=== PATIENT | male | born 1980 | race Caucasian/White ===

== ENCOUNTER 2024-11-01 15:20 | Inpatient (IN) | payer OTHER, SELFPAY ==
[2024-11-01 15:21] VITALS: BP 141/94; PULSE 99; RESP 18; TEMP 36.6; O2SAT 98
--- NOTE | 2024-11-01 15:37 | CT_ITS ---
We are attempting to reach an attending provider to discuss findings. An addendum with communication details will be sent when the communication is complete. EXAM: CT ABDOMEN AND PELVIS WITH INTRAVENOUS CONTRAST CLINICAL INDICATION: LLQ abd pain TECHNIQUE: Helically acquired images were obtained of the abdomen and pelvis with intravenous contrast. This CT exam was performed using one or more of the following dose reduction techniques: automated exposure control, adjustment of the mA and/or kV according to patient size, and/or use of iterative reconstruction technique. CONTRAST: IV 100mL [id number] COMPARISON: No relevant prior studies available. FINDINGS: LOWER THORAX: Minimal dependent atelectasis in the basilar lungs. No cardiomegaly. No significant pericardial effusion. ABDOMEN: LIVER: No significant abnormality. Homogeneous. No focal mass. GALLBLADDER AND BILE DUCTS: No significant abnormality. No calcified gallstones. No gallbladder distention or wall edema. No intra- or extrahepatic biliary ductal dilation. PANCREAS: No significant abnormality. No focal cystic or solid mass. SPLEEN: No significant abnormality. Normal size without focal cystic or solid mass. ADRENALS: No significant abnormality. No nodules. KIDNEYS AND URETERS: No significant abnormality. Normal renal size and position. No hydronephrosis. STOMACH AND BOWEL: Multiple loops of dilated small bowel are present with air-fluid levels most consistent with small bowel obstruction without discrete evidence of transition point. Colonic diverticulosis without evidence of acute diverticulitis. PELVIS: APPENDIX: No evidence of acute appendicitis. BLADDER: No significant abnormality. REPRODUCTIVE: Normal as visualized. No mass. ABDOMEN and PELVIS: INTRAPERITONEAL SPACE: No significant abnormality. No ascites or other fluid collection. No free air. BONES/JOINTS: No significant abnormality. No suspicious lytic or blastic abnormality. SOFT TISSUES: No significant abnormality. No discrete abdominal or pelvic wall hernia. VASCULATURE: No significant abnormality. Abdominal aorta is non-dilated. LYMPH NODES: Multiple prominent mesenteric lymph nodes are identified, nonspecific. CT/Abdomen/Pelvis W IV Cont ONLY IMPRESSION: 1. Multiple loops of dilated small bowel are present with air-fluid levels most consistent with small bowel obstruction without discrete evidence of transition point. 2. Colonic diverticulosis without evidence of acute diverticulitis. Electronically Signed: Meng Duran DO at 17:03 EST ,
--- NOTE | 2024-11-01 15:38 | ED.VIS.GI ---
HPI HPI - GI History of Present Illness Chief Complaint: Abd Pain Informant: patient Abdominal Pain/Flank Pain Onset: Days Context: Gradual Onset Timing: Intermittent Quality: Aching Location: LLQ Current Severity: Mild Maximum Severity: Mild Worsened by: Nothing Relieved by: Nothing Nausea/Vomiting/Emesis GI Symptom: Positive for Nausea and Vomiting Onset: Days Severity: Moderate Diarrhea/Melena/Hematochezia GI Symptom: Positive for Diarrhea Onset: Days Stool Quality: Positive for Watery Severity: Mild Associated Symptoms Associated Symptoms: Negative for Dysuria, Frequency, Hematuria or Urgency Narrative Narrative: Healthy 44-year-old male denies any prior abdominal surgery. Complaining of nausea, vomiting diarrhea for last 3 days since afternoon or evening. The vomiting is improved has been able to hold down p.o. fluids today. But he says it is aching intermittent left lower quadrant abdominal pain is never had before. Denies any trauma. Denies any dysuria. He has had a fever around 100. Prior similar symptoms: No Recent Illness/Hospitalization: No PFSH PFSH Medical History no medical history no medical history Home Medications ?Medication ?Instructions ?Recorded ?Last Taken ?Type No Known/Unobtainable [No Known 11/03/13 Unknown History Home Medications] Allergy/AdvReac Type Severity Reaction Status Date / Time No Known Allergies Allergy Verified 11/01/24 15:21 Family History no significant family his Surgical History no surgical history Social History Smoking Status: Former smoker ROS ROS ED ROS Narrative Nausea, vomiting and diarrhea. Fever. Left lower quadrant abdominal pain. Constitutional Constitutional ED: Denies chills or fever(s) ENT ENT ED: Denies ear pain Cardiovascular Cardiovascular: Denies chest pain Respiratory/Chest Respiratory/Chest: Denies cough or dyspnea Gastrointestinal Gastrointestinal: Reports abdominal pain, diarrhea, nausea and vomiting; Denies constipation or melena Genitourinary Genitourinary ED: Denies dysuria or hematuria Musculoskeletal Musculoskeletal: Denies arthralgias or back pain Integumentary Denies abscess or Abrasions Neurologic Neurologic: Denies headache(s) Psychiatric Psychiatric: Denies anxiety Endocrine Endocrinology: Denies polydipsia or polyphagia Hematologic/Lymphatic Hematologic/Lymphatic: Denies easy bleeding or easy bruising Allergic/Immunologic Allergic/Immunologic ED: Denies mouth swelling, tongue swelling or urticaria EXAM Physical Exam Narrative Exam Narrative: 44-year-old male sitting upright in bed. Vital signs are stable afebrile. No distress. H EENT exam unremarkable. Moist extremities. Neck nontender no lymphadenopathy. Lungs clear bilaterally. Heart regular rate and rhythm rate about 99 no murmur. Chest wall ribs nontender. Abdomen soft nondistended normal bowel sounds without peritoneal signs. Only tenderness is the left lower quadrant. Acute upper left upper quadrant nontender. No hernia or mass. No signs of obstruction. No pulsatile mass. No signs of trauma or bruising. Back nontender. Moving all 4 extremities. Nontender no edema. Normal strength and range of motion. Neurologically is awake and alert. Answering questions and following commands. No focal motor deficits. Const Vital Signs: 11/01/24 15:21 11/01/24 17:20 11/01/24 19:00 Temperature 97.8 F Temperature Source Temporal Pulse Rate 99 78 Respiratory Rate 18 Blood Pressure 141/94 H 138/80 H 128/89 H Blood Pressure Mean 109 99 102 Pulse Ox 98 Oxygen Delivery Method Room Air Positive well nourished and well developed; Negative for cachectic, contractures or unkempt General Appearance ED: well developed and NAD; Negative for unkempt, cachectic, contractures or pallor Nutritional Appearance: Negative for cachectic HEENT Reports moist mucous membranes normocephalic and atraumatic; Negative for trauma or tenderness Eyes PERRL and EOMs intact bilaterally General Eye ED: Negative for pale conjunctiva Neck no lymphadenopathy, supple and no JVD General: Negative for tenderness Carotids: Negative for other Lymph Lymphatic: other Resp normal respiratory effort and clear to auscultation bilaterally Effort and Inspection: Negative for respiratory distress Auscultation: Negative for rales, rhonchi, wheezes or diminished lung sounds Cardio regular rate, regular rhythm, S1 normal heart sound, S2 normal heart sound and no murmurs Rate: Negative for bradycardia or tachycardic Rhythm: Negative for abnormal rhythm GI non-distended and no masses; Negative for non-tender GI Narrative: Left lower quadrant tenderness only. No peritoneal signs. Inspection: Negative for abdominal distention Auscultation: normoactive bowel sounds Palpation: soft and tender; Negative for guarding, rigid, hernia, mass, pulsatile mass or rebound tenderness present Back/Spine no CVA tenderness Extremity full ROM General Extremety ED: Negative for edema or tenderness General Extremity: Negative for edema Neuro CN's II-XII intact bilaterally and moves all extremities Sensorium / Orientation: alert, oriented to person, oriented to place and oriented to time; Negative for orientation impaired Motor Exam: strength 5/5 throughout Psych mental status grossly normal and thought process normal Appearance: Negative for unkempt Attitude: No agitated Mood & Affect: Negative for depressed, anxious or tearful Skin no wounds General Skin Exam: Negative for jaundice or pallor Lesions: no lesions Rashes: no rashes Trauma: Negative for abrasion Nails: Negative for discolored MDM MDM MDM Narrative Medical decision making narrative: 44-year-old male left lower quadrant abdominal pain this is either viral gastroenteritis or possibly diverticulitis versus other.. CAT scan labs are pending. He did not waiting for pain but I will give him Zofran for his nausea. He is not have any urinary symptoms. Repeat exam patient doing much better at 7:20. He has Zofran and some morphine. His abdomen is benign. Given p.o. fluid challenge and will see how he is doing. Clinically I think this a viral gastroenteritis. I discussed the CAT scan results. With the radiologist.) the symptoms he said this could all be secondary to enteritis versus early small bowel obstruction. Patient had no prior abdominal surgery. Repeat exam at 9:25 PM. Still in recurrent pain. Is able to hold down fluids but makes him nauseated. Will treat this as a possible small bowel obstruction. Have the hospitalist and general surgeon on page. Patient will get a another dose of pain medication. I discussed test results with both he and his . History & Record Review Discussion w/independent historian: Patient Lab Data Attestation: I reviewed the patient's lab results. Lab results narrative: CBC normal. White count of 9. H&H 15 and 45. Platelets 264. Electrolytes gap 4. Normal BUN and creatinine. Glucose 111. Urinalysis shows no nitrates. 0 red cells. 5-10 white cells. 2+ bacteria. Culture will be sent. He is having no urinary symptoms. Labs: Laboratory Results - last 24 hr 11/01/24 11/01/24 15:33 15:45 WBC 9.2 RBC 4.91 Hgb 15.1 Hct 45.9 MCV 93.5 MCH 30.8 MCHC 32.9 RDW Std Deviation 43.7 RDW Coeff of [place] 12.8 Plt Count 264 MPV 11.0 Immature Gran % (Auto) 0.300 Neut % (Auto) 71.5 H Lymph % (Auto) 17.7 L [place] % (Auto) 9.3 Eos % (Auto) 0.9 Baso % (Auto) 0.3 Absolute Neuts (auto) 6.6 Absolute Lymphs (auto) 1.62 Nucleated RBC % 0 Sodium 137 Potassium 3.5 Chloride 103 Carbon Dioxide 30.0 Anion Gap 4 L BUN 11 Creatinine 0.98 Est GFR (MDRD) Af Amer 108 Est GFR (MDRD) Non-Af 89 BUN/Creatinine Ratio 11.3 Glucose 111 H Calcium 9.0 Urine Color Yellow Urine Clarity Sl. Cloudy Urine pH 6.0 Ur Specific [place] 1.015 Urine Protein 30 H Urine Glucose (UA) Normal Urine Ketones Negative Urine Occult Blood 10 H Urine Nitrite Negative Urine Bilirubin 1 H Urine Urobilinogen 8 H Ur Leukocyte Esterase 25 H Urine RBC 0 SEEN Urine WBC 5-10 SEEN Ur Squamous Epith Cells 0-5 SEEN Urine Bacteria 2+ Urine Mucus 2+ Radiography Diagnostic Testing: Clinical Impression(s) from Imaging Studies Abdomen/Pelvis CT 11/01/24 15:37 IMPRESSION: 1. Multiple loops of dilated small bowel are present with air-fluid levels most consistent with small bowel obstruction without discrete evidence of transition point. 2. Colonic diverticulosis without evidence of acute diverticulitis. Electronically Signed: Meng Duran DO at 17:03 EST , ADDENDUM: 11/01/24 9348 IMPRESSION: 1. Multiple loops of dilated small bowel are present with air-fluid levels most consistent with small bowel obstruction without discrete evidence of transition point. 2. Colonic diverticulosis without evidence of acute diverticulitis. N.B. : The above Results were Read Back by Meng Duran DO to James Knox MD, and understanding confirmed on 11/01/2024 17:12:24 (ET). Electronically Signed: Meng Duran DO at 17:03 EST , Discharge Plan Triage Chief Complaint: Abd Pain ED Provider: James Knox Dx/Rx/DC Orders Clinical Impression: Abdominal pain, SBO (small bowel obstruction), Vomiting, Diarrhea Prescriptions: No Action No Known Home Medications Primary Care Provider: Mark Johns Referrals: Care Physician,No Primary [Non-Staff] - Print Language: Lao Disposition Disposition: Acute Care Hospital
[2024-11-01] MEDS: Ondansetron 4 MG/2 ML Vial IV ×2 (15:41→20:18)
[2024-11-01 15:54] LABS: Red Blood Cells-Urine 0 SEEN /hpf (0-5)
[2024-11-01 15:55] LABS: Absolute Lymphocyte Count 1.62 X10^3/uL (0.83-4.51); Absolute Neutrophil Count 6.6 X10^3/uL (2.0-7.7); Basophil# 0.03 X10^3/uL; Basophil% 0.3 % (0-1); Eosinophil# 0.08 X10^3/uL; Eosinophils% 0.9 % (0-5); Hematocrit 45.9 % (40-54); Hemoglobin 15.1 g/dL (13.0-16.5); Lymphocyte # 1.62 X10^3/ul (0.83-4.51); Lymphocyte % 17.7 % (19-41); Mean Corp Hgb Conc 32.9 g/dL (32-36); Mean Corpuscular Hgb 30.8 pg (27.0-32.0); Mean Corpuscular Volume 93.5 fL (80-94); Monocyte# 0.85 X10^3/uL; Monocyte% 9.3 % (0-10); NRBC Flagged by Analyzer 0 % (0-5); Neutrophil # 6.55 X10^3/uL (2.7-7.7); Neutrophil % 71.5 % (47-70); Platelet Count 264 K/mm3 (150-450); RBC Distribution Width CV 12.8 % (11.6-14.6); RBC Distribution Width SD 43.7 fl (35.1-43.9); Red Blood Count 4.91 M/mm3 (4.6-6.2); White Blood Count 9.2 K/mm3 (4.4-11.0)
[2024-11-01 16:00] LABS: Color, Urine Yellow (Yellow); Glucose, Dipstick Normal (Normal); Ketone-Dipstick Negative (Negative); Leukocyte Esterase-Dipstick 25 /ul (Negative); Nitrite-Dipstick Negative (Negative); Occult Blood-Urine 10 /ul (Negative); Protein-Dipstick 30 mg/dl (Negative); Specific Gravity, Urine 1.015 (1.002-1.030); Urine Clarity Sl. Cloudy (Clear); Urine Urobilinogen 8 mg/dl (Normal)
[2024-11-01 16:04] LABS: Anion Gap 4 (5-15); BUN 11 mg/dL (7-18); BUN/Creat Ratio 11.3 RATIO (10-20); Chloride 103 mmol/L (98-107); Creatinine, Serum 0.98 mg/dL (0.70-1.30); EST Glomerular Filtration Rate 89 mL/min (>60); Est Glom Filt Rate - Afr Amer 108 mL/min (>60); Glucose 111 mg/dL (74-106); Potassium 3.5 mmol/L (3.5-5.1); Sodium Level 137 mmol/L (136-145)
[2024-11-01 16:13] LABS: Urine Bilirubin Dipstick 1 mg/dL (Negative)
[2024-11-01 16:18] LABS: White Blood Cells 5-10 SEEN /hpf (0-5)
[2024-11-01 16:19] LABS: Bacteria 2+ /hpf (None Seen); Mucous, Urine 2+ /hpf (<or=2+); Squamous Epithelial Cells - UA 0-5 SEEN /hpf (0-5)
[2024-11-01 17:20] VITALS: BP 138/80
[2024-11-01] MEDS: morphine 8 MG/ML Syringe 6 MG IV ×2 (17:46→21:33)
[2024-11-01 19:00] VITALS: BP 128/89; PULSE 78
[2024-11-01 20:20] VITALS: BMI 33.5
[2024-11-01 21:00] VITALS: BP 117/80; PULSE 91; RESP 16; RESP 18; TEMP 37.2; O2SAT 95
--- NOTE | 2024-11-01 22:30 | HP.PCM.HOS_ITS ---
HPI - General General Date of Admission: 11/01/24 HPI Narrative MG DALE, is a 44 M who presents to the hospital with nausea, vomiting, and diarrhea. He went to a potluck on Sunday and started having significant nausea and vomiting starting night. Over the course the last couple of days he has had increasing abdominal pain and cramping as well as continued nausea and vomiting. Today he did have an episode of very liquid stool and with his continued symptoms he presented to the hospital. Vital signs are stable and lab work is unremarkable, he is not dehydrated. CT scan of his abdomen pelvis does show dilated loops of small bowel which could be a severe viral gastroenteritis versus a small bowel obstruction however he denies a history of having any type of abdominal surgery there is no evidence of hernia and the only other diagnosis would be cancer which is unlikely at the moment as there is nothing seen on imaging. [facility] Medical History no medical history Home Medications ?Medication ?Instructions ?Recorded ?Last Taken ?Type No Known/Unobtainable [No Known 11/03/13 Unknown History Home Medications] Allergy/AdvReac Type Severity Reaction Status Date / Time No Known Allergies Allergy Verified 11/01/24 15:21 Family History (Updated 11/01/24 @ 22:[address] Danny Byrd MD) Other Heart disease Family History no significant family his Surgical History no surgical history no surgical history Social History Smoking Status: Former smoker ROS Constitutional Constitutional: Denies chills, fatigue, fever(s) or malaise Eyes Eyes: Denies blurry vision ENT HEENT: Denies headache(s) or nasal discharge Cardiovascular Cardiovascular: Denies chest pain, dyspnea on exertion or syncope Respiratory/Chest Respiratory/Chest: Denies cough, shortness of breath at rest or shortness of breath with exertion Gastrointestinal Gastrointestinal: Reports abdominal pain, diarrhea, nausea and vomiting; Denies constipation Genitourinary Genitourinary: Denies dysuria Neurologic Neurologic: Denies focal weakness, numbness or tremor(s) Psychiatric Psychiatric: Denies anxiety or depression Vital Signs Vital Signs Vital Signs: 11/01/24 15:21 11/01/24 17:20 11/01/24 19:00 Temperature 97.8 F Temperature Source Temporal Pulse Rate 99 78 Respiratory Rate 18 Blood Pressure 141/94 H 138/80 H 128/89 H Blood Pressure Mean 109 99 102 Pulse Ox 98 Oxygen Delivery Method Room Air 11/01/24 21:00 11/01/24 21:00 Temperature 98.9 F Temperature Source Pulse Rate 91 91 Respiratory Rate 16 18 Blood Pressure 117/80 117/80 Blood Pressure Mean 92 92 Pulse Ox 95 95 Oxygen Delivery Method Room Air Weight Weight: 240 lb 4.862 oz Body Mass Index (BMI) 33.5 Physical Exam Narrative General: Alert, Oriented x3, Cooperative, No apparent distress HEENT: Atraumatic, PERRLA, EOMI, Normocephalic Oral: Moist Mucosa Neck: Supple, No JVD Lungs: Clear to auscultation, Normal air movement, No rhonchi, No wheeze, No rales Cardiovascular: Tachycardic, Regular Rhythm, Normal S1, Normal S2, No murmurs Abdomen: Soft, minimal tender, Non-Distended, No Hepato-splenomegaly Extremities: No edema, Capillary Refill Less than 3 Seconds Skin: No rashes, No breakdown Musculoskeletal: No Tenderness to Palpation of Joints or Extremities Neurological: No focal neurological deficits, Motor Exam 5/5 strength throughout, Sensory exam intact to light touch and pain Psych/Mental Status: Normal Affect, Appropriate Results Lab / Micro Data 11/01/24 15:33 11/01/24 15:33 Labs: Laboratory Results - last 24 hr 11/01/24 15:33: WBC 9.2, RBC 4.91, Hgb 15.1, Hct 45.9, MCV 93.5, MCH 30.8, MCHC 32.9, RDW Std Deviation 43.7, RDW Coeff of Donavon 12.8, Plt Count 264, MPV 11.0, Immature Gran % (Auto) 0.300, Neut % (Auto) 71.5 H, Lymph % (Auto) 17.7 L, [place] % (Auto) 9.3, Eos % (Auto) 0.9, Baso % (Auto) 0.3, Absolute Neuts (auto) 6.6, Absolute Lymphs (auto) 1.62, Nucleated RBC % 0, Sodium 137, Potassium 3.5, Chloride 103, Carbon Dioxide 30.0, Anion Gap 4 L, BUN 11, Creatinine 0.98, Est GFR (MDRD) Af Amer 108, Est GFR (MDRD) Non-Af 89, BUN/Creatinine Ratio 11.3, G lucose 111 H, Calcium 9.0 11/01/24 15:45: Urine Color Yellow, Urine Clarity Sl. Cloudy, Urine pH 6.0, Ur Specific [place] 1.015, Urine Protein 30 H, Urine Glucose (UA) Normal, Urine Ketones Negative, Urine Occult Blood 10 H, Urine Nitrite Negative, Urine Bilirubin 1 H, Urine Urobilinogen 8 H, Ur Leukocyte Esterase 25 H, Urine RBC 0 SEEN, Urine WBC 5-10 SEEN, Ur Squamous Epith Cells 0-5 SEEN, Urine Bacteria 2+, Urine Mucus 2+ Imaging Radiology Impression Abdomen/Pelvis CT 11/01/24 15:37 IMPRESSION: 1. Multiple loops of dilated small bowel are present with air-fluid levels most consistent with small bowel obstruction without discrete evidence of transition point. 2. Colonic diverticulosis without evidence of acute diverticulitis. Electronically Signed: Meng Duran DO at 17:03 EST , ADDENDUM: 11/01/24 1719 IMPRESSION: 1. Multiple loops of dilated small bowel are present with air-fluid levels most consistent with small bowel obstruction without discrete evidence of transition point. 2. Colonic diverticulosis without evidence of acute diverticulitis. N.B. : The above Results were Read Back by Meng Duran DO to James Knox MD, and understanding confirmed on 11/01/2024 17:12:24 (ET). Electronically Signed: Meng Duran DO at 17:03 EST , Assessment & Plan Assessment/Plan (1) Viral gastroenteritis: PLAN: Plan 1. Viral versus bacterial gastroenteritis ? Started after he ate a potluck on Sunday ? Continue with supportive care ? Zofran as needed, IV fluids ? Small bowel obstruction is of less concern as he does not have the history for 1 however if he continues to have significant nausea, vomiting, abdominal pain without flatus or diarrhea may benefit from a small bowel follow-through ? Will hold off of any narcotics given the potential for ileus with the severity of enteritis that he has DVT: Ambulation 75 minutes was spent on direct patient care, including documentation as well as chart review and collaboration with colleagues Charges/Coding Visit Charges Inpatient E&M: 85727 Init Hosp L3
[2024-11-01 22:40] VITALS: BMI 32.5
[2024-11-01 23:00] VITALS: BP 119/85; PULSE 86; RESP 16; TEMP 36.6; O2SAT 97
[2024-11-01] MEDS: 0.9% Normal Saline (1000mL) 1,000 ML 75 ML IV (23:20)
[2024-11-02] MEDS: Acetaminophen 325 MG Tablet 650 MG PO ×3 (01:54→12:33)
[2024-11-02] MEDS: 0.9% Saline Lock 10 ML Syringe IV ×2 (01:57→21:23)
[2024-11-02] MEDS: Ondansetron 4 MG/2 ML Vial IV ×3 (01:57→21:23)
[2024-11-02 04:55] VITALS: BP 122/80; PULSE 91; RESP 16; TEMP 37.3; O2SAT 98
[2024-11-02 06:06] LABS: Absolute Lymphocyte Count 1.39 X10^3/uL (0.83-4.51); Absolute Neutrophil Count 7.9 X10^3/uL (2.0-7.7); Basophil# 0.02 X10^3/uL; Basophil% 0.2 % (0-1); Eosinophil# 0.02 X10^3/uL; Eosinophils% 0.2 % (0-5); Hematocrit 43.3 % (40-54); Hemoglobin 14.4 g/dL (13.0-16.5); Lymphocyte # 1.39 X10^3/ul (0.83-4.51); Lymphocyte % 13.2 % (19-41); Mean Corp Hgb Conc 33.3 g/dL (32-36); Mean Corpuscular Hgb 30.8 pg (27.0-32.0); Mean Corpuscular Volume 92.5 fL (80-94); Mean Platelet Vol. 10.9 fl (6.2-12.0); Monocyte# 1.16 X10^3/uL; NRBC Flagged by Analyzer 0 % (0-5); Neutrophil % 74.9 % (47-70); Platelet Count 239 K/mm3 (150-450); RBC Distribution Width CV 12.8 % (11.6-14.6); RBC Distribution Width SD 43.2 fl (35.1-43.9); Red Blood Count 4.68 M/mm3 (4.6-6.2); White Blood Count 10.5 K/mm3 (4.4-11.0)
[2024-11-02 06:56] LABS: Anion Gap 9 (5-15); BUN 12 mg/dL (7-18); BUN/Creat Ratio 14.5 RATIO (10-20); Calcium,Total 8.5 mg/dL (8.5-10.1); Chloride 101 mmol/L (98-107); Creatinine, Serum 0.83 mg/dL (0.70-1.30); EST Glomerular Filtration Rate 108 mL/min (>60); Est Glom Filt Rate - Afr Amer 130 mL/min (>60); Estimated Creatinine Clearance 142.22 ml/min; Glucose 111 mg/dL (74-106); Potassium 3.5 mmol/L (3.5-5.1); Sodium Level 136 mmol/L (136-145)
[2024-11-02] MEDS: Ensure Clear 120 ML Liquid PO (07:42)
[2024-11-02 09:35] VITALS: BP 127/81; PULSE 89; RESP 16; TEMP 36.9; O2SAT 95
[2024-11-02] MEDS: Dicyclomine 10 MG Capsule 20 MG PO ×2 (09:40→16:40)
[2024-11-02] MEDS: Metoclopramide 10 MG/2 ML Vial 5 MG IV (09:41)
[2024-11-02 11:29] VITALS: BP 120/84; PULSE 96; RESP 16; TEMP 37; O2SAT 96
[2024-11-02] MEDS: 0.9% Normal Saline (1000mL) 1,000 ML 75 ML IV (11:46)
--- NOTE | 2024-11-02 16:01 | CT_ITS ---
STUDY: CT Abdomen And Pelvis W/O Contrast Injection 11/02/2024 5:21 PM REASON FOR EXAM: Male, 44 years old. ABDOMINAL PAIN Ileus vs SBO TECHNIQUE: Transaxial images were obtained without oral contrast, and without intravenous contrast. Individualized dose optimization techniques were used for this CT. COMPARISON: Study done yesterday FINDINGS: There is bilateral infiltrate/ atelectasis. The visualized portions of the heart are within normal limits. Unremarkable liver. Unremarkable gallbladder and extrahepatic biliary system. Unremarkable spleen. Unremarkable pancreas. Unremarkable bilateral adrenal glands. No acute findings of the right kidney. No acute findings of the left kidney. Unremarkable visualized stomach. There are dilated loops of the small intestine with a non-distended colon consistent with a small bowel obstruction. There are multiple colonic diverticula consistent with diverticulosis. There is non-visualization of the appendix. Dilated small bowel loops have a stairstep pattern consistent for small bowel obstruction. There are no acute findings of the abdominal aorta. Unremarkable inferior vena cava. Unremarkable urinary bladder. Trace free fluid in the pelvis. There is an umbilical hernia containing fat. Unremarkable osseous structures. CT/Abdomen/Pelvis without Cont IMPRESSION: (NOT LISTED IN ORDER OF SIGNIFICANCE) Small bowel obstruction visualized. No evidence for transition point. The degree of small bowel dilation is worse. Bilateral pneumonia. Trace free fluid in the pelvis. Other findings as above. Electronically Signed: Sree Ann MD at 17:25 EST ,
--- NOTE | 2024-11-02 16:05 | PCM.PN.HOSP ---
Reason for Visit Reason for Visit: Nausea/vomiting/diarrhea Subjective Subjective Patient this morning stated he was not feeling much better. We maintained him on IV fluids and antiemetics and he did trial some clear liquid diet throughout the day but he stated he was getting more indigestion and felt worse. I discussed with him that it sounds like he may be developing an early on small bowel obstruction so we will repeat a CT of his abdomen pelvis and if that is positive we will go ahead and drop an NG and see how he feels tomorrow. Objective Data Objective Data Vital Signs: Vital Signs Temp Pulse Resp BP Pulse Ox O2 Del Method 98.6 F 96 16 120/84 H 96 Room Air 11/02/24 11:29 11/02/24 11:29 11/02/24 11:29 11/02/24 11:29 11/02/24 11:29 11/02/24 14:16 Oxygen Delivery Method Room Air Weight: 106.095 kg Body Mass Index (BMI) 32.5 Intake & Output: Intake and Output for Last 24 Hours 10/31/24 11/01/24 11/02/24 23:59 23:59 23:59 Intake Total 1232.5 / 1232.5 Balance 1232.5 / 1232.5 Lab / Micro Data 11/02/24 05:35 11/02/24 05:35 Labs: Laboratory Results - last 24 hr 11/01/24 15:45: Urine Color Yellow, Urine Clarity Sl. Cloudy, Urine pH 6.0, Ur Specific [place] 1.015, Urine Protein 30 H, Urine Glucose (UA) Normal, Urine Ketones Negative, Urine Occult Blood 10 H, Urine Nitrite Negative, Urine Bilirubin 1 H, Urine Urobilinogen 8 H, Ur Leukocyte Esterase 25 H, Urine RBC 0 SEEN, Urine WBC 5-10 SEEN, Ur Squamous Epith Cells 0-5 SEEN, Urine Bacteria 2+, Urine Mucus 2+ 11/02/24 05:35: WBC 10.5, RBC 4.68, Hgb 14.4, Hct 43.3, MCV 92.5, MCH 30.8, MCHC 33.3, RDW Std Deviation 43.2, RDW Coeff of Donavon 12.8, Plt Count 239, MPV 10.9, Immature Gran % (Auto) 0.500, Neut % (Auto) 74.9 H, Lymph % (Auto) 13.2 L, [place] % (Auto) 11.0 H, Eos % (Auto) 0.2, Baso % (Auto) 0.2, Absolute Neuts (auto) 7.9 H, Absolute Lymphs (auto) 1.39, Nucleated RBC % 0, Sodium 136, Potassium 3.5, Chloride 101, Carbon Dioxide 25.0, Anion Gap 9, BUN 12, Creatinine 0.83, Estim Creat Clear Calc 142.22, Est GFR (MDRD) Af Amer 130, Est GFR (MDRD) Non-Af 108, BUN/Creatinine Ratio 14.5, Glucose 111 H, Calcium 8.5 Radiography Diagnostic Testing: Radiology Impression Abdomen/Pelvis CT 11/01/24 15:37 IMPRESSION: 1. Multiple loops of dilated small bowel are present with air-fluid levels most consistent with small bowel obstruction without discrete evidence of transition point. 2. Colonic diverticulosis without evidence of acute diverticulitis. Electronically Signed: Meng Duran DO at 17:03 EST , ADDENDUM: 11/01/24 1719 IMPRESSION: 1. Multiple loops of dilated small bowel are present with air-fluid levels most consistent with small bowel obstruction without discrete evidence of transition point. 2. Colonic diverticulosis without evidence of acute diverticulitis. N.B. : The above Results were Read Back by Meng Duran DO to James Knox MD, and understanding confirmed on 11/01/2024 17:12:24 (ET). Electronically Signed: Meng Duran DO at 17:03 EST , Physical Exam Const alert, oriented x3, no apparent distress and well nourished; Negative for average body habitus or healthy appearing Constitutional Narrative: Obese, middle-aged, white male, lying in bed, appears uncomfortable but not toxic HEENT head/scalp atraumatic and moist oral mucous membranes HEENT Narrative: Mallampati 3, no thrush Head and Scalp: normocephalic Resp normal respiratory effort, no retractions, no use of accessory muscles and clear to auscultation bilaterally Auscultation: Negative for rales, rhonchi or wheezes Cardio regular rate, regular rhythm, S1 normal heart sound, S2 normal heart sound, no murmurs, no rub, no gallops and no clicks GI GI Narrative: Abdomen is distended, mild diffuse tenderness, bowel sounds are hypoactive, soft Extremity no clubbing, cyanosis or edema Extremity Narrative: Pedal pulses are 2+ Neuro moves all extremities and no focal motor deficits Speech: speech normal Psych Psych Narrative: Affect is slightly flat but likely related to not feeling well, eye contact is good and patient interacts appropriately Assessment & Plan Assessment/Plan (1) Enteritis: PLAN: Plan Enteritis due to unknown etiology -CT was suggestive of possible developing small bowel obstruction however patient was passing flatus on admission -Currently no flatus since this morning -Ongoing nausea vomiting and feels like stomach is getting further distended -Will continue IV fluids through the night -Make n.p.o. -Continue as needed antiemetics -Start as needed pain medication -Repeat CT of the abdomen pelvis with change in examine and if more impressive for bowel obstruction will start NG tube to low intermittent suction -If continues to have problems may need to involve general surgery tomorrow if bowel obstruction is present -Encourage frequent mobility Obesity -BMI 32.6 -Recommend weight loss -complicates treatment, prognosis, outcomes History of tobacco abuse -Remote DVT prophylaxis -Start Lovenox subcu daily CODE STATUS -Full code Charges/Coding Visit Charges Inpatient E&M: 05591 Subs Hosp L2
[2024-11-02 16:48] VITALS: BP 128/85; PULSE 84; RESP 16; TEMP 37.3; O2SAT 97
--- NOTE | 2024-11-02 17:04 | RAD_ITS ---
STUDY: XR Abdomen 1 View 11/02/2024 5:41 PM REASON FOR EXAM: Male, 44 years old. ABDOMINAL PAIN NGT -- KUB with both diaphragms for NG/OG Verification TECHNIQUE: XR Abdomen 1 View COMPARISON: None FINDINGS: Normal visualized lung bases. There are dilated loops of the small intestine with a non-distended colon consistent with a small bowel obstruction. There is a feeding tube/ nasogastric tube noted. The tip is in the region of the stomach. There is no demonstrated free abdominal air. The visualized liver, spleen and kidneys are grossly normal in size and morphology. Normal soft tissue structures. Normal visualized osseous structures. RAD/Abdomen Single View (Portable) IMPRESSION: There is a feeding tube/ nasogastric tube noted. The tip is in the region of the stomach. Small bowel dilation may suggest small bowel obstruction. Electronically Signed: Sree Ann MD at 18:15 EST ,
[2024-11-02] MEDS: Phenol/Sodium Phenolate 180ML 3 SPRAY MUCOUS MEM (18:17)
[2024-11-02 20:11] VITALS: BP 134/96; PULSE 95; RESP 16; TEMP 37.6; O2SAT 96
[2024-11-02] MEDS: 0.9% Normal Saline (100mL Bag) 100 ML 15 ML IV (21:16)
[2024-11-02] MEDS: Pantoprazole Sodium 40 MG in 0.9% Normal Saline (100mL MB+) 100 ML 330 MG IV (21:20)
[2024-11-02 22:49] VITALS: BP 136/91; PULSE 96; RESP 15; TEMP 36.8; O2SAT 95
[2024-11-03] MEDS: 0.9% Normal Saline (1000mL) 1,000 ML 75 ML IV (02:19)
[2024-11-03 04:36] VITALS: BP 122/85; PULSE 92; RESP 16; TEMP 36.9; O2SAT 95
[2024-11-03] MEDS: Enoxaparin 40 MG/0.4 ML Syringe SC (05:24)
[2024-11-03] MEDS: 0.9% Saline Lock 10 ML Syringe IV ×2 (06:43→10:43)
[2024-11-03] MEDS: Ondansetron 4 MG/2 ML Vial IV (06:43)
[2024-11-03 07:23] LABS: Absolute Lymphocyte Count 1.79 X10^3/uL (0.83-4.51); Absolute Neutrophil Count 5.6 X10^3/uL (2.0-7.7); Basophil# 0.03 X10^3/uL; Basophil% 0.3 % (0-1); Eosinophil# 0.05 X10^3/uL; Eosinophils% 0.6 % (0-5); Hematocrit 43.2 % (40-54); Hemoglobin 14.4 g/dL (13.0-16.5); Lymphocyte # 1.79 X10^3/ul (0.83-4.51); Lymphocyte % 20.8 % (19-41); Mean Corp Hgb Conc 33.3 g/dL (32-36); Mean Corpuscular Hgb 30.8 pg (27.0-32.0); Mean Corpuscular Volume 92.5 fL (80-94); Mean Platelet Vol. 10.7 fl (6.2-12.0); Monocyte% 12.8 % (0-10); NRBC Flagged by Analyzer 0 % (0-5); Neutrophil # 5.61 X10^3/uL (2.7-7.7); Neutrophil % 65.4 % (47-70); Platelet Count 258 K/mm3 (150-450); RBC Distribution Width CV 12.9 % (11.6-14.6); RBC Distribution Width SD 43.5 fl (35.1-43.9); Red Blood Count 4.67 M/mm3 (4.6-6.2); White Blood Count 8.6 K/mm3 (4.4-11.0)
[2024-11-03 07:45] VITALS: BP 140/85; PULSE 98; RESP 18; TEMP 36.5; O2SAT 93
[2024-11-03 07:46] VITALS: PULSE 90
[2024-11-03 08:10] LABS: ALB/GLOB Ratio 0.9 RATIO (0.9-2.4); AST(SGOT) 51 U/L (15-37); Alanine Aminotransfer ALT/SGPT 110 U/L (16-61); Albumin, Serum 3.3 g/dL (3.2-5.0); Alkaline Phosphatase 61 U/L (45-117); Anion Gap 8 (5-15); BUN 12 mg/dL (7-18); BUN/Creat Ratio 14.3 RATIO (10-20); Calcium,Total 8.5 mg/dL (8.5-10.1); Chloride 105 mmol/L (98-107); Creatinine, Serum 0.84 mg/dL (0.70-1.30); EST Glomerular Filtration Rate 106 mL/min (>60); Est Glom Filt Rate - Afr Amer 128 mL/min (>60); Estimated Creatinine Clearance 140.52 ml/min; Globulin 3.8 g/dL (2.2-4.2); Glucose 92 mg/dL (74-106); LDH 172 U/L (87-241); Magnesium 2.4 mg/dL (1.6-2.6); Phosphorus 3.1 mg/dL (2.5-4.9); Potassium 3.2 mmol/L (3.5-5.1); Protein, Total 7.1 g/dL (6.4-8.2); Sodium Level 139 mmol/L (136-145)
--- NOTE | 2024-11-03 08:14 | PCM.PN.HOSP ---
Reason for Visit Reason for Visit: Abdominal pain/nausea/vomiting Subjective Subjective Patient states he feels about thousand times better today. Passing flatus and tolerating clear liquids without any problem. Please that his NG tube was able to be removed. Anxious to go home tomorrow possible. Objective Data Objective Data Vital Signs: Vital Signs Temp Pulse Resp BP Pulse Ox O2 Del Method 97.7 F L 90 18 140/85 H 93 Room Air 11/03/24 07:45 11/03/24 07:46 11/03/24 07:45 11/03/24 07:45 11/03/24 07:45 11/03/24 07:46 Oxygen Delivery Method Room Air Weight: 106.095 kg Body Mass Index (BMI) 32.5 Intake & Output: Intake and Output for Last 24 Hours 11/01/24 11/02/24 11/03/24 23:59 23:59 23:59 Intake Total 1342.5 / 1342.5 1106 / 1106 Output Total 1875 / 1875 400 / 400 Balance -532.5 / -532.5 706 / 706 Lab / Micro Data 11/03/24 07:00 11/03/24 07:00 Labs: Laboratory Results - last 24 hr 11/03/24 07:00: WBC 8.6, RBC 4.67, Hgb 14.4, Hct 43.2, MCV 92.5, MCH 30.8, MCHC 33.3, RDW Std Deviation 43.5, RDW Coeff of Donavon 12.9, Plt Count 258, MPV 10.7, Immature Gran % (Auto) 0.100, Neut % (Auto) 65.4, Lymph % (Auto) 20.8, [place] % (Auto) 12.8 H, Eos % (Auto) 0.6, Baso % (Auto) 0.3, Absolute Neuts (auto) 5.6, Absolute Lymphs (auto) 1.79, Nucleated RBC % 0, Sodium 139, Potassium 3.2 L, Chloride 105, Carbon Dioxide 26.0, Anion Gap 8, BUN 12, Creatinine 0.84, Estim Creat Clear Calc 140.52, Est GFR (MDRD) Af Amer 128, Est GFR (MDRD) Non-Af 106, BUN/Creatinine Ratio 14.3, Glucose 92, Calcium 8.5, Phosphorus 3.1, Magnesium 2.4, Total Bilirubin 0.80, AST 51 H, ALT 110 H, Alkaline Phosphatase 61, Lactate Dehydrogenase 172, Total Protein 7.1, Albumin 3.3, Globulin 3.8, Albumin/Globulin Ratio 0.9, TSH 5.370 H Radiography Diagnostic Testing: Radiology Impression Abdomen/Pelvis CT 11/02/24 16:01 IMPRESSION: (NOT LISTED IN ORDER OF SIGNIFICANCE) Small bowel obstruction visualized. No evidence for transition point. The degree of small bowel dilation is worse. Bilateral pneumonia. Trace free fluid in the pelvis. Other findings as above. Electronically Signed: Sree Ann MD at 17:25 EST , KUB X-Ray 11/02/24 17:04 IMPRESSION: There is a feeding tube/ nasogastric tube noted. The tip is in the region of the stomach. Small bowel dilation may suggest small bowel obstruction. Electronically Signed: Sree Ann MD at 18:15 EST , Physical Exam Const alert, oriented x3, no apparent distress and well nourished; Negative for average body habitus or healthy appearing Constitutional Narrative: Obese, middle-aged, white male, sitting up in bed with multiple family members at bedside, appears comfortable, nontoxic HEENT head/scalp atraumatic and moist oral mucous membranes HEENT Narrative: Mallampati 3-4, no thrush Head and Scalp: normocephalic Resp normal respiratory effort, no retractions, no use of accessory muscles and clear to auscultation bilaterally Auscultation: Negative for rales, rhonchi or wheezes Cardio regular rate, regular rhythm, S1 normal heart sound, S2 normal heart sound, no murmurs, no rub, no gallops and no clicks GI normal to inspection, nondistended, normoactive bowel sounds, soft to palpation and non-tender Extremity no clubbing, cyanosis or edema Extremity Narrative: Pedal pulses are 2+ Neuro moves all extremities and no focal motor deficits Speech: speech normal Psych affect normal Psych Narrative: Very pleasant, interacts appropriately Assessment & Plan Assessment/Plan (1) Enteritis: (2) Viral gastroenteritis: (3) Infection due to Norovirus species: PLAN: Plan Terminal ileitis secondary to norovirus/ciguatoxin with complicating small bowel obstruction -CT was suggestive of possible developing small bowel obstruction however patient was passing flatus on admission -Small bowel obstruction now resolved -NG tube removed -Clear liquid diet -Patient did have small bowel follow-through which was negative for obstruction today -Probable advancement to regular diet tomorrow as long as he is tolerating well and discharged home -General Surgery following-appreciate input Hypokalemia -P.o. potassium replacement with 40 mill equivalents -Recheck in a.m. -Magnesium levels within normal limits Mild transaminitis -Baseline is unclear -Patient very likely has fatty liver at baseline -If stable would recommend that patient follow-up if trend down no need for further investigation -Previous lipids have not been well-controlled even back in 2013 Obesity -BMI 32.6 -Recommend weight loss -complicates treatment, prognosis, outcomes History of tobacco abuse -Remote DVT prophylaxis -Continue subcu Lovenox CODE STATUS -Full code Charges/Coding Visit Charges Inpatient E&M: 07271 Subs Hosp L2
--- NOTE | 2024-11-03 08:24 | CON.PCM.SX_ITS ---
Assessment & Plan Assessment/Plan (1) SBO (small bowel obstruction): PLAN: I have been consulted in conjunction with Dr. Mckeon. He will independently evaluate this patient. Patient is a 44 y/o M who presents with a 4 day history of nausea, vomiting, diarrhea and abdominal pain. CT scan of ab/pel demonstrated small bowel obstruction. Ng tube was placed and removed approximately 2275 cc throughout yesterday and last night. Recommend small bowel follow-through today with Gastrografin through NG tube with KUB immediately, 1H and 3H. No surgical intervention planned at this time. Will determine future treatment plan once the small bowel follow-through is completed. Patient has had the opportunity to ask and have questions answered. Plan for conservative measures and proceed with surgical intervention only if symptoms worsen. Patient verbally understands and agrees with the plan. Thank you for allowing us to participate in this patient's care. HPI Consult Data Date of Consult: 11/03/24 HPI Narrative Reason for Consultation: Small bowel obstruction HPI Narrative: MG DALE, is a 44 M who presents with a 4 day history of nausea, vomiting and abdominal pain. Patient states on Sunday night he had a [facility]. He notes over eating there. He stated he had a lot of guacamole and little cocktail hot dogs. He states there was no raw food or under cooked food and no one else that was there was sick. He stated he woke up and started vomiting every hour for the entire day. he noted by Sunday he was feeling better and only had some abdominal pressure. He tried eating saltine crackers and by Sunday evening, he felt worse again. Sunday morning he felt better and was able to eat a little something. Patient stated throughout the day Sunday his symptoms returned and he went to urgent care, where he was sent to the ED. He states his last bowel movement was on Sunday. He states he had diarrhea on and has not had any bowel movement since. He denies any previous abdominal surgeries. He notes taking a supplement daily otherwise no medications routinely. He notes recently having a routine check up with his PCP on Sunday without any concerns. He denies having previous small bowel issues. CT scan ab/pel demonstrating small bowel dilation, bilateral pneumonia, trace free fluid in the pelvis. NG tube was placed on 12/22/24. KUB demonstrated tip in the stomach. Small bowel dilation may suggest bowel obstruction. [facility] Medical History no medical history Home Medications ?Medication ?Instructions ?Recorded ?Last Taken ?Type No Known/Unobtainable [No Known 11/03/13 Unknown History Home Medications] Allergy/AdvReac Type Severity Reaction Status Date / Time No Known Allergies Allergy Verified 11/01/24 15:21 Family History (Updated 11/01/24 @ 22:[address] Danny Byrd MD) Other Heart disease Family History no significant family his Surgical History no surgical history Social History Smoking Status: Former smoker ROS Constitutional Constitutional: Reports systems reviewed and no addt'l complaints, except as documented Eyes Eyes: Reports systems reviewed and no addt'l complaints, except as documented ENT HEENT: Reports systems reviewed and no addt'l complaints, except as documented Cardiovascular Cardiovascular: Reports systems reviewed and no addt'l complaints, except as documented Respiratory/Chest Respiratory/Chest: Reports systems reviewed and no addt'l complaints, except as documented Gastrointestinal Gastrointestinal: Reports systems reviewed and no addt'l complaints, except as documented Genitourinary Genitourinary: Reports systems reviewed and no addt'l complaints, except as documented Musculoskeletal Musculoskeletal: Reports systems reviewed and no addt'l complaints, except as documented Integumentary Integumentary: Reports systems reviewed and no addt'l complaints, except as documented Neurologic Neurologic: Reports systems reviewed and no addt'l complaints, except as documented Psychiatric Psychiatric: Reports systems reviewed and no addt'l complaints, except as documented Endocrine Endocrinology: Reports systems reviewed and no addt'l complaints, except as documented Hematologic/Lymphatic Hematologic/Lymphatic: Reports systems reviewed and no addt'l complaints, except as documented Allergic/Immunologic Allergic/Immunologic: Reports systems reviewed and no addt'l complaints, except as documented Physical Exam Const alert, oriented x3 and no apparent distress HEENT normocephalic and head/scalp atraumatic HEENT Narrative: NG tube intact Eyes PERRL Neck full ROM Lymph Lymphatic: no lymphadenopathy noted Resp normal respiratory effort and clear to auscultation bilaterally Cardio regular rate and regular rhythm GI GI Narrative: Abdomen- soft, nontender to palpation. Hypoactive bowel sounds. no CVA tenderness Back/Spine no CVA tenderness Extremity normal to inspection Skin no rashes or lesions noted Neuro no focal motor deficits and no sensory deficits noted Psych thought process normal and cooperative Lab / Micro Data 11/03/24 07:00 11/03/24 07:00 Labs: Laboratory Results - last 24 hr 11/03/24 07:00: WBC 8.6, RBC 4.67, Hgb 14.4, Hct 43.2, MCV 92.5, MCH 30.8, MCHC 33.3, RDW Std Deviation 43.5, RDW Coeff of [place]avon 12.9, Plt Count 258, MPV 10.7, Immature Gran % (Auto) 0.100, Neut % (Auto) 65.4, Lymph % (Auto) 20.8, [place] % (Auto) 12.8 H, Eos % (Auto) 0.6, Baso % (Auto) 0.3, Absolute Neuts (auto) 5.6, Absolute Lymphs (auto) 1.79, Nucleated RBC % 0, Sodium 139, Potassium 3.2 L, Chloride 105, Carbon Dioxide 26.0, Anion Gap 8, BUN 12, Creatinine 0.84, Estim Creat Clear Calc 140.52, Est GFR (MDRD) Af Amer 128, Est GFR (MDRD) Non-Af 106, BUN/Creatinine Ratio 14.3, Glucose 92, Calcium 8.5, Phosphorus 3.1, Magnesium 2.4, Total Bilirubin 0.80, AST 51 H, ALT 110 H, Alkaline Phosphatase 61, Lactate Dehydrogenase 172, Total Protein 7.1, Albumin 3.3, Globulin 3.8, Albumin/Globulin Ratio 0.9, TSH 5.370 H Imaging Radiology Impression Abdomen/Pelvis CT 11/02/24 16:01 IMPRESSION: (NOT LISTED IN ORDER OF SIGNIFICANCE) Small bowel obstruction visualized. No evidence for transition point. The degree of small bowel dilation is worse. Bilateral pneumonia. Trace free fluid in the pelvis. Other findings as above. Electronically Signed: Sree Ann MD at 17:25 EST , KUB X-Ray 11/02/24 17:04 IMPRESSION: There is a feeding tube/ nasogastric tube noted. The tip is in the region of the stomach. Small bowel dilation may suggest small bowel obstruction. Electronically Signed: Sree Ann MD at 18:15 EST , Charges/Coding Visit Charges Inpatient E&M: 01348 Init Hosp L2
--- NOTE | 2024-11-03 08:48 | RAD_ITS ---
HISTORY: Small bowel obstruction -- Gastrografin; KUB immed, 1H, and 3H TECHNIQUE: Gastrografin oral contrast was administered to the patient. Immediate, 1 hour, and 3 hour films obtained. 5 images. COMPARISON: Prior day. FINDINGS: Nasogastric tube tip at the level of the proximal duodenum. Multiple mildly dilated small bowel loops on the marketing operations analyst image. Injection of nasogastric tube with contrast entering multiple dilated small bowel loops in the abdomen. Contrast identified in the right colon on the last image, which is labeled 60 minutes. Scattered stool and air throughout the colon down to the level of the rectum. RAD/Small Bowel Series Only IMPRESSION: Partial small bowel obstruction with mildly dilated small bowel loops and contrast in the right colon on the 60 minute image. Electronically Signed: Carmen Byers MD at 11:35 EST ,
[2024-11-03] MEDS: Pantoprazole Sodium 40 MG in 0.9% Normal Saline (100mL MB+) 100 ML 330 MG IV (10:42)
--- NOTE | 2024-11-03 10:47 | NURSING ---
Ng tube clamped.
[2024-11-03 14:03] VITALS: BP 130/92; PULSE 110; RESP 16; TEMP 37.2; O2SAT 96
--- NOTE | 2024-11-03 15:21 | CASEMGMT ---
MEL MORALES Assessment Face to Face with patient for initial transition planning/care coordination assessment. MEL MORALES introduced self and role at [facility], pt voices understanding. Pt is A&Ox4 and is resting comfortably in bed and is calm. Care providers, pharmacy, and demographics verified. Admitting dx: Gastroenteritis LACE Strata: 1 PCP: Mark Johns Specialists: Denies Preferred Pharmacy: [facility] Insurance: [employer] Prescription Benefit: Yes LNOK: Diane Roach (W) Living Arrangements: Pt lives with his and adult step son in a bi-level home with 6 steps to the upper and lower portions ADLs/IADLs: Ind Transportation: Self, DME: BP Monitor. Denies further needs HHC/SNF: Denies history or needs Pt?s goal: Home Plan: Home no needs. 6-Click is 24. Pt states that he feels safe returning home with his once he is medically ready and denies further questions, concerns, or needs at this time. Pearl Nash RN, CM
[2024-11-03] MEDS: Ensure Clear 120 ML Liquid PO ×2 (16:28→21:03)
[2024-11-03] MEDS: Potassium Chloride Oral Tablet 20 MEQ 40 MEQ PO (16:29)
[2024-11-03 20:57] VITALS: BP 118/76; PULSE 71; RESP 16; TEMP 37; O2SAT 98
[2024-11-04 03:11] VITALS: BP 120/73; PULSE 73; RESP 16; TEMP 36.8; O2SAT 95
[2024-11-04] MEDS: 0.9% Saline Lock 10 ML Syringe IV (03:13)
[2024-11-04] MEDS: Enoxaparin 40 MG/0.4 ML Syringe SC (06:15)
[2024-11-04 06:24] LABS: ALB/GLOB Ratio 0.9 RATIO (0.9-2.4); AST(SGOT) 29 U/L (15-37); Alanine Aminotransfer ALT/SGPT 86 U/L (16-61); Albumin, Serum 3.1 g/dL (3.2-5.0); Alkaline Phosphatase 54 U/L (45-117); Anion Gap 3 (5-15); BUN 9 mg/dL (7-18); BUN/Creat Ratio 11.8 RATIO (10-20); Calcium,Total 8.8 mg/dL (8.5-10.1); Chloride 107 mmol/L (98-107); Creatinine, Serum 0.76 mg/dL (0.70-1.30); EST Glomerular Filtration Rate 118 mL/min (>60); Est Glom Filt Rate - Afr Amer 143 mL/min (>60); Estimated Creatinine Clearance 155.32 ml/min; Globulin 3.4 g/dL (2.2-4.2); Glucose 96 mg/dL (74-106); Potassium 3.3 mmol/L (3.5-5.1); Protein, Total 6.5 g/dL (6.4-8.2); Sodium Level 138 mmol/L (136-145)
--- NOTE | 2024-11-04 07:06 | PN.HOSP_ITS ---
Reason for Visit Reason for Visit: Diagnoses Acute gastroenteropathy due to [place] agent (11/03/24) Viral intestinal infection, unspecified (11/03/24) Noninfective gastroenteritis and colitis, unspecified (11/03/24) Unspecified intestinal obstruction, unspecified as to partial versus complete obstruction (11/03/24) Subjective Subjective Patient overnight with clinical continued improvement status post NG tube removal tolerating clears and now full liquids this a.m. with ongoing flatus and bowel movements. He denies any marked abdominal cramping or discomfort. He does state he still has some mild distention but this is markedly improved since initial ED presentation. Patient denies fevers, chills, nausea, emesis, chest pain or dyspnea. Objective Data Objective Data Vital Signs: Vital Signs Temp Pulse Resp BP Pulse Ox O2 Del Method 98.3 F 73 16 120/73 95 Room Air 11/04/24 03:11 11/04/24 03:11 11/04/24 03:11 11/04/24 03:11 11/04/24 03:11 11/04/24 03:11 Oxygen Delivery Method Room Air Weight: 233 lb 14.4 oz Body Mass Index (BMI) 32.5 Intake & Output: Intake and Output for Last 24 Hours 11/02/24 11/03/24 11/04/24 23:59 23:59 23:59 Intake Total 1342.5 / 1342.5 2516 / 2516 300 / 300 Output Total 1875 / 1875 550 / 550 Balance -532.5 / -532.5 1965 / 1965 300 / 300 Lab / Micro Data 11/03/24 07:00 11/04/24 05:23 Labs: Laboratory Results - last 24 hr 11/03/24 07:00: WBC 8.6, RBC 4.67, Hgb 14.4, Hct 43.2, MCV 92.5, MCH 30.8, MCHC 33.3, RDW Std Deviation 43.5, RDW Coeff of [place] 12.9, Plt Count 258, MPV 10.7, Immature Gran % (Auto) 0.100, Neut % (Auto) 65.4, Lymph % (Auto) 20.8, Richardson % (Auto) 12.8 H, Eos % (Auto) 0.6, Baso % (Auto) 0.3, Absolute Neuts (auto) 5.6, Absolute Lymphs (auto) 1.79, Nucleated RBC % 0, Sodium 139, Potassium 3.2 L, Chloride 105, Carbon Dioxide 26.0, Anion Gap 8, BUN 12, Creatinine 0.84, Estim Creat Clear Calc 140.52, Est GFR (MDRD) Af Amer 128, Est GFR (MDRD) Non-Af 106, BUN/Creatinine Ratio 14.3, Glucose 92, Calcium 8.5, Phosphorus 3.1, Magnesium 2.4, Total Bilirubin 0.80, AST 51 H, ALT 110 H, Alkaline Phosphatase 61, Lactate Dehydrogenase 172, Total Protein 7.1, Albumin 3.3, Globulin 3.8, Albumin/Globulin Ratio 0.9, TSH 5.370 H 11/04/24 05:23: Sodium 138, Potassium 3.3 L, Chloride 107, Carbon Dioxide 28.0, Anion Gap 3 L, BUN 9, Creatinine 0.76, Estim Creat Clear Calc 155.32, Est GFR (MDRD) Af Amer 143, Est GFR (MDRD) Non-Af 118, BUN/Creatinine Ratio 11.8, Glucose 96, Calcium 8.8, Total Bilirubin 0.50, AST 29, ALT 86 H, Alkaline Phosphatase 54, Total Protein 6.5, Albumin 3.1 L, Globulin 3.4, Albumin/Globulin Ratio 0.9 Micro: Microbiology 11/01/24 14:54 Urine, Clean Catch Urine Culture - Final Culture exhibits no growth. 11/03/24 10:35 Stool Enteric Bacteriology - Final Shiga Toxin 1 Norovirus Radiography Diagnostic Testing: Radiology Impression Small Bowel X-Ray 11/03/24 08:48 IMPRESSION: Partial small bowel obstruction with mildly dilated small bowel loops and contrast in the right colon on the 60 minute image. Electronically Signed: Carmen Byers MD at 11:35 EST , Physical Exam Narrative Physical Examination: General: Awake, alert, oriented x 3 and cooperative, seated upright in the MS bed, notes feeling improved since initial presentation and tolerating currently falls. Skin: Normal color, normal turgor, no icterus, no cyanosis except occasional stage ecchymoses, abrasion. HEENT: AT/NC, EOMI, PERRLA, MMM, status post NG tube. Lungs: CTA bilaterally, moderate effort, mild decrease BL bases, no rales, ronchi or wheezing. Heart: Regular rate and rhythm; no gallop, rub audible. Abdomen: Soft, obese, NTTP, ND, mildly hyperactive BS. Extremities: No cyanosis, clubbing, or edema. Neurological: Patient awake, alert, oriented as noted, cognitive function intact; pupils equally reactive to light and accommodation, cranial nerves grossly normal, moving all 4 extremities, no focal deficits, strength improving, mildly globally decreased. Psychiatric: Affect appears fatigued otherwise normal, no acute evidence of depressive or anxiety feelings. Assessment & Plan Assessment/Plan (1) Enteritis: (2) Viral gastroenteritis: (3) Infection due to Norovirus species: PLAN: Plan The patient is a 44 y/o M w/ PMHx: Obesity, Former tobacco use with otherwise no marked medical history who presents to the [facility] ED on 11/01/2024 with history of intractable nausea, emesis, abdominal pain and cramping not improving prompting eventual ED evaluation. #1. Acute terminal ileitis secondary to norovirus/ciguatoxin with complicating small bowel obstruction: ED evaluation with noted: CT concerning for possible developing small bowel obstruction, admitted to medical surgical floor, initial NG tube placed, surgery consulted, began to have flatus onset 11/03/2024, NG tube removed, started on a clear liquid diet, 11/03/2024 small bowel follow- through noted to be negative, likely plan advancement of diet per surgery discretion 11/04/2024. Once patient tolerating appropriate diet with plan discharge to home with surgery follow-up, potentially today per surgery note. #2. Hypokalemia: Admission K+ 3.3, magnesium recently checked and normal range, will give additional supplementation, repeat level in AM. #3. Mild transaminitis, unclear etiology: Suspect likely underlying fatty liver disease, per review of previous noted hyperlipidemia poorly controlled even back in 2013, 11/04/2024 T. bili 0.50, AST/LT 29/86, alk phos 54, encourage continued outpatient follow-up. #4. Obesity: Weight loss and lifestyle changes encouraged. #5. Former tobacco use: Encourage continued tobacco cessation. #6. DVT prophylaxis: Lovenox. Charges/Coding Visit Charges Inpatient E&M: 83057 Subs Hosp L2
[2024-11-04] MEDS: Potassium Chloride Oral Tablet 20 MEQ 40 MEQ PO (08:54)
[2024-11-04 08:58] VITALS: BP 118/76; PULSE 75; RESP 16; TEMP 36.6; O2SAT 97
[2024-11-04] MEDS: Ensure Clear 120 ML Liquid PO (12:15)
--- NOTE | 2024-11-04 13:28 | PCM.PN.SRG ---
Subjective Subjective Patient states he is doing better today especially since his NG tube is removed yesterday. He has tolerated clear liquid diet and has now been advanced to full liquid diet which she seems to be tolerating as well. He still states that his abdomen is still little bloated but feels much improved. He is still passing flatus and bowel movements Objective Data Objective Data Vital Signs: Vital Signs Temp Pulse Resp BP Pulse Ox O2 Del Method 97.9 F 75 16 118/76 97 Room Air 11/04/24 08:58 11/04/24 08:58 11/04/24 08:58 11/04/24 08:58 11/04/24 08:58 11/04/24 08:58 Oxygen Delivery Method Room Air Weight: 233 lb 14.4 oz Body Mass Index (BMI) 32.5 Intake & Output: Intake and Output for Last 24 Hours 11/02/24 11/03/24 11/04/24 23:59 23:59 23:59 Intake Total 1342.5 / 1342.5 2516 / 2516 900 / 900 Output Total 1875 / 1875 550 / 550 Balance -532.5 / -532.5 1965 / 1965 900 / 900 Lab / Micro Data 11/03/24 07:00 11/04/24 05:23 Labs: Laboratory Results - last 24 hr 11/04/24 05:23: Sodium 138, Potassium 3.3 L, Chloride 107, Carbon Dioxide 28.0, Anion Gap 3 L, BUN 9, Creatinine 0.76, Estim Creat Clear Calc 155.32, Est GFR (MDRD) Af Amer 143, Est GFR (MDRD) Non-Af 118, BUN/Creatinine Ratio 11.8, Glucose 96, Calcium 8.8, Total Bilirubin 0.50, AST 29, ALT 86 H, Alkaline Phosphatase 54, Total Protein 6.5, Albumin 3.1 L, Globulin 3.4, Albumin/Globulin Ratio 0.9 Micro: Microbiology 11/01/24 14:54 Urine, Clean Catch Urine Culture - Final Culture exhibits no growth. 11/03/24 10:35 Stool Enteric Bacteriology - Final Shiga Toxin 1 Norovirus Physical Exam Narrative He is alert and oriented x 3. He is in no acute distress. Abdomen is soft and mildly distended. Minimal tenderness to palpation. No rebound or guarding. Assessment & Plan Assessment/Plan (1) Infection due to Norovirus species: PLAN: The patient is a 44-year-old male with an ileus secondary to GI virus/norovirus. Clinically he seems to be improving from the associated ileus. Would recommend keeping him at full liquid diet for couple of days prior to advancing. I would be okay for discharge either later today or tomorrow. I stated that even once he is home I would still tend to favor soft foods until his GI tract has been given the opportunity to fully recover. He is agreeable this plan. Charges/Coding Visit Charges Inpatient E&M: 18891 Subs Hosp L2
--- NOTE | 2024-11-04 14:26 | DS.PCM_ITS ---
Providers Date of Admission: 11/03/24 Date of Discharge: 11/04/24 Primary Care Physician: Dr. Mark Johns MD Consultations 11/02/24 22:00 Consult: General Surgery Routine Consulting Provider: Walter Mckeon Reason for Consult: Mesenteric adenitis with florencia-splenic mass and SBO EMERGENT Consult: No MD Notified: Yes Date Notified: 11/02/24 Time Notified: 22:00 Method of Notification: Verbal Reason For Visit: GASTROENTERITIS Diagnosis Discharge Diagnosis (1) Enteritis: Status: Acute Code(s): K52.9 - Noninfective gastroenteritis and colitis, unspecified (2) Viral gastroenteritis: Status: Acute Code(s): A08.4 - Viral intestinal infection, unspecified (3) Infection due to Norovirus species: Status: Acute Code(s): A08.11 - Acute gastroenteropathy due to [place] agent Plan: DISCHARGE DIAGNOSES: #1. Acute terminal ileitis secondary to norovirus/ciguatoxin with complicating small bowel obstruction #2. Hypokalemia, secondary to GI losses, resolved #3. Mild transaminitis, unclear etiology, Suspect likely underlying fatty liver disease #4. Obesity #5. Former tobacco use Medications at Discharge Home Medications acetaminophen 325 mg tablet 650 mg (2 x 325 mg) PO Q6H PRN PRN Pain 1-10 Or Fever #0 tabs 11/04/24 Hospital Course Operations None Procedures EKG Summary of Care Provided Minutes Spent on Discharge: 35 Hospital Course: The patient is a 44 y/o M w/ PMHx: Obesity, Former tobacco use with otherwise no marked medical history who presented to the [facility] ED on 11/01/2024 with history of intractable nausea, emesis, abdominal pain and cramping not improving prompting eventual ED evaluation. ED evaluation with noted CT concerning for possible developing small bowel obstruction, admitted to medical surgical floor stool study and viral evaluation with evidence of acute norovirus illness, initially NG tube placed, surgery consulted, began to have flatus onset 11/03/2024, NG tube removed, started on a clear liquid diet, 11/03/2024 small bowel follow- through noted to be negative. 11/04/2024 patient maintained on full liquid diet with re-evaluation by general surgery and given patient clinically improved and stable amenable to discharge to home on continue full liquids for at least the next 2 to 3 days with diet transition following with limitation to at least soft foods until completely resolved. During the admission patient with hypokalemia with supplementation with eventual normalization. Patient also with mild transaminitis of unclear etiology although suspected secondary to fatty liver disease. Recommend follow-up with primary care physician within 3 to 5 days for repeat CMP to assess potassium and liver function studies. Given also history of at least hyperlipidemia noted back as far as 2013 recommended follow-up lipid panel as well once patient completely clinically improved potentially at follow- up annual visit. Given patient improvement plan discharge to home with follow- up with primary care physician and also follow-up with general surgery with earlier evaluation if concerns arise. Weight / BMI Weight Weight: 233 lb 14.4 oz Body Mass Index (BMI) 32.5 ABG / Lab / Microbiology Data 11/03/24 07:00 11/04/24 05:23 Laboratory: Laboratory Results - last 24 hr 11/04/24 05:23: Sodium 138, Potassium 3.3 L, Chloride 107, Carbon Dioxide 28.0, Anion Gap 3 L, BUN 9, Creatinine 0.76, Estim Creat Clear Calc 155.32, Est GFR (MDRD) Af Amer 143, Est GFR (MDRD) Non-Af 118, BUN/Creatinine Ratio 11.8, Glucose 96, Calcium 8.8, Total Bilirubin 0.50, AST 29, ALT 86 H, Alkaline Phosphatase 54, Total Protein 6.5, Albumin 3.1 L, Globulin 3.4, Albumin/Globulin Ratio 0.9 Microbiology: Microbiology 11/01/24 14:54 Urine, Clean Catch Urine Culture - Final Culture exhibits no growth. 11/03/24 10:35 Stool Enteric Bacteriology - Final Shiga Toxin 1 Norovirus D/C Instructions Discharge Diet: - (Continue full liquid diet x 2-3 additional days then may transition but maintain soft foods until completely resolved per Surgery request.) May resume sexual activity in: 10-14 days Weight Bearing Status: Weight bearing as tolerated Call your doctor if you observe: Fever of 101 or Higher, Inability to have a bowel movement, Shortness of breath, Dizziness, Swelling in the ankles, Chest pain, Increased palpitations (irregular heartbeat), Calf discomfort and Uncontrolled pain DC O2, CPAP, BIPAP Needs Home O2 Discharge instructions: No Meaningful Use Info Meaningful Use Meaningful Use Diagnoses (Choose all that apply): None applicable Ischemic Stroke Statin Dosing Therapy Reference: STATIN DOSE THERAPY REFERENCE: * Patients > 75 years receive moderate or high dose statin therapy. * Patients 75 years or YOUNGER should receive HIGH intensity statin dose unless contraindicated. You will be required to document reason for non-treatment if statin daily dose does not meet guidelines. HIGH DOSE STATIN THERAPY DAILY Atorvastatin > than or = to 40 mg Rosuvastatin > than or = to 20 mg Amlodipine + Atorvastatin > than or = to 2.5/40 mg Ezetimibe + Simvastatin 10/80 mg Simvastatin 80mg Discharge Plan Admission Admit Date/Time: 11/03/24 08:13 Primary Reason for Your Visit: Terminal ileitis w/ nnorovirus/ciguatoxin, SBO, Elevated LFTs, Hypokalemia Attending Provider: Cheryl Mixon Primary Care Provider: Mark Johns Consulting Providers: Danny Byrd; Walter Mckeon; Courtney Herring Instructions Additional Instructions / Restrictions: ADDITIONAL DISCHARGE INSTRUCTIONS/RECOMMENDATIONS: #1. Acute terminal ileitis secondary to norovirus/ciguatoxin with complicating small bowel obstruction: --Per surgery recommendation please continue full liquid diet x 2-3 additional days and then may advance following as long as no abdominal pain, cramping, distention, nausea or emesis however once you do transition they requested preference of soft foods until complete resolution of illness. -- Please follow-up with surgery in 2 to 4 weeks to review presentation and assure complete resolution, may call the office earlier if concerns arise. -- Please have follow-up basic metabolic panel with your primary care physician to ensure that electrolytes remained resolved/normal in 3 to 5 days at follow- up. --During admission you had mild elevation of your liver function enzymes of unclear etiology, possibly secondary to underlying fatty liver disease with previous noted history of poorly controlled lipids even back as far as 2013. We recommend a repeat hepatic profile at follow-up within 3 to 5 days and lipid panel outpatient with your primary care physician at your annual follow-up and specifically not until you have completely resolved your current acute illness. -- Please follow-up with primary care physician within 3 to 5 days. Discharge Orders/Prescriptions Prescriptions: New acetaminophen 325 mg Tablet 650 mg PO Q6H PRN PRN (Reason: Pain 1-10 Or Fever) Qty: 0 0RF Referrals / Follow Up: Mark Johns MD [Primary Care Provider] - (Please follow-up within 3-5 days to review admission and also have repeat BMP to assure electrolytes remain appropriate.) Walter Mckeon MD [Med Staff - Active Staff] - (Follow-up within 2-4 weeks or earlier if concerns arise.) Disposition Disposition (needs filled in before D/C Order can be placed): Home, Self Care Charges/Coding Visit Charges Inpatient E&M: 88992 Disch Hosp >30min
[2024-11-04 14:49] VITALS: BP 118/83; PULSE 85; RESP 18; TEMP 36.8; O2SAT 96
== END 2024-11-04 15:30 | disposition home or self-care (01) | DRG 386 ==
LOC: ED 21:31 → MS3 11-02 05:32
PROVIDERS: Internal Medicine; Admitting Provider Family Medicine; Emergency Provider Emergency Medicine; PCP Family Medicine; Visit Provider Family Medicine
DX: K50.012 Crohn's disease of small intestine with intestinal obstruction (principal); A08.11 Acute gastroenteropathy due to Norwalk agent; K76.0 Fatty (change of) liver, not elsewhere classified; Z68.32 Body mass index [BMI] 32.0-32.9, adult; E87.6 Hypokalemia; R74.01 Elevation of levels of liver transaminase levels; E66.9 Obesity, unspecified; Z87.891 Personal history of nicotine dependence
CPT/HCPCS: 36415; 74018; 74176; 74177; 74250; 80048; 80053; 81001; 83615; 83735; 84100; 84443; 85025; 87086; 87506; 94668; 97802; 99284; Q9967; A4216; J2405

== ENCOUNTER 2025-10-21 19:16 | Emergency (ER) | payer OTHER, SELFPAY ==
[2025-10-21] VITALS (7 sets, daily range): BP systolic 109–128; BP diastolic 60–85; PULSE 122–151; RESP 16–20; TEMP 37.2–38.7; O2SAT 94–99; BMI 43.9
--- NOTE | 2025-10-21 20:02 | EX.ED.DYSGE1 ---
HPI History of Present Illness Chief Complaint: Fever PFSH PFSH Medical History no medical history Home Medications ?Medication ?Instructions ?Recorded ?Last Taken ?Type acetaminophen 325 mg tablet 650 mg (2 x 325 mg) PO Q6H PRN PRN 11/04/24 Unknown Rx Pain 1-10 Or Fever #0 tabs doxycycline hyclate 100 mg capsule 100 mg PO BID 7 days #14 caps 10/21/25 Unknown Rx ondansetron 4 mg disintegrating 4 mg PO Q8H PRN PRN Nausea #10 tabs 10/21/25 Unknown Rx tablet Allergy/AdvReac Type Severity Reaction Status Date / Time No Known Allergies Allergy Verified 10/21/25 19:19 Family History Other Heart disease Surgical History no surgical history Social History (Updated 10/21/25 @ 20:34 by Trinh Germain) household members: spouse current occupational status: employed Smoking Status: Former smoker EXAM Physical Exam Const Vital Signs: 10/21/25 19:17 10/21/25 19:58 10/21/25 20:20 Temperature 101.7 F H Temperature Source Oral Pulse Rate 151 H 135 H 134 H Respiratory Rate 16 18 20 H Respiratory Effort Respiratory Pattern Blood Pressure 123/85 H 121/76 H 128/76 H Blood Pressure Mean 97 91 93 Pulse Ox 99 94 94 Oxygen Delivery Method Room Air Room Air 10/21/25 20:33 10/21/25 21:00 Temperature Temperature Source Pulse Rate 130 H Respiratory Rate 18 Respiratory Effort Normal Non-Labored Respiratory Pattern Normal Blood Pressure 119/70 Blood Pressure Mean 86 Pulse Ox 94 Oxygen Delivery Method Sepsis Attestation Date exam was performed: 10/21/25 Time exam was performed: 20:21 Possible Source of Sepsis: Unknown MDM MDM MDM Narrative Medical decision making narrative: HISTORY OF PRESENT ILLNESS: Chief complaint: Fever 45-year-old male presents concern for fever, elevated heart rate vomiting and sore throat. Notes this began today. He further states he has been sick since Sunday (10/18/2025). No sick contacts. Denies headache, chest pain but does note shortness of breath and cough. No sore throat. Notes 1 episode of nonbloody nonbilious vomitus. Denies abdominal pain. Denies urinary complaints. REVIEW OF SYSTEMS: Pertinent positives: As per HPI Pertinent negatives: As per HPI PHYSICAL EXAM: Nursing triage notes reviewed, Vital signs reviewed Constitutional: please see [facility] HENT: MMM, slightly erythematous tonsils-no exudates, uvular deviation, pooling of secretions, trismus or other signs of severe HEENT swelling. No submandibular edema. Eyes: Pupils equal round and reactive to light, Extraocular muscles intact Neck: No stridor, no JVD, full neck ROM Lungs: Clear to auscultation, No wheezing or rales. No increased work of breathing, no conversational dyspnea, no accessory muscle use, no nasal flaring. No respiratory distress noted Heart: Regular rate and rhythm, No murmurs, No rubs and No gallops, 2+ distal pulses (radial, femoral, posterior tibial) in all extremities Abdomen: Soft, there is no tenderness, rigidity, rebound or guarding, no obvious peritoneal signs, no palpable pulsatile abdominal masses, no auscultated abdominal bruit : No CVAT Extremities: No edema Neuro: No new focal neurological deficits, cranial nerves II through XII intact, 5/5 strength in all present extremities. Intact sensation to light touch in all present extremities, 2+ reflexes bilateral patella tendons. Skin: No rash or lesions noted MEDICAL DECISION MAKING: Chief Complaint: please see [facility] External records reviewed: Reviewed prior ED visits Factors affecting care: none Social determinants of health: none History obtained from others: none Consults: none [facility] Narrative: The patient was initially tachycardic and heart rate 151, febrile temperature 101.7 otherwise saturating well on room air. Otherwise hemodynamically stable with a blood pressure 123/85. Exam grossly unremarkable with no obvious focus of infection. Lungs were clear. I considered the following differential diagnosis: Viral URI, bacterial pneumonia, strep pharyngitis I obtained a broad lab and imaging work to further determine if the patient was suffering from a life-threatening etiology. I initially treated the patient with 1 g of Tylenol, 15 mg IV Toradol, 4 mg IV Zofran and 1 L normal saline as well as Zofran for symptomatic control ALL IMAGES (IF OBTAINED) HAVE BEEN PERSONALLY REVIEWED AND INTERPRETED BY MYSELF. EKG shows sinus tachycardia rate of 135, normal axis, normal intervals, no obvious STEMI. No sign of A-fib, Brugada, ARVD or WPW CBC leukocytosis suggestive of this information, no anemia thrombocytopenia BMP without evidence of significant electrolyte abnormalities, no anion gap, no acute kidney injury. Lactate is wnl indicating no end-organ hypoperfusion and/or hypoxia. LFTs show no evidence of hepatobiliary pathology. Urinalysis shows no evidence of urinary inflammation suggestive of UTI Strep swab negative COVID/RSV/flu negative Patient's initial evaluation showed no definitive site infection but given leukocytosis did obtain CT scan abdomen pelvis. CT scan of the pelvis showed no evidence of obvious intra-abdominal faction or severe pathology but did show possible bibasilar infiltrates concerning for pneumonia. On reevaluation his heart rate improved to 101. Given concern for infiltrates will give oral antibiotics and treat as community-acquired pneumonia. Strict return precaution were discussed. Work note given. The patient and/or family, caregivers express understanding. The patient and/or family, caregivers agrees with the plan. Shared decision making: I will have a discussion with the patient and or visitors regarding risk/benefits of further testing or admission. They will be made aware of of the risk/benefits inherent in this decision they will be given the opportunity to voice understanding. Total critical care time today provided was at least 0 minutes. This excludes separately billable procedures. Critical care time (if documented) is secondary to the patient having high probability of clinically significant/life threatening deterioration in the patient's condition which required my urgent intervention. Impression: 1. Fever 2. Tachycardia 3. Community-acquired pneumonia Dispo: Discharge home This note was generated with [employer] dictation software. It may contain incorrect words, spelling, and punctuation that were not noted in review of the chart prior to signing. Lab Data Labs: Laboratory Results - last 24 hr 10/21/25 10/21/25 20:14 22:05 WBC 18.9 H RBC 4.89 Hgb 14.9 Hct 45.6 MCV 93.3 MCH 30.5 MCHC 32.7 RDW Std Deviation 44.6 H RDW Coeff of [place] 13.1 Plt Count 296 MPV 10.3 Immature Gran % (Auto) 0.600 Neut % (Auto) 86.4 H Lymph % (Auto) 6.2 L Bledsoe % (Auto) 6.3 Eos % (Auto) 0.2 Baso % (Auto) 0.3 Absolute Neuts (auto) 16.4 H Absolute Lymphs (auto) 1.18 Nucleated RBC % 0 Sodium 136 Potassium 4.1 Chloride 100 Carbon Dioxide 22.4 Anion Gap 14 BUN 11 Creatinine 0.92 Estim Creat Clear Calc 148.44 Est GFR (MDRD) Non-Af 105 BUN/Creatinine Ratio 11.6 Glucose 125 H Lactic Acid 1.8 Calcium 9.5 Total Bilirubin 0.74 AST 18 ALT 17 Alkaline Phosphatase 81 Total Protein 8.0 Albumin 4.6 Globulin 3.4 Albumin/Globulin Ratio 1.3 Urine Color Yellow Urine Clarity Clear Urine pH 6.0 Ur Specific [place] 1.010 Urine Protein 15 H Urine Glucose (UA) Normal Urine Ketones Negative Urine Occult Blood Negative Urine Nitrite Negative Urine Bilirubin Negative Urine Urobilinogen Normal Ur Leukocyte Esterase Negative Urine RBC 0-5 SEEN Urine WBC 0-5 SEEN Ur Squamous Epith Cells 0 SEEN Urine Bacteria 0 SEEN Urine Mucus 0 SEEN Radiography Diagnostic Testing: Clinical Impression(s) from Imaging Studies Chest X-Ray 10/21/25 20:50 IMPRESSION: Shallow inspiration. No definite acute cardiopulmonary disease. Reading Location: [facility] Abdomen/Pelvis CT 10/21/25 22:15 IMPRESSION: No CT evidence of an acute abdominal or pelvic process. Bibasilar pulmonary infiltrates, more pronounced on the left. Similar findings are noted on the previous study. Reading Location: [facility] Discharge Plan Triage Chief Complaint: Fever ED Provider: Graham Melara Dx/Rx/DC Orders Clinical Impression: Community acquired bacterial pneumonia Instructions: ED Pneumonia (Adult) Prescriptions: New doxycycline hyclate 100 mg capsule 100 mg PO BID 7 Days Qty: 14 0RF ondansetron 4 mg tablet,disintegrating 4 mg PO Q8H PRN PRN (Reason: Nausea) Qty: 10 0RF No Action acetaminophen 325 mg Tablet 650 mg PO Q6H PRN PRN (Reason: Pain 1-10 Or Fever) Qty: 0 0RF Stand Alone Forms: ED Work / School Excuse Primary Care Provider: Mark Johns Referrals: Mark Johns MD [Primary Care Provider, Family Practice] Activity Restrictions/Additional Instructions: Thank you for trusting us with your care today! Please take Tylenol (2 pills, 650 mg), ibuprofen (2 pills, 400 mg) every 6 hours as needed for pain and fever control. Please take antibiotic as prescribed until course complete. Please take Zofran as needed for nausea vomiting total at home. Please return to the emergency department if your symptoms change or worsen. Please follow with your primary care physician for further outpatient evaluation and management. Print Language: Hebrew Disposition Disposition: Home, Self Care
--- NOTE | 2025-10-21 20:09 | EKG12_ITS ---
Test Reason : FEVER Blood Pressure : */* mmHG Vent. Rate : 135 BPM Atrial Rate : 135 BPM P-R Int : 146 ms QRS Dur : 94 ms QT Int : 280 ms P-R-T Axes : 52 44 17 degrees QTcB Int : 420 ms Sinus tachycardia Possible Left atrial enlargement Nonspecific ST and T wave abnormality Abnormal ECG Confirmed by CASPER DAVIS, ARA ([id number]), loan expeditor DAVID SOLIS ([id number]) on 10/26/2025 6:23:24 AM Referred By: Confirmed By: ARA SHIRLEY MD
[2025-10-21] MEDS: 0.9% Normal Saline (1000mL) 1,000 ML 1000 ML IV (20:22)
[2025-10-21 20:36] LABS: Hematocrit 45.6 % (40-54); Hemoglobin 14.9 g/dL (13.0-16.5); Immature Granulocytes Count 0.110 X10^3/uL (0.0-0.0); Mean Corp Hgb Conc 32.7 g/dL (32-36); Mean Corpuscular Volume 93.3 fL (80-94); Mean Platelet Vol. 10.3 fl (6.2-12.0); NRBC Flagged by Analyzer 0 % (0-5); Platelet Count 296 K/mm3 (150-450); RBC Distribution Width CV 13.1 % (11.6-14.6); RBC Distribution Width SD 44.6 fl (35.1-43.9); Red Blood Count 4.89 M/mm3 (4.6-6.2); White Blood Count 18.9 K/mm3 (4.4-11.0)
[2025-10-21 20:45] LABS: AST(SGOT) 18 U/L (<=37); Alanine Aminotransfer ALT/SGPT 17 U/L (<=46); Albumin, Serum 4.6 g/dL (3.5-5.0); Alkaline Phosphatase 81 U/L (40-129); Anion Gap 14 (5-15); BUN 11 mg/dL (4-19); BUN/Creat Ratio 11.6 RATIO (10-20); Calcium,Total 9.5 mg/dL (7.6-11.0); Carbon Dioxide 22.4 mmol/L (21.0-32.0); Chloride 100 mmol/L (98-108); Estimated Creatinine Clearance 148.44 ml/min (50-250); Globulin 3.4 g/dL (2.2-4.2); Glucose 125 mg/dL (70-99); Potassium 4.1 mmol/L (3.3-5.1)
--- NOTE | 2025-10-21 20:50 | RAD_ITS ---
PROCEDURE: CHEST 1 VIEW (PORTABLE) 10/21/2025 REASON FOR EXAM: SHORTNESS OF BREATH, COUGH TECHNIQUE: Frontal view of the chest. COMPARISON: None. FINDINGS: Suboptimal inspiration with associated bronchovascular crowding, and mild bibasilar streaky subsegmental atelectasis. No definite focal consolidation, pneumothorax or sizable pleural effusion. Cardiac silhouette is mildly prominent, likely normal in size given technique. No significant osseous abnormality. RAD/Chest 1 View (Portable) IMPRESSION: Shallow inspiration. No definite acute cardiopulmonary disease. Reading Location: [id number]
--- OUTSIDE RECORDS SUMMARY | 2025-10-21 21:00 | XMS RPT_ITS | CCD ---
Author Organization [facility] Care Team Providers Care Work Force Advisor Name Role Phone Mark Cantu MD Primary Care Provider [phone] Ran CHRISTENSEN MD, Frank A Primary Care Provider Ifrah gabbiilaMark Tomlinson MD Primary Care Provider [phone] Sudhakar SPRING MAKER.Karissa GARZA Unavailable Mary Pruitt PA-C Unavailable Cecily Byrds F Attending Unavailable Kotsonis, Danny F Consulting Unavailable Mark Cantu Primary Care Unavailable Kotsonis, Danny F Admitting Unavailable Kotsonis, Danny F Consulting Unavailable AlondraMark Primary Care Unavailable Courtney Herring Attending Unavailable Kotsonis, Danny F Admitting Unavailable Courtney Herring Consulting Unavailable Kotsonis, Danny F Consulting Unavailable Oral Cheryl L Referring Unavailable Payal James Attending Unavailable Mark Cantu Primary Care Unavailable Kotsonis, Danny F Admitting Unavailable Ivan Mckeonen A Consulting Unavailable Courtney Herring Consulting Unavailable Courtney Herring Attending Unavailable Mike Walter A Attending Unavailable White, Cheryl L Consulting Unavailable Kotsonis, Danny F Consulting Unavailable Oral Cheryl L Attending Unavailable [facility] Unavailable Kotsonis, Danny F Admitting Unavailable Mike, Walter A Consulting Unavailable Courtney Herring Consulting Unavailable Cheryl Mixon L Attending Unavailable Sudhakar SPRING MAKER.Karissa GARZA Unavailable Mary Pruitt PA-C Unavailable MARK CANTU Primary Care Unavailable KARISSA DE LA FUENTE Attending Unavailable SELF Referring Unavailable ALONDRA, MARK A Primary Care Unavailable MARK CANTU Primary Care Unavailable MARK CANTU Referring Unavailable MARK CANTU Primary Care Unavailable MARK CANTU Attending Unavailable MARK DOIMNGO Attending Unavailable MARK CANTU Primary Care Unavailable MARK CANTU Primary Care Unavailable MARK CANTU Attending Unavailable MARK CANTU Primary Care Unavailable MARK CANTU Referring Unavailable MARK CANTU Primary Care Unavailable KARISSA DE LA FUENTE Referring Unavailable Allergies Allergy Classification Reported Allergen(s) Allergy Type Date of Onset Reaction(s) Facility (20 sources) Seasonal allergy; Translations: [SEASONAL ALLERGIES] Allergy to substance 4 Other: See Comments [facility] Work Phone: Medications Current Medications Medication Drug Class(es) Dates Sig (Normalized) Sig (Original) doxycycline hyclate 100 mg oral tablet (1 source) Tetracycline-class Drug Start: 11-11-2023 End: 11-18-2023 take 1 tablet by mouth twice daily doxycycline (VIBRA-TABS) 100 mg tablet Indications: Rhinosinusitis Take 1 tablet by mouth two times a day for 7 days. 14 tablet 0 11/11/2023 11/18/2023 Active Comment on above: Take 1 tablet by brando th two times a day for 7 days. fluticasone propionate 0.05 mg/actuat metered dose nasal spray (20 sources) Corticosteroid Start: 08-23-2020 End: 08-28-2022 take 2 spray(s) by mouth once daily fluticasone (FLONASE) 50 mcg/actuation nasal spray Use 2 Sprays in each nostril once daily. Rinse mouth after use. 1 Each 5 08/28/2022 Active Comment on above: Use 2 Sprays in each nostril once daily. Rinse mouth after use. loratadine 10 mg oral tablet (1 source) Start: 11-09-2023 End: 12-09-2023 take 1 tablet by mouth once daily loratadine (CLARITIN) 10 mg tablet Take 1 tablet by mouth once daily. 30 tablet 0 11/09/2023 12/09/2023 Active Comment on above: Take 1 tablet by brando th once daily. oxymetazoline hydrochloride 0.5 mg/ml nasal spray (1 source) Start: 11-09-2023 End: 11-14-2023 oxymetazoline (AFRIN, OXYMETAZOLINE,) 0.05 % nasal spray Use 2 Sprays in each nostril two times a day for 5 days. 22 mL 0 11/09/2023 11/14/2023 Active Comment on above: Use 2 Sprays in each nostril two times a day for 5 days. sod otpqz-bciuwy-hsygeo bottle (NEILMED SINUS RINSE COMPLETE) pkdv (11 sources) Start: 11-09-2023 sod bbluc-volceg-msdtwk bottle (NEILMED SINUS RINSE COMPLETE) pkdv Dissolve one packet or sachet in 8 oz (240 mL) or lukewarm distilled, previously boiled or bottled water. Use as directed per package instructions 30 Each 11/09/2023 Active Start: 11-09-2023 sod chlor-bica rb-squeez bottle (NEILMED SINUS RINSE COMPLETE) pkdv Dissolve one packet or sachet in 8 oz (240 mL) or lukewarm distilled, previously boiled or bottled water. Use as directed per package instructions 30 Each 0 11/09/2023 Active Comment on above: Dissolve one packet or sachet in 8 oz (240 mL) or lukewarm distilled, previously boiled or bottled water. Use as directed per package instructions Completed/Discontinued Medications Medication Drug Class(es) Dates Sig (Normalized) Sig (Original) cyclobenzaprine hydrochloride 10 mg oral tablet (1 source) Muscle Relaxant Start: 06-15-2020 End: 08-19-2021 take 1 tablet by mouth three times daily as needed for muscle spasms cyclobenzaprine (FLEXERIL) 10 mg tablet Indications: Rib pain Take 1 tablet by mouth three times daily as needed for Muscle Spasm. 20 tablet 1 06/15/2020 08/19/2021 Discontinued mupirocin 0.02 mg/mg topical ointment (4 sources) RNA Synthetase Inhibitor Antibacterial Start: 02-01-2023 End: 08-28-2023 mupirocin (BACTROBAN) 2 % ointment Apply to affected area three times daily. 15 g 0 02/01/2023 08/28/2023 Discontinued Comment on above: Apply to affected ar ea three times daily. naproxen 500 mg oral tablet (1 source) Nonsteroidal Anti-inflammatory Drug Start: 12-10-2020 End: 08-19-2021 take 1 tablet by mouth twice daily as needed for pain naproxen (NAPROSYN) 500 mg tablet Indications: Acute pain of right knee Take 1 tablet by mouth twice daily as needed (for pain/inflammation). Take with food. 28 tablet 12/10/2020 08/19/2021 Discontinued Problems Active Problems Problem Classification Problem Date Documented Date Episodic/Chronic Abdominal pain (2 sources) Inguinal pain; Translations: [Lower abdominal pain, unspecified] Episodic Disorders of lipid metabolism (13 sources) Mixed hyperlipidemia; Translations: [Mixed hyperlipidemia] Onset: 4 10-28-2024 Chronic Intestinal infection (2 sources) Viral intestinal infection, unspecified; Translations: [Acute gastroenteropathy due to Nahma agent] Onset: 5 Episodic Malaise and fatigue (1 source) Fatigue; Translations: [Other fatigue] Episodic Noninfectious gastroenteritis (1 source) Noninfective gastroenteritis and colitis, unspecified; Translations: [Noninfective gastroenteritis and colitis, unspecified] Onset: 5 Episodic Other ear and sense organ disorders (1 source) Excessive cerumen in ear canal ; Translations: [Impacted cerumen, left ear] 08-28-2023 Episodic Other ear and sense organ disorders (1 source) Otalgia, right ear; Translations: [Otalgia, right] Onset: 5 Episodic Other non-traumatic joint disorders (3 sources) Acute ankle pain; Translations: [Pain in right ankle and joints of right foot] 07-06-2023 Episodic Other non-traumatic joint disorders (1 source) Pain in right knee; Translations: [Pain in joint, lower leg] 12-10-2020 Episodic Other nutritional; endocrine; and metabolic disorders (20 sources) Obese class I; Translations: [Obesity, unspecified] Onset: 9 08-19-2021 Chronic Other upper respiratory disease (20 sources) Allergic rhinitis due to pollen; Translations: [Allergic rhinitis due to pollen] Onset: 8 08-19-2021 Chronic Other upper respiratory disease (1 source) Disorder of the nose; Translations: [Other specified disorders of nose and nasal sinuses] Episodic Other upper respiratory infections (1 source) Chronic sinusitis, unspecified; Translations: [Unspecified sinusitis (chronic)] 11-11-2023 Chronic Unclassified (1 source) Obesity, Class I, BMI 30-34.9; Translations: [Obesity, Class I, BMI 30-34.9] Onset: Past or Other Problems Problem Classification Problem Date Documented Da te Episodic/Chronic Fluid and electrolyte disorders (1 source) Hypokalemia; Translations: [Hypokalemia] Onset: 11-10-2024 Episodic Intestinal obstruction without hernia (3 sources) Unspecified intestinal obstruction, unspecified as to partial versus complete obstruction; Translations: [Unspecified intestinal obstruction, unspecified as to partial versus complete obstruction] Onset: 11-10-2024 Episodic Other connective tissue disease (13 sources) Pain in calf; Translations: [Pain in unspecified lower leg] Onset: 09-03-2014 Resolved: 08-20-2018 08-20-2018 Episodic Other screening for suspected conditions (not mental disorders or infectious disease) (20 sources) Patient encounter status; Translations: [Encounter for screening for diabetes mellitus] Onset: 08-15-2021 08-15-2021 Episodic Screening and history of mental health and substance abuse codes (20 sources) Ex-smoker; Translations: [Personal history of nicotine dependence] Onset: 08-19-2021 08-19-2021 Episodic Results Test Name Value Interpretation Reference Range Facility [facility] 09-03-2025 CNOV Office Visit (WOUCA) MG ROACH ([id number]) 1980 M Date Time Provider Department 09/03/25 6:00 PM MARK DOMINGO During your visit today, we recorded the following information about you: Temperature Pulse Respiration Blood pressure 101.4 degrees 110/minute 18/minute 131/87 Weight 105 kg Mark Domingo APRN.CNP 09/03/2025 6:48 PM Signed [facility] Subjective Mg Roach is a 45 year old male. Patient presents with: Head Congestion: Fever, sinus pressure, R ear pain x2 days HPI Nontoxic-appearing 45-year-old male presents urgent care chief plaint cough sinus pressure right ear pain. Duration of symptoms 2 days. Associate symptoms cough sinus pressure right ear pain fever body aches chills fatigue. Symptoms started abruptly. OTC medication Sudafed PE. Unknown sick contacts. Does work in the public. Denies any productive cough chest pain shortness of breath pleuritic pain or hemoptysis. No loss hearing otorrhea. Past medical history prescription medications allergies reviewed. Review of Systems Constitutional: Positive for chills, fatigue and fever. Negative for diaphoresis. HENT: Positive for congestion, ear pain, sinus pressure and sinus pain. Negative for ear discharge, rhinorrhea, sneezing and sore throat. Eyes: Negative for pain, discharge, redness, itching and visual disturbance. Respiratory: Negative for cough, chest tightness, shortness of breath and wheezing. Cardiovascular: Negative for chest pain. Gastrointestinal: Negative for abdominal pain, constipation, diarrhea, nausea and vomiting. Musculoskeletal: Negative for joint swelling, neck pain and neck stiffness. Skin: Negative for rash. Neurological: Positive for headaches. Negative for dizziness and weakness. Objective BP 131/87 Pulse 110 Temp (!) 38.6 ?C (101.4 ?F) Resp 18 Wt 105 kg (231 lb 7.7 oz) SpO2 97% BMI 32.74 kg/m? Physical Exam Constitutional: Appearance: Normal appearance. HENT: Head: Normocephalic. Ears: Comments: Unable to visualize bilateral TMs due to cerumen impaction. No tragal tenderness or otorrhea. Nose: Nose normal. No congestion or rhinorrhea. Mouth/Throat: Mouth: Mucous membranes are moist. Pharynx: Oropharynx is clear. Uvula midline. No pharyngeal swelling, oropharyngeal exudate, posterior oropharyngeal erythema or uvula swelling. Eyes: Conjunctiva/sclera: Conjunctivae normal. Cardiovascular: Rate and Rhythm: Normal rate. Pulmonary: Effort: Pulmonary effort is normal. Breath sounds: Normal breath sounds. No wheezing, rhonchi or rales. Abdominal: Palpations: Abdomen is soft. Tenderness: There is no abdominal tenderness. There is no guarding or rebound. Musculoskeletal: General: Normal range of motion. Cervical back: Normal range of motion and neck supple. No rigidity. Lymphadenopathy: Cervical: No cervical adenopathy. Skin: General: Skin is warm. Findings: No rash. Neurological: Mental Status: He is alert. {ASSESSMENT/PLAN: 1. Otalgia, right - ICD9: 388.70, ICD10: H92.01 Diagnosis otalgia right ear. Unable to visualize TM. With fever and pain will place on Augmentin. We discussed returning for ear lavage. We discussed the possibility of this being a viral illness. Patient was educated on supportive therapies. Patient will follow up with primary care provider as needed. Patient was instructed to immediately proceed to emergency room for any new, worsening, or symptoms lasting longer than anticipated. The patient's clinical presentation is otherwise unremarkable at this time. Based on exam and clinical finding, the patient is stable for discharge. Plan of care was discussed with patient. Patient verbalizes understanding and agrees to plan of care. This note was generated using [employer] software. It may contain errors in wording, punctuation, or spelling. Mark Domingo APRN.AUTOMOTIVE SOFTWARE ENGINEER MDM Procedures Allergies As of Date: 09/03/2025 Noted Allergy Reaction SEASONAL ALLERGIES 09/03/2014 14 - Other: See Comments Comments: runny nose and sneezing Date Reviewed: 09/03/2025 Reviewed by: Mark Domingo APRN.AUTOMOTIVE SOFTWARE ENGINEER - Fully Assessed Reason for Visit: Head Congestion [234] Cmt: Fever, sinus pressure, R ear pain x2 days Primary Visit Diagnosis:Otalgia, right [H92.01] Order(s):amoxicillin-clavula jason potassium (AUGMENTIN) 875-125 mg per tabletTake 1 tablet by mouth two times a day for 7 days.Disp: 14 tabletRfl: 0 Prescriptions as of 09/03/2025 - amoxicillin-clavulanate potassium (AUGMENTIN) 875-125 mg per tablet Take 1 tablet by mouth two times a day for 7 days. - sod vofmf-exnobk-yyaxdu bottle (NEILMED SINUS RINSE COMPLETE) pkdv Dissolve one packet or sachet in 8 oz (240 mL) or lukewarm distilled, previously boiled or bottled water. Use as directed per package instructions - fluticasone (FLONASE) 50 mcg/actua (more content not included)... Normal [facility] CNOVon 05-18-2025 CNOV Office Visit (FAMPWS ) MG ROACH ([id number]) 1980 M Date Time Provider Department 05/18/25 2:40 PM MARK CANTU FAMPWS During your visit today, we recorded the following information about you: Pulse Respiration Blood pressure Weight 82/minute 16/minute 124/84 104.6 kg Height 1.791 m Mark Cantu MD 05/18/2025 11:00 PM Signed Chief Complaint Patient presents with: Well Adult HPI Mg Roach is a 45 year old male who presents here today for a Physical and chronic health issues. . Labs currently in process. Patient with Hx of Seasonal allergies, Obesity, Small bowel obstruction, ex-smoker as well as those reviewed and addressed below in ROS. Pt seen by Karissa De La uFente CNP in October after being admitted into [facility] [place] for SBO, Hypokalemia, elevated LFT's, and elevated TSH. Labs were completed at that visit and were normal. Seasonal allergies controlled with Flonase as needed and Sinus Rinse. Brought Wellness form to be completed into office today for work. Mg completed fasting labs this morning, fasting for approximately 10.5 hours. He is requesting completion of his work health form and plans to pick it up in person. He is currently in the process of moving to a new residence in [place], approximately 3 miles from his current location near [facility]. He denies any surgeries in the past year and is not aware of any new health issues in his blood relatives. He confirms that his maternal and paternal grandparents are . He denies any family history of prostate cancer. He denies recent fevers, frequent headaches, sudden changes in hearing or vision, issues with his nose or throat, lumps or swelling in his neck, wheezing, dyspnea, hemoptysis, or colomycus. He also denies chest pain, palpitations, or leg swelling. He reports no frequent nausea, emesis, diarrhea, or heartburn, and has not noticed any blood in his urine, discomfort with urination, or a sudden increase in urinary frequency. He denies any unusual muscle or joint aches, skin lesions, rashes, or sores. In the past two weeks, he has not felt nervous or on edge, nor has he been worrying excessively. He denies any easy bruising or bleeding that is new or different from usual, and has not experienced any changes in his tolerance to heat or cold. He reports no recent increase in thirst, syncope, seizures, or tremors. He is a nonsmoker. His tetanus vaccination is up to date until next year. Past medical history, appointments, medications, allergies reviewed. Previous Medical History PAST MEDICAL HISTORY Diagnosis Date Ex-smoker 08/19/2021 Started age 21 about a pack a week quit age 25 Hyperlipidemia, mixed 10/28/2024 Obesity, Class I, BMI 30-34.9 08/20/2019 Seasonal allergic rhinitis due to pollen 08/20/2018 Previous Surgical History PAST SURGICAL HISTORY Procedure Laterality Date TONSILLECTOMY HX Family History FAMILY HISTORY Problem Relation Age of Onset None Mother Hypertension Father Hyperlipidemia Father None Brother None Brother Alzheimer's Disease Maternal Grandfather Coronary Artery Disease Paternal Grandfather 80's Stroke Paternal Grandfather Colon Cancer No Family History Prostate Cancer No Family History Breast Cancer No Family History Ovarian cancer No Family History Diabetes No Family History Kidney Disease No Family History Seizures No Family History Thyroid No Family History Patient Allergies ALLERGIES Allergen Reactions Seasonal Allergies Other: See Comments runny nose and sneezing Current Medications Current Outpatient Medications on File Prior to Visit Medication Sig sod bcmso-oeeiyc-yaagzm bottle (NEILMED SINUS RINSE COMPLETE) pkdv Dissolve one packet or sachet in 8 oz (240 mL) or lukewarm distilled, previously boiled or bottled water. Use as directed per package instructions fluticasone (FLONASE) 50 mcg/actuation nasal spray Use 2 Sprays in each nostril once daily. Rinse mouth after use. No current facility-administered medications on file prior to visit. Social History Social History Tobacco Use Smoking status: Former Current packs/day: 0.50 Average packs/day: 0.5 packs/day for 2.0 years (1.0 ttl pk-yrs) Types: Cigarettes Smokeless tobacco: Former Tobacco comments: quit 2005 Vaping Use Vaping status: Never Used Substance Use Topics Alcohol use: Yes Alcohol/week: 2.0 standard drinks of alcohol Types: 2 Glasses of Wine (5oz) per week Comment: very little Drug use: No Review of Symptoms REVIEW OF SYSTEMS GENERAL: No weight loss, malaise or fevers HEENT: Negative for frequent or significant headaches, No changes in hearing or vision, no nose bleeds or other nasal problems NECK: Negative for lumps, goiter, pain and significant neck swelling RESPIRATORY: Negative for cough, hemoptysis, wheezing, COPD, dyspnea or shortness o (more content not included)... Normal [facility] CNPNon 05-18-2025 CNPN Telephone (FAMPWS) MG ROACH ([id number]) 1980 M Date Time Provider Department 05/18/25 MARK CATNU [facility] During your visit today, we recorded the following information about you: Ana Cristina Banks MA 05/18/2025 7:43 AM Signed Pt at the office today wanting to complete his lab orders that are in for September. His Insurance covers a Physical once per calendar year. He changed his appt to this time from October and would like to complete his lab today prior to his appt. PSR unable to pull lab orders due to expected date being in September. Can we please put in new orders for completion today. Pt is scheduled for Physical today. Update Nurse once complete, to update front lobby staff. Ana Cristina Banks MA Allergies As of Date: 05/18/2025 Noted Allergy Reaction SEASONAL ALLERGIES 09/03/2014 14 - Other: See Comments Comments: runny nose and sneezing Date Reviewed: 11/10/2024 Reviewed by: Katerina Perez MA - Fully Assessed Reason for Visit: Orders [681] Primary Visit Diagnosis:Screening for prostate cancer [Z12.5] Other Visit Diagnoses:Hyperlipidemia, mixed [E78.2] Well adult exam [Z00.00] Encounter for screening for diabetes mellitus [Z13.1] Order(s):LIPID PANEL, NONFASTING [SQLIPNF] Order #: [id number] FUTURE HEMOGLOBIN A1C [SJWCO3K] Order #: [id number] FUTURE PSA/PROSTATE SPECIFIC ANTIGEN SCREENING [SQPSAS1] Order #: [id number] FUTURE COMPREHENSIVE METABOLIC PANEL [SQCMP] Order #: [id number] FUTURE URINALYSIS, WITH MICROSCOPIC [SQUAWMIC] Order #: [id number] FUTURE Prescriptions as of 05/18/2025 - sod qscrf-xufqbe-ibusom bottle (NEILMED SINUS RINSE COMPLETE) pkdv Dissolve one packet or sachet in 8 oz (240 mL) or lukewarm distilled, previously boiled or bottled water. Use as directed per package instructions - fluticasone (FLONASE) 50 mcg/actuation nasal spray Use 2 Sprays in each nostril once daily. Rinse mouth after use. Problem List As Of Date 05/18/2025 Noted Resolved Calf pain [M79.669] 09/03/2014 08/20/2018 Seasonal allergic rhinitis due to pollen [J30.1]08/20/2018 Obesity, Class I, BMI 30-34.9 [E66.811] 08/20/2019 Encounter for screening for diabetes mellitus [*08/15/2021 Ex-smoker [Z87.891] 08/19/2021 Well adult exam [Z00.00] 08/19/2021 Screening for prostate cancer [Z12.5] 08/28/2022 Hyperlipidemia, mixed [E78.2] 10/28/2024 Encounter Status:Closed by MARK CANTU on 05/18/25 Normal [facility] Comprehensive metabolic 2000 panelon 05-18-2025 Albumin [Mass/Vol] 4.5 g/dL Normal 3.9-4.9 [facility] Comment on above: Order Comment: Speci men Type: BLOOD SPECIMENOrdering Facility: [facility] Address: [address] [place] [address] Performed By: #### 2 4323-8, LIPNF ####[facility] LABCLIA [id number] [place] [address] [place] ALP [Catalytic activity/Vol] 71 U/L Normal 38-113 [facility] Comment on above: Order Comment: Speci men Type: BLOOD SPECIMENOrdering Facility: [facility] Address: [address] [place] [address] Performed By: #### 2 4323-8, LIPNF ####[facility] LABCLIA [id number] [place] [address] [place] ALT [Catalytic activity/Vol] 16 U/L Normal 10-54 [facility] Comment on above: Order Comment: Speci men Type: BLOOD SPECIMENOrdering Facility: [facility] Address: [address] [place] [address] Performed By: #### 2 4323-8, LIPNF ####[facility] LABCLIA [id number] [place] [address] [place] Anion gap [Moles/Vol] 12 mmol/L Normal 8-15 [facility] Comment on above: Order Comment: Speci men Type: BLOOD SPECIMENOrdering Facility: [facility] Address: [address] [place] [address] Performed By: #### 2 4323-8, LIPNF ####[facility] LABCLIA [id number] [place] [address] [place] AST [Catalytic activity/Vol] 21 U/L Normal 14-40 [facility] Comment on above: Order Comment: Speci men Type: BLOOD SPECIMENOrdering Facility: [facility] Address: [address] [place] [address] Performed By: #### 2 4323-8, LIPNF ####[facility] LABCLIA [id number] [place] [address] [place] Bilirubin [Mass/Vol] 0.4 mg/dL Normal 0.2-1.3 [facility] Comment on above: Order Comment: Speci men Type: BLOOD SPECIMENOrdering Facility: [facility] Address: [address] [id number] Performed By: #### 2 4323-8, LIPNF ####[facility] LABCLIA [id number] [place] [address] [place] Calcium [Mass/Vol] 9.1 mg/dL Normal 8.5-10.2 [facility] Comment on above: Order Comment: Speci men Type: BLOOD SPECIMENOrdering Facility: [facility] Address: [address] [place] [address] Performed By: #### 2 4323-8, LIPNF ####[facility] LABCLIA [id number] [place] [address] [place] Chloride [Moles/Vol] 105 mmol/L Normal 98-107 [facility] Comment on above: Order Comment: Speci men Type: BLOOD SPECIMENOrdering Facility: [facility] Address: [address] [place] [address] Performed By: #### 2 4323-8, LIPNF ####[facility] LABCLIA [id number] [place] [address] [place] CO2 [Moles/Vol] 23 mmol/L Normal 22-30 [facility] Comment on above: Order Comment: Speci men Type: BLOOD SPECIMENOrdering Facility: [facility] Address: [address] [place] [address] Performed By: #### 2 4323-8, LIPNF ####[facility] LABCLIA [id number] [place] [id number] [place] Creatinine [Mass/Vol] 0.92 mg/dL Normal 0.73-1.22 [facility] Comment on above: Order Comment: Speci men Type: BLOOD SPECIMENOrdering Facility: [facility] Address: [address] [place], [place] [address] Performed By: #### 2 4323-8, LIPNF ####[facility] LABCLIA [id number] [place] [address] [place] Creatinine and Glomerular filtration rate.predicted panel (S/P/Bld) 105 mL/min/1.73m??? Normal >=60 [facility] Comment on above: Order Comment: Hood natalie Type: BLOOD SPECIMENOrdering Facility: [facility] Address: [address] [place] [address] Result Comment: Rubina mated Glomerular Filtration Rate (eGFR) is calculated using the 2020 CKD-EPI creatinine equation. This equation utilizes serum creatinine, sex, and age as parameters. The creatinine assay has traceable calibration to isotope dilution-mass spectrometry. Refer to KDIGO guidelines for clinical interpretation. In patients with unstable renal function, e.g. those with acute kidney injury, the eGFR may not accurately reflect actual GFR. Performed By: #### 2 4323-8, LIPNF ####[facility] LABCLIA [id number] [place] [address] [place] Glucose [Mass/Vol] 98 mg/dL Normal 74-99 [facility] Comment on above: Order Comment: Hood estrada Type: BLOOD SPECIMENOrdering Facility: [facility] Address: [address] [place] [address] Result Comment: The [place] Diabetes Association (ADA) provides guidance for cutoff values for fasting glucose and random glucose. The ADA defines fasting as no caloric intake for at least 8 hours. Fasting plasma glucose results between 100 to 125 mg/dL indicate increased risk for diabetes (prediabetes). Fasting plasma glucose results greater than or equal to 126 mg/dL meet the criteria for diagnosis of diabetes. In the absence of unequivocal hyperglycemia, results should be confirmed by repeat testing. In a patient with classic symptoms of hyperglycemia or hyperglycemic crisis, random plasma glucose results greater than or equal to 200 mg/dL meet the criteria for diagnosis of diabetes. Reference: Standards of Medical Care in Diabetes 2016, [place] Diabetes Association. Diabetes Care. 2016.39(Suppl 1). Performed By: #### 2 4323-8, LIPNF ####[facility] LABIA [id number] [place] [id number] [place] Potassium [Moles/Vol] 4.1 mmol/L Normal 3.7-5.1 [facility] Comment on above: Order Comment: Speci men Type: BLOOD SPECIMENOrdering Facility: [facility] Address: [address] [place] [address] Performed By: #### 2 4323-8, LIPNF ####[facility] LABCLIA [id number] [place] [address] [place] Protein [Mass/Vol] 7.2 g/dL Normal 6.3-8.0 [facility] Comment on above: Order Comment: Speci men Type: BLOOD SPECIMENOrdering Facility: [facility] Address: [address] [place] [address] Performed By: #### 2 4323-8, LIPNF ####[facility] LABCLIA [id number] [place] [address] [place] Sodium [Moles/Vol] 140 mmol/L Normal 136-144 [facility] Comment on above: Order Comment: Speci men Type: BLOOD SPECIMENOrdering Facility: [facility] Address: [address] [place] [address] Performed By: #### 2 4323-8, LIPNF ####[facility] LABCLIA [id number] [place] [address] [place] Urea nitrogen [Mass/Vol] 12 mg/dL Normal 9-24 [facility] Comment on above: Order Comment: Speci men Type: BLOOD SPECIMENOrdering Facility: [facility] Address: [address] [place] [address] Performed By: #### 2 4323-8, LIPNF ####[facility] LABCLIA [id number] [place] [id number] [place] HbA1c (Bld)on 05-18-2025 Average glucose Estimated from glycated hemoglobin (Bld) [Mass/Vol] 103 mg/dL Normal [facility] Comment on above: Order Comment: Speci men Type: BLOOD SPECIMENOrdering Facility: [facility] Address: [address] [place] [address] Result Comment: eAG: (Estimated average glucose) is a calculated value from HgbA1c and is outside dealer sales representative of the average blood glucose level in the last 2-3 month period. Performed By: #### 5 5454-3 ####[facility] LABCLIA [id number] [place] [address] [place] HbA1c (Bld) [Mass fraction] 5.2 % Normal 4.3-5.6 [facility] Comment on above: Order Comment: Hood estrada Type: BLOOD SPECIMENOrdering Facility: [facility] Address: [address] [place] [address] Result Comment: Amer ican Diabetes Association guidelines indicate that patients with HgbA1c in the range 5.7-6.4% are at increased risk for development of diabetes, and intervention by lifestyle modification may be beneficial. HgbA1c greater or equal to 6.5% is considered diagnostic of diabetes. Performed By: #### 5 5454-3 ####[facility] LABIA [id number] [place] [id number] [place] LIPID PANEL, NONFASTINGon Cholesterol [Mass/Vol] 227 mg/dL High <200 [facility] Comment on above: Order Comment: Hood estrada Type: BLOOD SPECIMENOrdering Facility: [facility] Address: [address] [place] [address] Result Comment: <200 mg/dL, Desirable 200-239 mg/dL, Borderline high >239 mg/dL, High Performed By: #### 2 4323-8, LIPNF ####[facility] LABIA [id number] [place] [id number] [place] HDL CHOLESTEROL, NF 42 mg/dL Normal >39 [facility] Comment on above: Order Comment: Hood estrada Type: BLOOD SPECIMENOrdering Facility: [facility] Address: [address] [place] [address] Result Comment: 40-5 9 mg/dL, Acceptable >59 mg/dL, High: Negative risk factor for coronary heart disease <40 mg/dL, Low: Positive risk factor for coronary heart disease Performed By: #### 2 4323-8, LIPNF ####[facility] LABCLIA [id number] [place] [address] [place] LDL CHOLESTEROL CALCULATED, NF 164 mg/dL High <100 [facility] Comment on above: Order Comment: Flavioi men Type: BLOOD SPECIMENOrdering Facility: [facility] Address: [address] [place] [address] Result Comment: <100 mg/dL, Optimal 100-129 mg/dL, Near optimal/above optimal 130-159 mg/dL, Borderline high 160-189 mg/dL, High >189 mg/dL, Very high Secondary prevention optimal LDL Cholesterol levels are recommended to be <70 mg/dL LDL cholesterol is calculated using the Reina-NIH equation. Performed By: #### 2 4323-8, LIPNF ####[facility] LABIA [id number] [address] [place] LDL/HDL RATIO, NF 3.90 mg/dL High <2.54 [facility] Comment on above: Order Comment: Hood estrada Type: BLOOD SPECIMENOrdering Facility: [facility] Address: [address] [place] [address] Result Comment: Refe rence: 1. National Cholesterol Education Program ATP III Guideline At-A-Glance Quick Desk Reference: National Heart, Lung, and Blood [place]. National Institutes of Health. 2001: NIH Publication No. 01-3305. 2. An International Atherosclerosis Society position paper: global recommendations for the management of dyslipidemia: executive summary, Atherosclerosis. 2014: 232(2):410-413. Performed By: #### 2 4323-8, LIPNF ####[facility] LABCLIA [id number] [place] [address] [place] NON HDL CHOL, NF 185 mg/dL High <130 [facility] Comment on above: Order Comment: Hood men Type: BLOOD SPECIMENOrdering Facility: [facility] Address: [address] [place] [address] Result Comment: <130 mg/dL, Optimal 130-159 mg/dL, Near optimal/above optimal 160-189 mg/dL, Borderline high 190-219 mg/dL, High >219 mg/dL, Very high Secondary prevention optimal non HDL Cholesterol levels are recommended to be <100 mg/dL Performed By: #### 2 4323-8, LIPNF ####[facility] LABCLIA [id number] [place] [address] [place] T CHOL/HDL RATIO NF 5.40 mg/dL High <5.10 [facility] Comment on above: Order Comment: Speci men Type: BLOOD SPECIMENOrdering Facility: [facility] Address: [address] [place] [address] Performed By: #### 2 4323-8, LIPNF ####[facility] LABCLIA [id number] [place] [address] [place] TRIGLYCERIDES, NF 115 mg/dL Normal <150 [facility] Comment on above: Order Comment: Speci men Type: BLOOD SPECIMENOrdering Facility: [facility] Address: [address] [place] [address] Result Comment: <150 mg/dL, Normal 150-199 mg/dL, Borderline high 200-499 mg/dL, High >499 mg/dL, Very high Performed By: #### 2 4323-8, LIPNF ####[facility] LABCLIA [id number] [place] [address] [place] VLDL CHOLESTEROL, NF 22 mg/dL Normal <30 [facility] Comment on above: Order Comment: Speci men Type: BLOOD SPECIMENOrdering Facility: [facility] Address: [address] [place] [address] Performed By: #### 2 4323-8, LIPNF ####[facility] LABCLIA [id number] [place] [address] [place] PSA/PROSTATE SPECIFIC ANTIGE N SCREENINGon 05-18-2025 Prostate specific Ag [Mass/Vol] 0.54 ng/mL Normal <2.60 [facility] Comment on above: Order Comment: Speci men Type: BLOOD SPECIMENOrdering Facility: [facility] Address: [address] [place] [address] Result Comment: Tota l PSA test methodology used is the Electrochemiluminescence Immunoassay by [employer]. Total PSA values by differing methodologies cannot be interchanged. Performed By: #### P SAS1 ####[facility] LABCLIA [id number] [facility]ITALBibiana [facility]ISEN[facility]OWER MEDICAL CENTERJose [address] OF [facility] CNPNon 11-21-2024 [facility] ([id number]) 1980 M Date Time Provider Department 11/21/24 [facility] During your visit today, we recorded the following information about you: Gilma Gerber RN 11/21/2024 9:20 AM Signed Patient calls to report that forms (FMLA and yearly check-up form) from appointment on 11/10/2024 with Karissa De La Fuente were not received by his employer. Re-faxed to [phone] with confirmation that forms were received. Notified patient. Gilma Gerbre RN Allergies As of Date: 11/21/2024 Noted Allergy Reaction SEASONAL ALLERGIES 09/03/2014 14 - Other: See Comments Comments: runny nose and sneezing Date Reviewed: 11/10/2024 Reviewed by: Katerina Perez MA - Fully Assessed Reason for Visit: Forms [913] Prescriptions as of 11/21/2024 - sod bqxoh-ydmqvb-ggpeze bottle (NEILMED SINUS RINSE COMPLETE) pkdv Dissolve one packet or sachet in 8 oz (240 mL) or lukewarm distilled, previously boiled or bottled water. Use as directed per package instructions - fluticasone (FLONASE) 50 mcg/actuation nasal spray Use 2 Sprays in each nostril once daily. Rinse mouth after use. Problem List As Of Date 11/21/2024 Noted Resolved Calf pain [M79.669] 09/03/2014 08/20/2018 Seasonal allergic rhinitis due to pollen [J30.1]08/20/2018 Obesity, Class I, BMI 30-34.9 [E66.811] 08/20/2019 Encounter for screening for diabetes mellitus [*08/15/2021 Ex-smoker [Z87.891] 08/19/2021 Well adult exam [Z00.00] 08/19/2021 Screening for prostate cancer [Z12.5] 08/28/2022 Encounter for lipid screening for cardiovascula*10/28/2024 Hyperlipidemia, mixed [E78.2] 10/28/2024 Encounter Status:Closed by GILMA GERBER on 11/21/24 Normal [facility] 11-11-2024 [facility] Telephone (FAMWS) MG ROACH ([id number]) 1980 Date Time Provider Department 11/11/24 [facility] During your visit today, we recorded the following information about you: Karissa De La Fuente APRN.AUTOMOTIVE SOFTWARE ENGINEER 11/11/2024 8:09 AM Signed Please let patient know their labs are normal. Payal Macias RN 11/11/2024 9:47 AM Signed Pt called and is notified of providers results. Pt voices understanding. Payal Maicas RN Allergies As of Date: 11/11/2024 Noted Allergy Reaction SEASONAL ALLERGIES 09/03/2014 14 - Other: See Comments Comments: runny nose and sneezing Date Reviewed: 11/10/2024 Reviewed by: Katerina Perez MA - Fully Assessed Reason for Visit: Results [95] Prescriptions as of 11/11/2024 - sod uqnix-jfmdzn-yetlct bottle (NEILMED SINUS RINSE COMPLETE) pkdv Dissolve one packet or sachet in 8 oz (240 mL) or lukewarm distilled, previously boiled or bottled water. Use as directed per package instructions - fluticasone (FLONASE) 50 mcg/actuation nasal spray Use 2 Sprays in each nostril once daily. Rinse mouth after use. Problem List As Of Date 11/11/2024 Noted Resolved Calf pain [M79.669] 09/03/2014 08/20/2018 Seasonal allergic rhinitis due to pollen [J30.1]08/20/2018 Obesity, Class I, BMI 30-34.9 [E66.811] 08/20/2019 Encounter for screening for diabetes mellitus [*08/15/2021 Ex-smoker [Z87.891] 08/19/2021 Well adult exam [Z00.00] 08/19/2021 Screening for prostate cancer [Z12.5] 08/28/2022 Encounter for lipid screening for cardiovascula*10/28/2024 Hyperlipidemia, mixed [E78.2] 10/28/2024 Encounter Status:Closed by PAYAL MACIAS on 11/11/24 [facility] SOTEROOVterry 11-10-2024 CNOV Office Visit (FEWS ) MG ROACH ([id number]) 1980 M Date Time Provider Department 11/10/24 1:40 PM KARISSA DE LA FUENTE During your visit today, we recorded the following information about you: Pulse Respiration Blood pressure Weight 89/minute 14/minute 113/77 103.9 kg Karissa De La Fuente APRN.AUTOMOTIVE SOFTWARE ENGINEER 11/10/2024 1:56 PM Signed Chief Complaint Patient presents with: Hospital F/U HPI Mg Roach is a 44 year old male who presents here today for Above Complaints.. Patient presents for ER follow up for SBO. Patient was admitted to [facility] from 11/01-11/04 during which he had an NG tube. Upon D/c patient was instructed to have labs rechecked due to elevated liver enzymes, hypokalemia and elevated TSH. Past medical history, appointments, medications, allergies reviewed. Previous Medical History PAST MEDICAL HISTORY Diagnosis Date Ex-smoker 08/19/2021 Started age 21 about a pack a week quit age 25 Hyperlipidemia, mixed 10/28/2024 Obesity, Class I, BMI 30-34.9 08/20/2019 Seasonal allergic rhinitis due to pollen 08/20/2018 Previous Surgical History PAST SURGICAL HISTORY Procedure Laterality Date TONSILLECTOMY HX Family History FAMILY HISTORY Problem Relation Age of Onset None Mother Hypertension Father Hyperlipidemia Father None Brother None Brother Alzheimer's Disease Maternal Grandfather Coronary Artery Disease Paternal Grandfather 80's Stroke Paternal Grandfather Colon Cancer No Family History Prostate Cancer No Family History Breast Cancer No Family History Ovarian cancer No Family History Diabetes No Family History Kidney Disease No Family History Seizures No Family History Thyroid No Family History Patient Allergies ALLERGIES Allergen Reactions Seasonal Allergies Other: See Comments runny nose and sneezing Current Medications Current Outpatient Medications on File Prior to Visit Medication Sig sod rmait-yigqqa-jxbnxz bottle (NEILMED SINUS RINSE COMPLETE) pkdv Dissolve one packet or sachet in 8 oz (240 mL) or lukewarm distilled, previously boiled or bottled water. Use as directed per package instructions fluticasone (FLONASE) 50 mcg/actuation nasal spray Use 2 Sprays in each nostril once daily. Rinse mouth after use. No current facility-administered medications on file prior to visit. Social History Social History Tobacco Use Smoking status: Former Current packs/day: 0.50 Average packs/day: 0.5 packs/day for 2.0 years (1.0 ttl pk-yrs) Types: Cigarettes Smokeless tobacco: Former Tobacco comments: quit 2005 Vaping Use Vaping status: Never Used Substance Use Topics Alcohol use: Yes Alcohol/week: 2.0 standard drinks of alcohol Types: 2 Glasses of Wine (5oz) per week Drug use: No Review of Symptoms REVIEW OF SYSTEMS SEE HPI EXAM: BP 113/77 Pulse 89 Resp 14 Wt 103.9 kg (229 lb) BMI 32.39 kg/m? General Appearance: Well appearing, alert, in no acute distress, well-hydrated, well nourished. Lungs: Lungs clear to auscultation. No wheezing, rhonchi, rales.. Heart: RRR without murmur, gallop, or rubs. No ectopy. Abdomen: Normal abdominal exam, Abdomen soft, non-tender. Bowel sounds normal. No masses, organomegaly. Health Maintenance List Depression Screening Never done Anxiety Screening due on 10/28/2025 DTaP,Tdap,Td Vaccine(5 - Td or Tdap) due on 05/25/2026 Lipid Screening due on 10/28/2029 Hepatitis C Screening Completed HIV Screening Completed HPV Vaccine Aged Out Hepatitis B Vaccine Discontinued Influenza Vaccine Discontinued Covid-19 Vaccine Discontinued ASSESSMENT/PLAN: 1. SBO (small bowel obstruction) (HCC) - ICD9: 560.9, ICD10: K56.609 -Resolved. Patient has follow up with general surgery in 2-4 weeks. 2. Hypokalemia - ICD9: 276.8, ICD10: E87.6 - COMPREHENSIVE METABOLIC PANEL 3. Elevated liver function tests - ICD9: 790.6, ICD10: R79.89 - COMPREHENSIVE METABOLIC PANEL 4. Elevated TSH - ICD9: 794.5, ICD10: R79.89 - THYROID STIMULATING HORMONE Karissa De La Fuente APRN.AUTOMOTIVE SOFTWARE ENGINEER Allergies As of Date: 11/10/2024 Noted Allergy Reaction SEASONAL ALLERGIES 09/03/2014 14 - Other: See Comments Comments: runny nose and sneezing Date Reviewed: 11/10/2024 Reviewed by: Katerina Perez MA - Fully Assessed Reason for Visit: Hospital F/U [57] Primary Visit Diagnosis:SBO (small bowel obstruction) (HCC) [K56.609] Other Visit Diagnoses:Hypokalemia [E87.6] Elevated liver function tests [R79.89] Elevated TSH [R79.89] Order(s):COMPREHENSIVE METABOLIC PANEL [SQCMP] Order #: [id number] FUTURE THYROID STIMULATING HORMONE [SQTSH] Order #: [id number] FUTURE Prescriptions as of 11/10/2024 - sod kpbsg-rsjfmp-gcohkp bottle (NEILMED SINUS RINSE COMPLETE) pkdv Dissolve one packet or sachet in 8 oz (240 mL) or lukewarm distilled, previously boiled or bottled water. Use as directed per package instructions - flut (more content not included)... Normal [facility] Comprehensive metabolic 2000 panelon 11-10-2024 Albumin [Mass/Vol] 4.4 g/dL Normal 3.9-4.9 [facility] Comment on above: Order Comment: Speci men Type: BLOOD SPECIMENOrdering Facility: [facility] Address: [address] [place] [address] Performed By: #### 2 4323-8 ####[facility] LABCLIA [id number] [place] [address] [place] ALP [Catalytic activity/Vol] 75 U/L Normal 38-113 [facility] Comment on above: Order Comment: Speci men Type: BLOOD SPECIMENOrdering Facility: [facility] Address: [address] [place] [address] Performed By: #### 2 4323-8 ####[facility] LABCLIA [id number] [place] [address] [place] ALT [Catalytic activity/Vol] 53 U/L Normal 10-54 [facility] Comment on above: Order Comment: Speci men Type: BLOOD SPECIMENOrdering Facility: [facility] Address: [address] [place] [address] Performed By: #### 2 4323-8 ####[facility] LABCLIA [id number] [place] [address] [place] Anion gap [Moles/Vol] 13 mmol/L Normal 8-15 [facility] Comment on above: Order Comment: Speci men Type: BLOOD SPECIMENOrdering Facility: [facility] Address: [address] [place] [address] Performed By: #### 2 4323-8 ####[facility] LABCLIA [id number] [place] [address] [place] AST [Catalytic activity/Vol] 24 U/L Normal 14-40 [facility] Comment on above: Order Comment: Speci men Type: BLOOD SPECIMENOrdering Facility: [facility] Address: [address] [place] [address] Performed By: #### 2 4323-8 ####[facility] LABCLIA [id number] [place] [address] [place] Bilirubin [Mass/Vol] 0.4 mg/dL Normal 0.2-1.3 [facility] Comment on above: Order Comment: Speci men Type: BLOOD SPECIMENOrdering Facility: [facility] Address: [address] [place] [address] Performed By: #### 2 4323-8 ####[facility] LABCLIA [id number] [place] [address] [place] Calcium [Mass/Vol] 9.3 mg/dL Normal 8.5-10.2 [facility] Comment on above: Order Comment: Speci men Type: BLOOD SPECIMENOrdering Facility: [facility] Address: [address] [place] [address] Performed By: #### 2 4323-8 ####[facility] LABCLIA [id number] [place] [address] [place] Chloride [Moles/Vol] 102 mmol/L Normal 98-107 [facility] Comment on above: Order Comment: Speci men Type: BLOOD SPECIMENOrdering Facility: [facility] Address: [address] [place] [address] Performed By: #### 2 4323-8 ####[facility] LABCLIA [id number] [place] [address] [place] CO2 [Moles/Vol] 23 mmol/L Normal 22-30 [facility] Comment on above: Order Comment: Speci men Type: BLOOD SPECIMENOrdering Facility: [facility] Address: [address] [place] [address] Performed By: #### 2 4323-8 ####[facility] LABCLIA [id number] [place] [id number] [place] Creatinine [Mass/Vol] 0.95 mg/dL Normal 0.73-1.22 [facility] Comment on above: Order Comment: Speci men Type: BLOOD SPECIMENOrdering Facility: [facility] Address: [address] [place] [address] Performed By: #### 2 4323-8 ####[facility] LABCLIA [id number] [place] [address] [place] Creatinine and Glomerular filtration rate.predicted panel (S/P/Bld) 102 mL/min/1.73m??? Normal >=60 [facility] Comment on above: Order Comment: Speci men Type: BLOOD SPECIMENOrdering Facility: [facility] Address: [address] [place] [address] Result Comment: Rubina mated Glomerular Filtration Rate (eGFR) is calculated using the 2020 CKD-EPI creatinine equation. This equation utilizes serum creatinine, sex, and age as parameters. The creatinine assay has traceable calibration to isotope dilution-mass spectrometry. Refer to KDIGO guidelines for clinical interpretation. In patients with unstable renal function, e.g. those with acute kidney injury, the eGFR may not accurately reflect actual GFR. Performed By: #### 2 4323-8 ####[facility] LABIA [id number] [place] [address] [place] Glucose [Mass/Vol] 105 mg/dL High 74-99 [facility] Comment on above: Order Comment: Speci men Type: BLOOD SPECIMENOrdering Facility: [facility] Address: [address] [place] [address] Result Comment: The [place] Diabetes Association (ADA) provides guidance for cutoff values for fasting glucose and random glucose. The ADA defines fasting as no caloric intake for at least 8 hours. Fasting plasma glucose results between 100 to 125 mg/dL indicate increased risk for diabetes (prediabetes). Fasting plasma glucose results greater than or equal to 126 mg/dL meet the criteria for diagnosis of diabetes. In the absence of unequivocal hyperglycemia, results should be confirmed by repeat testing. In a patient with classic symptoms of hyperglycemia or hyperglycemic crisis, random plasma glucose results greater than or equal to 200 mg/dL meet the criteria for diagnosis of diabetes. Reference: Standards of Medical Care in Diabetes 2016, [place] Diabetes Association. Diabetes Care. 2016.39(Suppl 1). Performed By: #### 2 4323-8 ####[facility] LABCLIA [id number] [place] [address] [place] Potassium [Moles/Vol] 4.4 mmol/L Normal 3.7-5.1 [facility] Comment on above: Order Comment: Speci men Type: BLOOD SPECIMENOrdering Facility: [facility] Address: [address] [place] [address] Performed By: #### 2 4323-8 ####[facility] LABCLIA [id number] [place] [address] [place] Protein [Mass/Vol] 7.4 g/dL Normal 6.3-8.0 [facility] Comment on above: Order Comment: Speci men Type: BLOOD SPECIMENOrdering Facility: [facility] Address: [address] [place] [address] Performed By: #### 2 4323-8 ####[facility] LABCLIA [id number] [place] [address] [place] Sodium [Moles/Vol] 138 mmol/L Normal 136-144 [facility] Comment on above: Order Comment: Speci men Type: BLOOD SPECIMENOrdering Facility: [facility] Address: [address] [place] [address] Performed By: #### 2 4323-8 ####[facility] LABCLIA [id number] [place] [address] [place] Urea nitrogen [Mass/Vol] 11 mg/dL Normal 9-24 [facility] Comment on above: Order Comment: Speci men Type: BLOOD SPECIMENOrdering Facility: [facility] Address: [address] [place] [address] Performed By: #### 2 4323-8 ####[facility] LABCLIA [id number] [id number] [id number] [place] CNPJuliana 11-07-2024 CNPN Telephone (FAMPWS) MG ROACH ([id number]) 1980 M Date Time Provider Department 11/07/24 [facility] During your visit today, we recorded the following information about you: Vera Galindo MA 11/07/2024 8:41 AM Signed Received D/C summary from [facility] [place]. Patient to schedule follow up. Left message for patient that he is scheduled 11/10/2024 at 1:40 pm with Karissa De La Fuente. Paperwork given to there office. Vera Galindo MA Allergies As of Date: 11/07/2024 Noted Allergy Reaction SEASONAL ALLERGIES 09/03/2014 14 - Other: See Comments Comments: runny nose and sneezing Date Reviewed: 10/28/2024 Reviewed by: Mark Cantu MD - Fully Assessed Reason for Visit: Appointment [186] Prescriptions as of 11/07/2024 - sod remub-cqwvgw-feizzc bottle (NEILMED SINUS RINSE COMPLETE) pkdv Dissolve one packet or sachet in 8 oz (240 mL) or lukewarm distilled, previously boiled or bottled water. Use as directed per package instructions - fluticasone (FLONASE) 50 mcg/actuation nasal spray Use 2 Sprays in each nostril once daily. Rinse mouth after use. Problem List As Of Date 11/07/2024 Noted Resolved Calf pain [M79.669] 09/03/2014 08/20/2018 Seasonal allergic rhinitis due to pollen [J30.1]08/20/2018 Obesity, Class I, BMI 30-34.9 [E66.811] 08/20/2019 Encounter for screening for diabetes mellitus [*08/15/2021 Ex-smoker [Z87.891] 08/19/2021 Well adult exam [Z00.00] 08/19/2021 Screening for prostate cancer [Z12.5] 08/28/2022 Encounter for lipid screening for cardiovascula*10/28/2024 Hyperlipidemia, mixed [E78.2] 10/28/2024 Encounter Status:Closed by KARISSA DE LA FUENTE on 11/07/24 Normal [facility] Metabolic Prof ilon 11-04-2024 Albumin [Mass/Vol] 3.1 g/dL Low 3.2-5.0 [facility] Comment on above: Performed By: #### L 500.4050 #### [facility] [address] [place], [address] Albumin/Globulin [Mass ratio] 0.9 {ratio} Normal 0.9-2.4 [facility] Comment on above: Performed By: #### L 500.4050 #### [facility] [address] [place], [address] ALK P 54 U/L Normal 45-117 [facility] Comment on above: Performed By: #### L 500.4050 #### [facility] [address] [place], [address] ALT [Catalytic activity/Vol] 86 U/L High 16-61 [facility] Comment on above: Performed By: #### L 500.4050 #### [facility] [address] [place], [address] AST [Catalytic activity/Vol] 29 U/L Normal 15-37 [facility] Comment on above: Performed By: #### L 500.4050 #### [facility] [address] [place], [address] Bilirubin [Mass/Vol] 0.50 mg/dL Normal 0.20-1.00 [facility] Comment on above: Result Comment: For patients on eltrombopag therapy, use of Dimension [place] TBIL is not recommended. Performed By: #### L 500.4050 #### [facility] [address] [place], [address] BUN/CRE 11.8 RATIO Normal 10-20 [facility] Comment on above: Performed By: #### L 500.4050 #### [facility] [address] [place], [address] CA,Total 8.8 mg/dL Normal 8.5-10.1 [facility] Comment on above: Performed By: #### L 500.4050 #### [facility] [address] [place], [address] Chloride [Moles/Vol] 107 mmol/L Normal 98-107 [facility] Comment on above: Performed By: #### L 500.4050 #### [facility] [address] [place], [address] CO2 [Moles/Vol] 28.0 mmol/L Normal 21.0-32.0 [facility] Comment on above: Performed By: #### L 500.4050 #### [facility] [address] [place], [address] Creatinine [Mass/Vol] 0.76 mg/dL Normal 0.70-1.30 [facility] Comment on above: Result Comment: The validity of the calculated GFR GFRAA in patients over 70 years has not been determined. Clinical correlation is essential. Performed By: #### L 500.4050 #### [facility] [address] [place], [address] ECRCL 155.32 ml/min Normal [facility] Comment on above: Performed By: #### L 500.4050 #### [facility] [address] [place], [address] EST GFR - AA 143 mL/min Normal >60 [facility] Comment on above: Result Comment: Afri can [place] GFR Calc Performed By: #### L 500.4050 #### [facility] [address] [place], [address] GAP 3 Low 5-15 [facility] Comment on above: Performed By: #### L 500.4050 #### [facility] [address] [place], [address] GFR/1.73 sq M.predicted among non-blacks MDRD (S/P/Bld) [Vol rate/Area] 118 mL/min/{1.73_m2} Normal >60 [facility] Comment on above: Result Comment: Non- GFR Calc Performed By: #### L 500.4050 #### [facility] [address] [place], [address] Globulin (S) [Mass/Vol] 3.4 g/dL Normal 2.2-4.2 [facility] Comment on above: Performed By: #### L 500.4050 #### [facility] [address] [place], [address] Glucose [Mass/Vol] 96 mg/dL Normal 74-106 [facility] Comment on above: Performed By: #### L 500.4050 #### [facility] [address] [place], [address] Potassium [Moles/Vol] 3.3 mmol/L Low 3.5-5.1 [facility] Comment on above: Performed By: #### L 500.4050 #### [facility] [address] [place], [address] Sodium [Moles/Vol] 138 mmol/L Normal 136-145 [facility] Comment on above: Performed By: #### L 500.4050 #### [facility] [address] [place], [address] T PROT 6.5 g/dL Normal 6.4-8.2 [facility] Comment on above: Performed By: #### L 500.4050 #### [facility] [address] [place], [address] Urea nitrogen [Mass/Vol] 9 mg/dL Normal 7-18 [facility] Comment on above: Performed By: #### L 500.4050 #### [facility] [address] [place], [address] Discharge Instructionon 10-13 Discharge Instruction [facility] Medical Records Department [address] [place] [address] Instructions for Home/Discharge Instructions 11/04/24 1425 MR#: [id number] Acct: [id number] Name: MG ROACH Rep #: [id number] : 1980 44 From: Cheryl Mixon MD PCP: Dr. Mark Cantu MD Status:ADM IN Discharge Instructions Diet Discharge Diet: - (Continue full liquid diet x 2-3 additional days then may transition but maintain soft foods until completely resolved per Surgery request.) DC O2, CPAP, BIPAP needs Home O2 Discharge instructions: No Dressing / Incision Discharge Activity: - (Encourage routine activity in the home but avoid aggressive activity until cleared per PCP.) May resume sexual activity in: 10-14 days Weight Bearing Status: Weight bearing as tolerated Dressing / Incision Call your doctor if you observe: Fever of 101 or Higher, Inability to have a bowel movement, Shortness of breath, Dizziness, Swelling in the ankles, Chest pain, Increased palpitations (irregular heartbeat), Calf discomfort and Uncontrolled pain Follow Up Care Test Results: Test results from this visit will be discussed in further detail at your follow-up appointment, if applicable. Discharge Plan Admission Admit Date/Time: 11/03/24 08:13 Primary Reason for Your Visit: Terminal ileitis w/ nnorovirus/ciguatoxin, SBO, Elevated LFTs, Hypokalemia Attending Provider: Cheryl Mixon Primary Care Provider: Mark Cantu Consulting Providers: Danny Byrd; Walter Mckeon; Courtney Herring Instructions Additional Instructions / Restrictions: ADDITIONAL DISCHARGE INSTRUCTIONS/RECOMMENDATIONS : #1. Acute terminal ileitis secondary to norovirus/ciguatoxin with complicating small bowel obstruction: --Per surgery recommendation please continue full liquid diet x 2-3 additional days and then may advance following as long as no abdominal pain, cramping, distention, nausea or emesis however once you do transition they requested preference of soft foods until complete resolution of illness. -- Please follow-up with surgery in 2 to 4 weeks to review presentation and assure complete resolution, may call the office earlier if concerns arise. -- Please have follow-up basic metabolic panel with your primary care physician to ensure that electrolytes remained resolved/normal in 3 to 5 days at follow-up. --During admission you had mild elevation of your liver function enzymes of unclear etiology, possibly secondary to underlying fatty liver disease with previous noted history of poorly controlled lipids even back as far as 2013. We recommend a repeat hepatic profile at follow-up within 3 to 5 days and lipid panel outpatient with your primary care physician at your annual follow-up and specifically not until you have completely resolved your current acute illness. -- Please follow-up with primary care physician within 3 to 5 days. Discharge Orders/Prescriptions Prescriptions: New acetaminophen 325 mg Tablet 650 mg PO Q6H PRN PRN (Reason: Pain 1-10 Or Fever) Qty: 0 0RF Referrals / Follow Up: Mark Cantu MD [Primary Care Provider] - (Please follow-up within 3-5 days to review admission and also have repeat BMP to assure electrolytes remain appropriate.) Walter Mckeon MD [Med Staff - Active Staff] - (Follow-up within 2-4 weeks or earlier if concerns arise.) Disposition Disposition (needs filled in before D/C Order can be placed): Home, Self Care 11/04/24 1426 Cheryl Mixon MD CC: Dr. Mark Cantu MD; Dr. Courtney Herring, ; Dr. Danny Byrd MD; Dr. Walter Mckeon MD Signed Normal [facility] CBC W/Diff, Automatedon 12-12 15-2023 Absolute Lymph 1.79 X10 3/uL Normal 0.83-4.51 [facility] Comment on above: Performed By: #### L 504.2610, L501.9520, L500.4050, L501.2300, L501.5200, L100.0100 #### [facility] [address] [place], [address] Absolute Neut 5.6 X10 3/uL Normal 2.0-7.7 [facility] Comment on above: Performed By: #### L 504.2610, L501.9520, L500.4050, L501.2300, L501.5200, L100.0100 #### [facility] [address] [place], [address] Basophils/100 WBC (Bld) 0.3 % Normal 0-1 [facility] Comment on above: Performed By: #### L 504.2610, L501.9520, L500.4050, L501.2300, L501.5200, L100.0100 #### [facility] [address] [place], [address] Eosinophils/100 WBC (Bld) 0.6 % Normal 0-5 [facility] Comment on above: Performed By: #### L 504.2610, L501.9520, L500.4050, L501.2300, L501.5200, L100.0100 #### [facility] [address] [place], [address] Erythrocyte distribution width (RBC) [Ratio] 12.9 % Normal 11.6-14.6 [facility] Comment on above: Performed By: #### L 504.2610, L501.9520, L500.4050, L501.2300, L501.5200, L100.0100 #### [facility] [address] [place], [address] Hematocrit (Bld) [Volume fraction] 43.2 % Normal 40-54 [facility] Comment on above: Performed By: #### L 504.2610, L501.9520, L500.4050, L501.2300, L501.5200, L100.0100 #### [facility] [address] [place], [address] Hemoglobin (Bld) [Mass/Vol] 14.4 g/dL Normal 13.0-16.5 [facility] Comment on above: Performed By: #### L 504.2610, L501.9520, L500.4050, L501.2300, L501.5200, L100.0100 #### [facility] [address] [place], [address] IG% 0.100 Normal 0.0-0.9 [facility] Comment on above: Result Comment: IG% - Immature Granulocytes (promyelocytes, myelocytes and metamyelocytes) > 1% indicates that a LEFT SHIFT is Present. Performed By: #### L 504.2610, L501.9520, L500.4050, L501.2300, L501.5200, L100.0100 #### [facility] [address] [place], [address] Lymphocytes/100 WBC (Bld) 20.8 % Normal 19-41 [facility] Comment on above: Performed By: #### L 504.2610, L501.9520, L500.4050, L501.2300, L501.5200, L100.0100 #### [facility] [address] [place], [address] MCH (RBC) [Entitic mass] 30.8 pg Normal 27.0-32.0 [facility] Comment on above: Performed By: #### L 504.2610, L501.9520, L500.4050, L501.2300, L501.5200, L100.0100 #### [facility] [address] [place], [address] MCHC (RBC) [Mass/Vol] 33.3 g/dL Normal 32-36 [facility] Comment on above: Performed By: #### L 504.2610, L501.9520, L500.4050, L501.2300, L501.5200, L100.0100 #### [facility] [address] [place], [address] MCV (RBC) [Entitic vol] 92.5 fL Normal 80-94 [facility] Comment on above: Performed By: #### L 504.2610, L501.9520, L500.4050, L501.2300, L501.5200, L100.0100 #### [facility] [address] [place], [address] Monocytes/100 WBC (Bld) 12.8 % High 0-10 [facility] Comment on above: Performed By: #### L 504.2610, L501.9520, L500.4050, L501.2300, L501.5200, L100.0100 #### [facility] [address] [place], [address] Neutrophils/100 WBC (Bld) 65.4 % Normal 47-70 [facility] Comment on above: Performed By: #### L 504.2610, L501.9520, L500.4050, L501.2300, L501.5200, L100.0100 #### [facility] [address] [place], [address] Nucleated RBC (Bld) [#/Vol] 0 10*3/uL Normal 0-5 [facility] Comment on above: Performed By: #### L 504.2610, L501.9520, L500.4050, L501.2300, L501.5200, L100.0100 #### [facility] [address] [place], [address] Platelet mean volume (Bld) [Entitic vol] 10.7 fL Normal 6.2-12.0 [facility] Comment on above: Performed By: #### L 504.2610, L501.9520, L500.4050, L501.2300, L501.5200, L100.0100 #### [facility] [address] [place], [address] Platelets (Bld) [#/Vol] 258 10*3/uL Normal 150-450 [facility] Comment on above: Performed By: #### L 504.2610, L501.9520, L500.4050, L501.2300, L501.5200, L100.0100 #### [facility] [address] [place], [address] RBC (Bld) [#/Vol] 4.67 10*6/uL Normal 4.6-6.2 [facility] Comment on above: Performed By: #### L 504.2610, L501.9520, L500.4050, L501.2300, L501.5200, L100.0100 #### [facility] [address] [place], [address] RDW SD 43.5 fl Normal 35.1-43.9 [facility] Comment on above: Performed By: #### L 504.2610, L501.9520, L500.4050, L501.2300, L501.5200, L100.0100 #### [facility] [address] [place], [address] WBC (Bld) [#/Vol] 8.6 10*3/uL Normal 4.4-11.0 [facility] Comment on above: Performed By: #### L 504.2610, L501.9520, L500.4050, L501.2300, L501.5200, L100.0100 #### [facility] [address] [place], [address] Comprehensive Metabolic Prof ilon 11-03-2024 Albumin [Mass/Vol] 3.3 g/dL Normal 3.2-5.0 [facility] Comment on above: Performed By: #### L 504.2610, L501.9520, L500.4050, L501.2300, L501.5200, L100.0100 #### [facility] [address] [place], [address] Albumin/Globulin [Mass ratio] 0.9 {ratio} Normal 0.9-2.4 [facility] Comment on above: Performed By: #### L 504.2610, L501.9520, L500.4050, L501.2300, L501.5200, L100.0100 #### [facility] [address] [place], [address] ALK P 61 U/L Normal 45-117 [facility] Comment on above: Performed By: #### L 504.2610, L501.9520, L500.4050, L501.2300, L501.5200, L100.0100 #### [facility] [address] [place], [address] ALT [Catalytic activity/Vol] 110 U/L High 16-61 [facility] Comment on above: Performed By: #### L 504.2610, L501.9520, L500.4050, L501.2300, L501.5200, L100.0100 #### [facility] [address] [place], [address] AST [Catalytic activity/Vol] 51 U/L High 15-37 [facility] Comment on above: Performed By: #### L 504.2610, L501.9520, L500.4050, L501.2300, L501.5200, L100.0100 #### [facility] [address] [place], [address] Bilirubin [Mass/Vol] 0.80 mg/dL Normal 0.20-1.00 [facility] Comment on above: Result Comment: For patients on eltrombopag therapy, use of Dimension [place] TBIL is not recommended. Performed By: #### L 504.2610, L501.9520, L500.4050, L501.2300, L501.5200, L100.0100 #### [facility] [address] [place], [address] BUN/CRE 14.3 RATIO Normal 10-20 [facility] Comment on above: Performed By: #### L 504.2610, L501.9520, L500.4050, L501.2300, L501.5200, L100.0100 #### [facility] [address] [place], [address] CA,Total 8.5 mg/dL Normal 8.5-10.1 [facility] Comment on above: Performed By: #### L 504.2610, L501.9520, L500.4050, L501.2300, L501.5200, L100.0100 #### [facility] [address] [place], [address] Chloride [Moles/Vol] 105 mmol/L Normal 98-107 [facility] Comment on above: Performed By: #### L 504.2610, L501.9520, L500.4050, L501.2300, L501.5200, L100.0100 #### [facility] [address] [place], [address] CO2 [Moles/Vol] 26.0 mmol/L Normal 21.0-32.0 [facility] Comment on above: Performed By: #### L 504.2610, L501.9520, L500.4050, L501.2300, L501.5200, L100.0100 #### [facility] [address] [place], [address] Creatinine [Mass/Vol] 0.84 mg/dL Normal 0.70-1.30 [facility] Comment on above: Result Comment: The validity of the calculated GFR GFRAA in patients over 70 years has not been determined. Clinical correlation is essential. Performed By: #### L 504.2610, L501.9520, L500.4050, L501.2300, L501.5200, L100.0100 #### [facility] [address] [place], [address] ECRCL 140.52 ml/min Normal [facility] Comment on above: Performed By: #### L 504.2610, L501.9520, L500.4050, L501.2300, L501.5200, L100.0100 #### [facility] [address] [place], [address] EST GFR - AA 128 mL/min Normal >60 [facility] Comment on above: Result Comment: Afri can Lao GFR Calc Performed By: #### L 504.2610, L501.9520, L500.4050, L501.2300, L501.5200, L100.0100 #### [facility] [address] [place], [address] GAP 8 Normal 5-15 [facility] Comment on above: Performed By: #### L 504.2610, L501.9520, L500.4050, L501.2300, L501.5200, L100.0100 #### [facility] [address] [place], [address] GFR/1.73 sq M.predicted among non-blacks MDRD (S/P/Bld) [Vol rate/Area] 106 mL/min/{1.73_m2} Normal >60 [facility] Comment on above: Result Comment: Non- GFR Calc Performed By: #### L 504.2610, L501.9520, L500.4050, L501.2300, L501.5200, L100.0100 #### [facility] [address] [place], [address] Globulin (S) [Mass/Vol] 3.8 g/dL Normal 2.2-4.2 [facility] Comment on above: Performed By: #### L 504.2610, L501.9520, L500.4050, L501.2300, L501.5200, L100.0100 #### [facility] [address] [place], [address] Glucose [Mass/Vol] 92 mg/dL Normal 74-106 [facility] Comment on above: Performed By: #### L 504.2610, L501.9520, L500.4050, L501.2300, L501.5200, L100.0100 #### [facility] [address] [place], [address] Potassium [Moles/Vol] 3.2 mmol/L Low 3.5-5.1 [facility] Comment on above: Performed By: #### L 504.2610, L501.9520, L500.4050, L501.2300, L501.5200, L100.0100 #### [facility] [address] [place], [address] Sodium [Moles/Vol] 139 mmol/L Normal 136-145 [facility] Comment on above: Performed By: #### L 504.2610, L501.9520, L500.4050, L501.2300, L501.5200, L100.0100 #### [facility] [address] [place], [address] T PROT 7.1 g/dL Normal 6.4-8.2 [facility] Comment on above: Performed By: #### L 504.2610, L501.9520, L500.4050, L501.2300, L501.5200, L100.0100 #### [facility] [address] [place], [address] Urea nitrogen [Mass/Vol] 12 mg/dL Normal 7-18 [facility] Comment on above: Performed By: #### L 504.2610, L501.9520, L500.4050, L501.2300, L501.5200, L100.0100 #### [facility] [address] [place], [address] Consultation - Surgicalon Consultation - Surgical [facility] Medical Records Department [address] [place] [address] Consultation - Surgical 11/03/24 0824 MR#: [id number] Acct: [id number] Name: MG ROACH Rep #: [id number] : 1980 44 From: Payal KAY PA-C PCP: Dr. Mark Cantu MD Status:ADM IN [id number] Walter Mckeon MD on 11/03/24 at 1343 Addendum Patient seen and examined. Agree with assessment and plan as outlined by ELIZA Alejandro. Patient is a 44-year-old male with complaints of abdominal pain nausea and vomiting as well as some initial diarrhea. Initially it was thought that his symptoms were gastroenteritis related however there was also concern about a mechanical small bowel obstruction. Small bowel follow-through was performed today and has quickly reached the colon and as a result has produced a copious amount of flatus and stool. This seems to be improving his symptoms as well. At this point have no surgical intervention. My plan is to remove the NG tube and have him start a clear liquid diet. We will continue to monitor closely and advise accordingly. 11/03/24 1343 Cosigner Signature (if applicable): cc: Dr. Mark Cantu MD * Signed Assessment Plan Assessment/Plan (1) SBO (small bowel obstruction): PLAN: I have been consulted in conjunction with Dr. Mckeon. He will independently evaluate this patient. Patient is a 44 y/o M who presents with a 4 day history of nausea, vomiting, diarrhea and abdominal pain. CT scan of ab/pel demonstrated small bowel obstruction. Ng tube was placed and removed approximately 2275 cc throughout yesterday and last night. Recommend small bowel follow- through today with Gastrografin through NG tube with KUB immediately, 1H and 3H. No surgical intervention planned at this time. Will determine future treatment plan once the small bowel follow- through is completed. Patient has had the opportunity to ask and have questions answered. Plan for conservative measures and proceed with surgical intervention only if symptoms worsen. Patient verbally understands and agrees with the plan. Thank you for allowing us to participate in this patient's care. HPI Consult Data Date of Consult: 11/03/24 HPI Narrative Reason for Consultation: Small bowel obstruction HPI Narrative: MG ROACH, is a 44 M who presents with a 4 day history of nausea, vomiting and abdominal pain. Patient states on Sunday night he had a pot luck dinner at [facility]. He notes over eating there. He stated he had a lot of guacamole and little cocktail hot dogs. He states there was no raw food or under cooked food and no one else that was there was sick. He stated he woke up and started vomiting every hour for the entire day. he noted by Sunday he was feeling better and only had some abdominal pressure. He tried eating saltine crackers and by Sunday evening, he felt worse again. Sunday morning he felt better and was able to eat a little something. Patient stated throughout the day Sunday his symptoms returned and he went to urgent care, where he was sent to the ED. He states his last bowel movement was on Sunday. He states he had diarrhea on and has not had any bowel movement since. He denies any previous abdominal surgeries. He notes taking a supplement daily otherwise no medications routinely. He notes recently having a routine check up with his PCP on Sunday without any concerns. He denies having previous small bowel issues. CT scan ab/pel demonstrating small bowel dilation, bilateral pneumonia, trace free fluid in the pelvis. NG tube was placed on 11/02/24. KUB demonstrated tip in the stomach. Small bowel dilation may suggest bowel obstruction. [facility] Medical History no medical history Home Medications ???Medication ???Instructions ???Recorded ???Last Taken ???Type No Known/Unobtainable [No Known 11/03/13 Unknown History Home Medications] Allergy/AdvReac Type Severity Reaction Status Date / Time No Known Allergies Allergy Verified 11/01/24 15:21 Family History (Updated 11/01/24 @ 22:[address] Danny Byrd MD) Other Heart disease Family History no significant family his Surgical History no surgical history Social History Smoking Status: Former smoker ROS Constitutional Constitutional: Reports systems reviewed and no addt'l complaints, except as documented Eyes Eyes: Reports systems reviewed and no addt'l complaints, except as documented ENT HEENT: Reports systems reviewed and no addt'l complaints, except as documented Cardiovascular Cardiovascular: Reports systems reviewed and no addt'l complaints, except as documented Respiratory/Chest Respiratory/Chest: Reports systems reviewed and no addt'l complaints, exce (more content not included)... Normal [facility] ENTERIC PATHOGEN PANEL STOOL on 11-03-2024 EP PANEL Normal Reference Ran ge = Not Detected GI pathogens Pnl Stl CHARLENE+probe Nucleic acid amplification test method GI pathogens Pnl Stl CHARLENE+probe Further studies to follow from [facility]. GI pathogens Pnl Stl CHARLENE+probe Shiga Toxin 1 detected. Shiga Toxin is most commonly associated with Shiga-Toxin producing E. coli. Antibiotic treatment is not recommended since it may enhance toxin release and increase risk of HUS. This is an amplified DNA test which makes it both specific and sensitive. GI pathogens Pnl Stl CHARLENE+probe Norovirus Gl/Gll detected. Contact precautions should be followed for these patients and limit exposure to others since spread of disease is common. Treatment is often not needed for this pathogen. This is an amplified DNA test which makes it both specific and sensitive. GI pathogens Pnl Stl CHARLENE+probe Copy of report sent to Infection Control Printer [id number] 11/03/24 4171 TOMASZ. GI pathogens Pnl Stl CHARLENE+probe RESULTS CALLED TO OREN HERNANDEZ 11/03/24 6499 Renetta Segura. REPORT READ BACK BY . CAMPYLOBACTER Not Detected Norovirus A Norovirus Detected A Rotavirus Not Detected Salmonella Not Detected Shiga Toxin A Shiga Toxin 1 Detected A Shigella sp. Not Detected VIBRIO Not Detected Yersinia Not Detected Shiga Toxin 1 Norovirus Normal [facility] Comment on above: Performed By: #### M 100.637 ####[facility] [address] [place], [address] LDHon 11-03-2024 LDH 172 U/L Normal 87-241 [facility] Comment on above: Performed By: #### L 504.2610, L501.9520, L500.4050, L501.2300, L501.5200, L100.0100 ####[facility] [address] [place], [address] Magnesiumon 11-03-2024 Magnesium [Mass/Vol] 2.4 mg/dL Normal 1.6-2.6 [facility] Comment on above: Performed By: #### L 504.2610, L501.9520, L500.4050, L501.2300, L501.5200, L100.0100 ####[facility] [address] [place], [address] Phosphoruson 11-03-2024 Phosphate [Mass/Vol] 3.1 mg/dL Normal 2.5-4.9 [facility] Comment on above: Performed By: #### L 504.2610, L501.9520, L500.4050, L501.2300, L501.5200, L100.0100 #### [facility] [address] [facility] [place], [address] Small Bowel Series Onlyon Small Bowel Series Only [facility] Imaging Services [address] [place] [address] Small Bowel Series Only MR#: [id number] Acct: [id number] Name: MG ROACH Rep #: [id number] : 1980 M 44 From: Carmen trevino MD PCP: Dr. Mark Cantu MD Status: ADM IN Study: Small Bowel Series Only Date of Exam: 11/03/24 Exam# [id number] Ordering Dr: Payal Kingston :[id number] HISTORY: Small bowel obstruction -- Gastrografin; KUB immed, 1H, and 3H TECHNIQUE: Gastrografin oral contrast was administered to the patient. Immediate, 1 hour, and 3 hour films obtained. 5 images. COMPARISON: Prior day. FINDINGS: Nasogastric tube tip at the level of the proximal duodenum. Multiple mildly dilated small bowel loops on the records supervisor image. Injection of nasogastric tube with contrast entering multiple dilated small bowel loops in the abdomen. Contrast identified in the right colon on the last image, which is labeled 60 minutes. Scattered stool and air throughout the colon down to the level of the rectum. RAD/Small Bowel Series Only IMPRESSION: Partial small bowel obstruction with mildly dilated small bowel loops and contrast in the right colon on the 60 minute image. Electronically Signed: Carmen Byers MD at 11:35 EST Reading Location ID and State: [facility] / [place] Tel , Service support , CC: MILEY Kingston; Dr. Mark Cantu MD English Tutor: Signed Normal [facility] Thyroid Stim Hormone (TSH)on 11-03-2024 TSH 5.370 uIU/mL High 0.358-3.740 [facility] Comment on above: Performed By: #### L 504.2610, L501.9520, L500.4050, L501.2300, L501.5200, L100.0100 ####[facility] [address] [facility]. [place], [place], [id number] Abdomen Single View (Portabl e)on 11-02-2024 Abdomen Single View (Portable) [facility] Imaging Services [address] [place], [place] [id number] Abdomen Single View (Portable) MR#: [id number] Acct: [id number] Name: MG ROACH Rep #: [id number] : 1980 M 44 From: Sree Mccarty PCP: Dr. Mark Cantu MD Status: ADM KAYODE Study: Abdomen Single View (Portable) Date of Exam: 1 01/03/24 Exam# [id number] Ordering Dr: Courtney Herring DO :[id number] STUDY: XR Abdomen 1 View 11/02/2024 5:41 PM REASON FOR EXAM: Male, 44 years old. ABDOMINAL PAIN NGT -- KUB with both diaphragms for NG/OG Verification TECHNIQUE: XR Abdomen 1 View COMPARISON: None FINDINGS: Normal visualized lung bases. There are dilated loops of the small intestine with a non-distended colon consistent with a small bowel obstruction. There is a feeding tube/ nasogastric tube noted. The tip is in the region of the stomach. There is no demonstrated free abdominal air. The visualized liver, spleen and kidneys are grossly normal in size and morphology. Normal soft tissue structures. Normal visualized osseous structures. RAD/Abdomen Single View (Portable) IMPRESSION: There is a feeding tube/ nasogastric tube noted. The tip is in the region of the stomach. Small bowel dilation may suggest small bowel obstruction. Electronically Signed: Sree Ann MD at 18:15 EST , CC: Dr. Mark Cantu MD; Dr. Courtney Herring DO English Tutor: Signed Normal [facility] Abdomen/Pelvis without Conto n 11-02-2024 Abdomen/Pelvis without Cont [facility] Imaging Services [address] [place] [address] Abdomen/Pelvis without Cont MR#: [id number] Acct: [id number] Name: MG ROACH Rep #: [id number] : 1980 M 44 From: Sree Mccarty PCP: Dr. Mark Cantu MD Status: ADM KAYODE Study: Abdomen/Pelvis without Cont Date of Exam: 10/13 01/05 Exam# [id number] Ordering Dr: Courtney Herring DO :[id number] STUDY: CT Abdomen And Pelvis W/O Contrast Injection 11/02/2024 5:21 PM REASON FOR EXAM: Male, 44 years old. ABDOMINAL PAIN Ileus vs SBO TECHNIQUE: Transaxial images were obtained without oral contrast, and without intravenous contrast. Individualized dose optimization techniques were used for this CT. COMPARISON: Study done yesterday FINDINGS: There is bilateral infiltrate/ atelectasis. The visualized portions of the heart are within normal limits. Unremarkable liver. Unremarkable gallbladder and extrahepatic biliary system. Unremarkable spleen. Unremarkable pancreas. Unremarkable bilateral adrenal glands. No acute findings of the right kidney. No acute findings of the left kidney. Unremarkable visualized stomach. There are dilated loops of the small intestine with a non-distended colon consistent with a small bowel obstruction. There are multiple colonic diverticula consistent with diverticulosis. There is non-visualization of the appendix. Dilated small bowel loops have a stairstep pattern consistent for small bowel obstruction. There are no acute findings of the abdominal aorta. Unremarkable inferior vena cava. Unremarkable urinary bladder. Trace free fluid in the pelvis. There is an umbilical hernia containing fat. Unremarkable osseous structures. CT/Abdomen/Pelvis without Cont IMPRESSION: (NOT LISTED IN ORDER OF SIGNIFICANCE) Small bowel obstruction visualized. No evidence for transition point. The degree of small bowel dilation is worse. Bilateral pneumonia. Trace free fluid in the pelvis. Other findings as above. Electronically Signed: Sree Ann MD at 17:25 EST , CC: Dr. Mark Cantu MD; Dr. Courtney Herring DO English Tutor: Signed Normal [facility] Basic Metabolic Profile (BMP )on 11-02-2024 BUN/CRE 14.5 RATIO Normal 10-20 [facility] Comment on above: Performed By: #### L 500.2500, L100.0100 #### [facility] [address] [place], [address] CA,Total 8.5 mg/dL Normal 8.5-10.1 [facility] Comment on above: Performed By: #### L 500.2500, L100.0100 #### [facility] [address] [place], [address] Chloride [Moles/Vol] 101 mmol/L Normal 98-107 [facility] Comment on above: Performed By: #### L 500.2500, L100.0100 #### [facility] [address] [place], [address] CO2 [Moles/Vol] 25.0 mmol/L Normal 21.0-32.0 [facility] Comment on above: Performed By: #### L 500.2500, L100.0100 #### [facility] [address] [place], [address] Creatinine [Mass/Vol] 0.83 mg/dL Normal 0.70-1.30 [facility] Comment on above: Result Comment: The validity of the calculated GFR GFRAA in patients over 70 years has not been determined. Clinical correlation is essential. Performed By: #### L 500.2500, L100.0100 #### [facility] [address] [place], [address] ECRCL 142.22 ml/min Normal [facility] Comment on above: Performed By: #### L 500.2500, L100.0100 #### [facility] [address] [place], [address] EST GFR - AA 130 mL/min Normal >60 [facility] Comment on above: Result Comment: Afri can Lao GFR Calc Performed By: #### L 500.2500, L100.0100 #### [facility] [address] [place], [address] GAP 9 Normal 5-15 [facility] Comment on above: Performed By: #### L 500.2500, L100.0100 #### [facility] [address] [place], [address] GFR/1.73 sq M.predicted among non-blacks MDRD (S/P/Bld) [Vol rate/Area] 108 mL/min/{1.73_m2} Normal >60 [facility] Comment on above: Result Comment: Non- GFR Calc Performed By: #### L 500.2500, L100.0100 #### [facility] [address] [place], [address] Glucose [Mass/Vol] 111 mg/dL High 74-106 [facility] Comment on above: Result Comment: Fast ing Glucose result from 100 to 125 mg/dL suggests IMPAIRED HOMEOSTASIS per A.D.A. criteria. Performed By: #### L 500.2500, L100.0100 #### [facility] [address] [place], [address] Potassium [Moles/Vol] 3.5 mmol/L Normal 3.5-5.1 [facility] Comment on above: Performed By: #### L 500.2500, L100.0100 #### [facility] [address] [place], [address] Sodium [Moles/Vol] 136 mmol/L Normal 136-145 [facility] Comment on above: Performed By: #### L 500.2500, L100.0100 #### [facility] [address] [place], [address] Urea nitrogen [Mass/Vol] 12 mg/dL Normal 7-18 [facility] Comment on above: Performed By: #### L 500.2500, L100.0100 #### [facility] [address] [place], [address] CBC W/Diff, Automatedon 12-2 -2023 Absolute Lymph 1.39 X10 3/uL Normal 0.83-4.51 [facility] Comment on above: Performed By: #### L 500.2500, L100.0100 #### [facility] [address] [place], [address] Absolute Neut 7.9 X10 3/uL High 2.0-7.7 [facility] Comment on above: Performed By: #### L 500.2500, L100.0100 #### [facility] [address] [place], [address] Basophils/100 WBC (Bld) 0.2 % Normal 0-1 [facility] Comment on above: Performed By: #### L 500.2500, L100.0100 #### [facility] [address] [place], [address] Eosinophils/100 WBC (Bld) 0.2 % Normal 0-5 [facility] Comment on above: Performed By: #### L 500.2500, L100.0100 #### [facility] [address] [place], [address] Erythrocyte distribution width (RBC) [Ratio] 12.8 % Normal 11.6-14.6 [facility] Comment on above: Performed By: #### L 500.2500, L100.0100 #### [facility] [address] [place], [address] Hematocrit (Bld) [Volume fraction] 43.3 % Normal 40-54 [facility] Comment on above: Performed By: #### L 500.2500, L100.0100 #### [facility] [address] [place], [address] Hemoglobin (Bld) [Mass/Vol] 14.4 g/dL Normal 13.0-16.5 [facility] Comment on above: Performed By: #### L 500.2500, L100.0100 #### [facility] [address] [place], [address] IG% 0.500 Normal 0.0-0.9 [facility] Comment on above: Result Comment: IG% - Immature Granulocytes (promyelocytes, myelocytes and metamyelocytes) > 1% indicates that a LEFT SHIFT is Present. Performed By: #### L 500.2500, L100.0100 #### [facility] [address] [place], [address] Lymphocytes/100 WBC (Bld) 13.2 % Low 19-41 [facility] Comment on above: Performed By: #### L 500.2500, L100.0100 #### [facility] [address] [place], [address] MCH (RBC) [Entitic mass] 30.8 pg Normal 27.0-32.0 [facility] Comment on above: Performed By: #### L 500.2500, L100.0100 #### [facility] [address] [place], [address] MCHC (RBC) [Mass/Vol] 33.3 g/dL Normal 32-36 [facility] Comment on above: Performed By: #### L 500.2500, L100.0100 #### [facility] [address] [place], [address] MCV (RBC) [Entitic vol] 92.5 fL Normal 80-94 [facility] Comment on above: Performed By: #### L 500.2500, L100.0100 #### [facility] [address] [place], [address] Monocytes/100 WBC (Bld) 11.0 % High 0-10 [facility] Comment on above: Performed By: #### L 500.2500, L100.0100 #### [facility] [address] [place], [address] Neutrophils/100 WBC (Bld) 74.9 % High 47-70 [facility] Comment on above: Performed By: #### L 500.2500, L100.0100 #### [facility] [address] [place], [address] Nucleated RBC (Bld) [#/Vol] 0 10*3/uL Normal 0-5 [facility] Comment on above: Performed By: #### L 500.2500, L100.0100 #### [facility] [address] [place], [address] Platelet mean volume (Bld) [Entitic vol] 10.9 fL Normal 6.2-12.0 [facility] Comment on above: Performed By: #### L 500.2500, L100.0100 #### [facility] [address] [place], [address] Platelets (Bld) [#/Vol] 239 10*3/uL Normal 150-450 [facility] Comment on above: Performed By: #### L 500.2500, L100.0100 #### [facility] [address] [place], [address] RBC (Bld) [#/Vol] 4.68 10*6/uL Normal 4.6-6.2 [facility] Comment on above: Performed By: #### L 500.2500, L100.0100 #### [facility] [address] [place], [address] RDW SD 43.2 fl Normal 35.1-43.9 [facility] Comment on above: Performed By: #### L 500.2500, L100.0100 #### [facility] [address] [place], [address] WBC (Bld) [#/Vol] 10.5 10*3/uL Normal 4.4-11.0 [facility] Comment on above: Performed By: #### L 500.2500, L100.0100 #### [facility] [address] [place], [address] Urine Cultureon 11-02-2024 URC Culture exhibits no growth. Normal [facility] Comment on above: Performed By: #### M 100.2200 ####[facility] [address] [place], [address] Abdomen/Pelvis W IV Cont ONL Yon 11-01-2024 Abdomen/Pelvis W IV Cont ONLY [facility] Imaging Services [address] [place] [address] Abdomen/Pelvis W IV Cont ONLY MR#: [id number] Acct: [id number] Name: MG ROACH Rep #: [id number] : 1980 M 44 From: Meng rob DO PCP: Dr. Mark Cantu MD Status: [facility] Study: Abdomen/Pelvis W IV Cont ONLY Date of Exam: Exam# [id number] Ordering Dr: James Knox MD ADDENDUM by Dr. Meng Duran DO on 11/01/24 at 1703 :[id number] EXAM: CT ABDOMEN AND PELVIS WITH INTRAVENOUS CONTRAST CLINICAL INDICATION: LLQ abd pain TECHNIQUE: Helically acquired images were obtained of the abdomen and pelvis with intravenous contrast. This CT exam was performed using one or more of the following dose reduction techniques: automated exposure control, adjustment of the mA and/or kV according to patient size, and/or use of iterative reconstruction technique. CONTRAST: IV 100mL Isovue-370 COMPARISON: No relevant prior studies available. FINDINGS: LOWER THORAX: Minimal dependent atelectasis in the basilar lungs. No cardiomegaly. No significant pericardial effusion. ABDOMEN: LIVER: No significant abnormality. Homogeneous. No focal mass. GALLBLADDER AND BILE DUCTS: No significant abnormality. No calcified gallstones. No gallbladder distention or wall edema. No intra- or extrahepatic biliary ductal dilation. PANCREAS: No significant abnormality. No focal cystic or solid mass. SPLEEN: No significant abnormality. Normal size without focal cystic or solid mass. ADRENALS: No significant abnormality. No nodules. KIDNEYS AND URETERS: No significant abnormality. Normal renal size and position. No hydronephrosis. STOMACH AND BOWEL: Multiple loops of dilated small bowel are present with air-fluid levels most consistent with small bowel obstruction without discrete evidence of transition point. Colonic diverticulosis without evidence of acute diverticulitis. PELVIS: APPENDIX: No evidence of acute appendicitis. BLADDER: No significant abnormality. REPRODUCTIVE: Normal as visualized. No mass. ABDOMEN and PELVIS: INTRAPERITONEAL SPACE: No significant abnormality. No ascites or other fluid collection. No free air. BONES/JOINTS: No significant abnormality. No suspicious lytic or blastic abnormality. SOFT TISSUES: No significant abnormality. No discrete abdominal or pelvic wall hernia. VASCULATURE: No significant abnormality. Abdominal aorta is non-dilated. LYMPH NODES: Multiple prominent mesenteric lymph nodes are identified, nonspecific. 11/01/24 1703 Date cc: Dr. James Knox MD; Dr. Mark Cantu MD * Signed ADDENDUM by Dr. Meng Duran DO on 11/01/[address]/Abdomen/Pelvis W IV Cont ONLY IMPRESSION: 1. Multiple loops of dilated small bowel are present with air-fluid levels most consistent with small bowel obstruction without discrete evidence of transition point. 2. Colonic diverticulosis without evidence of acute diverticulitis. N.B. : The above Results were Read Back by Meng Duran DO to James Knox MD, and understanding confirmed on 11/01/2024 17:12:24 (ET). Electronically Signed: Meng Duran DO at 17:03 EST , 11/01/241718 Date cc: Dr. James Knox MD; Dr. Mark Cantu MD * Signed We are attempting to reach an attending provider to discuss findings. An addendum with communication details will be sent when the communication is complete. :[id number] EXAM: CT ABDOMEN AND PELVIS WITH INTRAVENOUS CONTRAST CLINICAL INDICATION: LLQ abd pain TECHNIQUE: Helically acquired images were obtained of the abdomen and pelvis with intravenous contrast. This CT exam was performed using one or more of the following dose reduction techniques: automated exposure control, adjustment of the mA and/or kV according to patient size, and/or use of iterative reconstruction technique. CONTRAST: IV 100mL Isovue-370 COMPARISON: No relevant prior studies available. FINDINGS: LOWER THORAX: Minimal dependent atelectasis in the basilar lungs. No cardiomegaly. No significant pericardial effusion. ABDOMEN: LIVER: No significant abnormality. Homogeneous. No focal mass. GALLBLADDER AND BILE DUCTS: No significant abnormality. No calcified gallstones. No gallbladder distention or wall edema. No intra- or extrahepatic biliary ductal dilation. PANCREAS: No significant abnormality. No focal cystic or solid mass. SPLEEN: No significant abnormality. Normal size without focal cystic or solid mass. ADRENALS: No significant abnormality. No nodules. KIDNEYS AND URETERS: No si (more content not included)... Normal [facility] Basic Metabolic Profile (BMP )on 11-01-2024 BUN/CRE 11.3 RATIO Normal - [facility] Comment on above: Performed By: #### L 100.0100, L500.2500 ####[facility] [address] [place], [address] CA,Total 9.0 mg/dL Normal 8.5-10.1 [facility] Comment on above: Performed By: #### L 100.0100, L500.2500 ####[facility] [address] [place], [address] Chloride [Moles/Vol] 103 mmol/L Normal 98-107 [facility] Comment on above: Performed By: #### L 100.0100, L500.2500 ####[facility] [address] [place], [address] CO2 [Moles/Vol] 30.0 mmol/L Normal 21.0-32.0 [facility] Comment on above: Performed By: #### L 100.0100, L500.2500 ####[facility] [address] [place], [address] Creatinine [Mass/Vol] 0.98 mg/dL Normal 0.70-1.30 [facility] Comment on above: Result Comment: The validity of the calculated GFR GFRAA in patients over 70 years has not been determined. Clinical correlation is essential. Performed By: #### L 100.0100, L500.2500 ####[facility] [address] [place], [address] EST GFR - AA 108 mL/min Normal >60 [facility] Comment on above: Result Comment: Afri can Lao GFR Calc Performed By: #### L 100.0100, L500.2500 ####[facility] [address] [place], [address] GAP 4 Low 5-15 [facility] Comment on above: Performed By: #### L 100.0100, L500.2500 ####[facility] [address] [place], [address] GFR/1.73 sq M.predicted among non-blacks MDRD (S/P/Bld) [Vol rate/Area] 89 mL/min/{1.73_m2} Normal >60 [facility] Comment on above: Result Comment: Non- GFR Calc Performed By: #### L 100.0100, L500.2500 ####[facility] [address] [place], [address] Glucose [Mass/Vol] 111 mg/dL High 74-106 [facility] Comment on above: Result Comment: Fast ing Glucose result from 100 to 125 mg/dL suggests IMPAIRED HOMEOSTASIS per A.D.A. criteria. Performed By: #### L 100.0100, L500.2500 ####[facility] [address] [place], [address] Potassium [Moles/Vol] 3.5 mmol/L Normal 3.5-5.1 [facility] Comment on above: Performed By: #### L 100.0100, L500.2500 ####[facility] [address] [place], [address] Sodium [Moles/Vol] 137 mmol/L Normal 136-145 [facility] Comment on above: Performed By: #### L 100.0100, L500.2500 ####[facility] [address] [place], [address] Urea nitrogen [Mass/Vol] 11 mg/dL Normal 7-18 [facility] Comment on above: Performed By: #### L 100.0100, L500.2500 ####[facility] [address] [place], [address] CBC W/Diff, Automatedon 12-2 Absolute Lymph 1.62 X10 3/uL Normal 0.83-4.51 [facility] Comment on above: Performed By: #### L 100.0100, L500.2500 ####[facility] [address] [place], [address] Absolute Neut 6.6 X10 3/uL Normal 2.0-7.7 [facility] Comment on above: Performed By: #### L 100.0100, L500.2500 ####[facility] [address] [place], [address] Basophils/100 WBC (Bld) 0.3 % Normal 0-1 [facility] Comment on above: Performed By: #### L 100.0100, L500.2500 ####[facility] [address] [place], [address] Eosinophils/100 WBC (Bld) 0.9 % Normal 0-5 [facility] Comment on above: Performed By: #### L 100.0100, L500.2500 ####[facility] [address] [place], [address] Erythrocyte distribution width (RBC) [Ratio] 12.8 % Normal 11.6-14.6 [facility] Comment on above: Performed By: #### L 100.0100, L500.2500 ####[facility] [address] [place], [address] Hematocrit (Bld) [Volume fraction] 45.9 % Normal 40-54 [facility] Comment on above: Performed By: #### L 100.0100, L500.2500 ####[facility] [address] [place], [address] Hemoglobin (Bld) [Mass/Vol] 15.1 g/dL Normal 13.0-16.5 [facility] Comment on above: Performed By: #### L 100.0100, L500.2500 ####[facility] [address] [place], [address] IG% 0.300 Normal 0.0-0.9 [facility] Comment on above: Result Comment: IG% - Immature Granulocytes (promyelocytes, myelocytes and metamyelocytes) > 1% indicates that a LEFT SHIFT is Present. Performed By: #### L 100.0100, L500.2500 ####[facility] [address] [place], [address] Lymphocytes/100 WBC (Bld) 17.7 % Low 19-41 [facility] Comment on above: Performed By: #### L 100.0100, L500.2500 ####[facility] [address] [place], [address] MCH (RBC) [Entitic mass] 30.8 pg Normal 27.0-32.0 [facility] Comment on above: Performed By: #### L 100.0100, L500.2500 ####[facility] [address] [place], [address] MCHC (RBC) [Mass/Vol] 32.9 g/dL Normal 32-36 [facility] Comment on above: Performed By: #### L 100.0100, L500.2500 ####[facility] [address] [place], [address] MCV (RBC) [Entitic vol] 93.5 fL Normal 80-94 [facility] Comment on above: Performed By: #### L 100.0100, L500.2500 ####[facility] [address] [place], [address] Monocytes/100 WBC (Bld) 9.3 % Normal 0-10 [facility] Comment on above: Performed By: #### L 100.0100, L500.2500 ####[facility] [address] [place], [address] Neutrophils/100 WBC (Bld) 71.5 % High 47-70 [facility] Comment on above: Performed By: #### L 100.0100, L500.2500 ####[facility] [address] [place], [address] Nucleated RBC (Bld) [#/Vol] 0 10*3/uL Normal 0-5 [facility] Comment on above: Performed By: #### L 100.0100, L500.2500 ####[facility] [address] [place], [address] Platelet mean volume (Bld) [Entitic vol] 11.0 fL Normal 6.2-12.0 [facility] Comment on above: Performed By: #### L 100.0100, L500.2500 ####[facility] [address] [place], [address] Platelets (Bld) [#/Vol] 264 10*3/uL Normal 150-450 [facility] Comment on above: Performed By: #### L 100.0100, L500.2500 ####[facility] [address] [place], [address] RBC (Bld) [#/Vol] 4.91 10*6/uL Normal 4.6-6.2 [facility] Comment on above: Performed By: #### L 100.0100, L500.2500 ####[facility] [address] [place], [address] RDW SD 43.7 fl Normal 35.1-43.9 [facility] Comment on above: Performed By: #### L 100.0100, L500.2500 ####[facility] [address] [place], [address] WBC (Bld) [#/Vol] 9.2 10*3/uL Normal 4.4-11.0 [facility] Comment on above: Performed By: #### L 100.0100, L500.2500 ####[facility] [address] [place], [address] CNOVon 11-01-2024 CNOV Office Visit ([facility] ) MG ROACH ([id number]) 1980 M Date Time Provider Department 11/01/24 3:15 PM DONTE BECKHAM UC[facility] During your visit today, we recorded the following information about you: Donte Beckham MD 11/01/2024 3:19 PM Signed [facility] Care Triage Note: Patient presents to the [facility] with complaint of abdominal pain. He had nausea with vomiting and diarrhea starting 2 days ago. He is here because he has been having abdominal pain that is severe at times. He would like to have a serious cause for the pain ruled out. His will take him to the [facility] for further evaluation. Referring Provider: SELF [200] Allergies As of Date: 11/01/2024 Noted Allergy Reaction SEASONAL ALLERGIES 09/03/2014 14 - Other: See Comments Comments: runny nose and sneezing Date Reviewed: 10/28/2024 Reviewed by: Mark Cantu MD - Fully Assessed Primary Visit Diagnosis:Abdominal pain, unspecified abdominal location [R10.9] Prescriptions as of 11/01/2024 - sod mutye-nttgxo-evgeoc bottle (NEILMED SINUS RINSE COMPLETE) pkdv Dissolve one packet or sachet in 8 oz (240 mL) or lukewarm distilled, previously boiled or bottled water. Use as directed per package instructions - fluticasone (FLONASE) 50 mcg/actuation nasal spray Use 2 Sprays in each nostril once daily. Rinse mouth after use. Problem List As Of Date 11/01/2024 Noted Resolved Calf pain [M79.669] 09/03/2014 08/20/2018 Seasonal allergic rhinitis due to pollen [J30.1]08/20/2018 Obesity, Class I, BMI 30-34.9 [E66.811] 08/20/2019 Encounter for screening for diabetes mellitus [*08/15/2021 Ex-smoker [Z87.891] 08/19/2021 Well adult exam [Z00.00] 08/19/2021 Screening for prostate cancer [Z12.5] 08/28/2022 Encounter for lipid screening for cardiovascula*10/28/2024 Hyperlipidemia, mixed [E78.2] 10/28/2024 Encounter Status:Closed by DONTE BECKHAM on 11/01/24 Normal [facility] Emergency Department Summary on 11-01-2024 Emergency Department Summary [facility] Medical Records Department [address] [place] [address] Emergency Department Summary 11/01/24 MR#: [id number] Acct: [id number] Name: MG ROACH Rep #: [id number] : 1980 44 From: James Knox MD PCP: Dr. Mark Cantu MD Status:ADM IN [facility] HPI HPI - GI History of Present Illness Chief Complaint: Abd Pain Informant: patient Abdominal Pain/Flank Pain Onset: Days Context: Gradual Onset Timing: Intermittent Quality: Aching Location: LLQ Current Severity: Mild Maximum Severity: Mild Worsened by: Nothing Relieved by: Nothing Nausea/Vomiting/Emesis GI Symptom: Positive for Nausea and Vomiting Onset: Days Severity: Moderate Diarrhea/Melena/Hematochezia GI Symptom: Positive for Diarrhea Onset: Days Stool Quality: Positive for Watery Severity: Mild Associated Symptoms Associated Symptoms: Negative for Dysuria, Frequency, Hematuria or Urgency Narrative Narrative: Healthy 44-year-old male denies any prior abdominal surgery. Complaining of nausea, vomiting diarrhea for last 3 days since afternoon or evening. The vomiting is improved has been able to hold down p.o. fluids today. But he says it is aching intermittent left lower quadrant abdominal pain is never had before. Denies any trauma. Denies any dysuria. He has had a fever around 100. Prior similar symptoms: No Recent Illness/Hospitalization: No PFSH PFSH Medical History no medical history no medical history Home Medications ???Medication ???Instructions ???Recorded ???Last Taken ???Type No Known/Unobtainable [No Known 11/03/13 Unknown History Home Medications] Allergy/AdvReac Type Severity Reaction Status Date / Time No Known Allergies Allergy Verified 11/01/24 15:21 Family History no significant family his Surgical History no surgical history Social History Smoking Status: Former smoker ROS ROS ED ROS Narrative Nausea, vomiting and diarrhea. Fever. Left lower quadrant abdominal pain. Constitutional Constitutional ED: Denies chills or fever(s) ENT ENT ED: Denies ear pain Cardiovascular Cardiovascular: Denies chest pain Respiratory/Chest Respiratory/Chest: Denies cough or dyspnea Gastrointestinal Gastrointestinal: Reports abdominal pain, diarrhea, nausea and vomiting; Denies constipation or melena Genitourinary Genitourinary ED: Denies dysuria or hematuria Musculoskeletal Musculoskeletal: Denies arthralgias or back pain Integumentary Denies abscess or Abrasions Neurologic Neurologic: Denies headache(s) Psychiatric Psychiatric: Denies anxiety Endocrine Endocrinology: Denies polydipsia or polyphagia Hematologic/Lymphatic Hematologic/Lymphatic: Denies easy bleeding or easy bruising Allergic/Immunologic Allergic/Immunologic ED: Denies mouth swelling, tongue swelling or urticaria EXAM Physical Exam Narrative Exam Narrative: 44-year-old male sitting upright in bed. Vital signs are stable afebrile. No distress. H EENT exam unremarkable. Moist extremities. Neck nontender no lymphadenopathy. Lungs clear bilaterally. Heart regular rate and rhythm rate about 99 no murmur. Chest wall ribs nontender. Abdomen soft nondistended normal bowel sounds without peritoneal signs. Only tenderness is the left lower quadrant. Acute upper left upper quadrant nontender. No hernia or mass. No signs of obstruction. No pulsatile mass. No signs of trauma or bruising. Back nontender. Moving all 4 extremities. Nontender no edema. Normal strength and range of motion. Neurologically is awake and alert. Answering questions and following commands. No focal motor deficits. Const Vital Signs: 11/01/24 15:21 11/01/24 17:20 11/01/24 19:00 Temperature 97.8 F Temperature Source Temporal Pulse Rate 99 78 Respiratory Rate 18 Blood Pressure 141/94 H 138/80 H 128/89 H Blood Pressure Mean 109 99 102 Pulse Ox 98 Oxygen Delivery Method Room Air Positive well nourished and well developed; Negative for cachectic, contractures or unkempt General Appearance ED: well developed and NAD; Negative for unkempt, cachectic, contractures or pallor Nutritional Appearance: Negative for cachectic HEENT Reports moist mucous membranes normocephalic and atraumatic; Negative for trauma or tenderness Eyes PERRL and EOMs intact bilaterally General Eye ED: Negative for pale conjunctiva Neck no lymphadenopathy, supple and no JVD General: Negative for tenderness Carotids: Negative for other Lymph Lymphatic: other Resp normal respiratory effort and clear to auscultation bilaterally Effort and Inspection: Negative for respiratory distress Auscultation: Negative for rales, rhonchi, wheezes or diminished lung sounds Cardio regular (more content not included)... Normal [facility] H AND P Exam - [facility]iston 11-01-2024 H&P Exam - Hospitalist [facility] Medical Records Department [address] [place] [address] H P Exam - Hospitalist 11/01/240 MR#: [id number] Acct: [id number] Name: MG ROACH Rep #: [id number] : 1980 44 From: Danny Byrd MD PCP: Dr. Mark Cantu MD Status:ADM IN Location: [facility] PE591-8 HPI - General General Date of Admission: 11/01/24 HPI Narrative MG ROACH, is a 44 M who presents to the hospital with nausea, vomiting, and diarrhea. He went to a potluck on Sunday and started having significant nausea and vomiting starting night. Over the course the last couple of days he has had increasing abdominal pain and cramping as well as continued nausea and vomiting. Today he did have an episode of very liquid stool and with his continued symptoms he presented to the hospital. Vital signs are stable and lab work is unremarkable, he is not dehydrated. CT scan of his abdomen pelvis does show dilated loops of small bowel which could be a severe viral gastroenteritis versus a small bowel obstruction however he denies a history of having any type of abdominal surgery there is no evidence of hernia and the only other diagnosis would be cancer which is unlikely at the moment as there is nothing seen on imaging. [facility] Medical History no medical history Home Medications ???Medication ???Instructions ???Recorded ???Last Taken ???Type No Known/Unobtainable [No Known 11/03/13 Unknown History Home Medications] Allergy/AdvReac Type Severity Reaction Status Date / Time No Known Allergies Allergy Verified 11/01/24 15:21 Family History (Updated 11/01/24 @ 22:[address] Danny Byrd MD) Other Heart disease Family History no significant family his Surgical History no surgical history no surgical history Social History Smoking Status: Former smoker ROS Constitutional Constitutional: Denies chills, fatigue, fever(s) or malaise Eyes Eyes: Denies blurry vision ENT HEENT: Denies headache(s) or nasal discharge Cardiovascular Cardiovascular: Denies chest pain, dyspnea on exertion or syncope Respiratory/Chest Respiratory/Chest: Denies cough, shortness of breath at rest or shortness of breath with exertion Gastrointestinal Gastrointestinal: Reports abdominal pain, diarrhea, nausea and vomiting; Denies constipation Genitourinary Genitourinary: Denies dysuria Neurologic Neurologic: Denies focal weakness, numbness or tremor(s) Psychiatric Psychiatric: Denies anxiety or depression Vital Signs Vital Signs Vital Signs: 11/01/24 15:21 11/01/24 17:20 11/01/24 19:00 Temperature 97.8 F Temperature Source Temporal Pulse Rate 99 78 Respiratory Rate 18 Blood Pressure 141/94 H 138/80 H 128/89 H Blood Pressure Mean 109 99 102 Pulse Ox 98 Oxygen Delivery Method Room Air 11/01/24 21:00 11/01/24 21:00 Temperature 98.9 F Temperature Source Pulse Rate 91 91 Respiratory Rate 16 18 Blood Pressure 117/80 117/80 Blood Pressure Mean 92 92 Pulse Ox 95 95 Oxygen Delivery Method Room Air Weight Weight: 240 lb 4.862 oz Body Mass Index (BMI) 33.5 Physical Exam Narrative General: Alert, Oriented x3, Cooperative, No apparent distress HEENT: Atraumatic, PERRLA, EOMI, Normocephalic Oral: Moist Mucosa Neck: Supple, No JVD Lungs: Clear to auscultation, Normal air movement, No rhonchi, No wheeze, No rales Cardiovascular: Tachycardic, Regular Rhythm, Normal S1, Normal S2, No murmurs Abdomen: Soft, minimal tender, Non-Distended, No Hepato-splenomegaly Extremities: No edema, Capillary Refill Less than 3 Seconds Skin: No rashes, No breakdown Musculoskeletal: No Tenderness to Palpation of Joints or Extremities Neurological: No focal neurological deficits, Motor Exam 5/5 strength throughout, Sensory exam intact to light touch and pain Psych/Mental Status: Normal Affect, Appropriate Results Lab / Micro Data 11/01/24 15:33 11/01/24 15:33 Labs: Laboratory Results - last 24 hr 11/01/24 15:33: WBC 9.2, RBC 4.91, Hgb 15.1, Hct 45.9, MCV 93.5, MCH 30.8, MCHC 32.9, RDW Std Deviation 43.7, RDW Coeff of Donavon 12.8, Plt Count 264, MPV 11.0, Immature Gran % (Auto) 0.300, Neut % (Auto) 71.5 H, Lymph % (Auto) 17.7 L, [place] % (Auto) 9.3, Eos % (Auto) 0.9, Baso % (Auto) 0.3, Absolute Neuts (auto) 6.6, Absolute Lymphs (auto) 1.62, Nucleated RBC % 0, Sodium 137, Potassium 3.5, Chloride 103, Carbon Dioxide 30.0, Anion Gap 4 L, BUN 11, Creatinine 0.98, Est GFR (MDRD) Af Amer 108, Est GFR (MDRD) Non-Af 89, BUN/Creatinine Ratio 11.3, Glucose 111 H, Calcium 9.0 11/01/24 15:45: Urine Color Yellow, Urine Clarity Sl. Cloudy, Urine pH 6.0, Ur Specific [place] 1.015, Urine Protein 30 H, Urine Glucose (UA) Normal, Urine Ketone (more content not included)... Normal [facility] Urinalysis, Completeon 11-01 BACTERIA 2+ /hpf Normal None Seen [facility] Comment on above: Order Comment: CLEAN CATCH Performed By: #### L 400.0001 ####[facility] [address] [place], [place], [id number] EPI,SQUAMOUS 0-5 SEEN Normal 0-5 [facility] Comment on above: Order Comment: CLEAN CATCH Performed By: #### L 400.0001 ####[facility] [address] [place], [place], [id number] Mucus Ql (Urine sed) 2+ /hpf Normal [facility] Comment on above: Order Comment: CLEAN CATCH Performed By: #### L 400.0001 ####[facility] [address] [place], [place], [address] WBC 5-10 SEEN Normal 0-5 [facility] Comment on above: Order Comment: CLEAN CATCH Performed By: #### L 400.0001 ####[facility] [address] [place], [address] BILIRUBIN URINE 1 mg/dL Abnormal Negative [facility] Comment on above: Order Comment: CLEAN CATCH Result Comment: COLO R OF URINE MAY AFFECT DIPSTICK RESULTS. Performed By: #### L 400.0001 ####[facility] [address] [place], [address] Clarity (U) Sl. Cloudy Normal Clear [facility] Comment on above: Order Comment: CLEAN CATCH Performed By: #### L 400.0001 ####[facility] [address] [facility] [address] Color (U) Yellow Normal Yellow [facility] Comment on above: Order Comment: CLEAN CATCH Performed By: #### L 400.0001 ####[facility] [address] [facility] [address] GLUCOSE, UR Normal Normal Normal [facility] Comment on above: Order Comment: CLEAN CATCH Performed By: #### L 400.0001 ####[facility] [address] [facility] [address] KETONE UR Negative Normal Negative [facility] Comment on above: Order Comment: CLEAN CATCH Performed By: #### L 400.0001 ####[facility] [address] [facility] [address] LEUK ESTERASE 25 /ul Abnormal Negative [facility] Comment on above: Order Comment: CLEAN CATCH Performed By: #### L 400.0001 ####[facility] [address] [facility] [address] Nitrite Ql (U) Negative Normal Negative [facility] Comment on above: Order Comment: CLEAN CATCH Performed By: #### L 400.0001 ####[facility] [address] [place], [address] OCCULT BLOOD-UR 10 /ul Abnormal Negative [facility] Comment on above: Order Comment: CLEAN CATCH Performed By: #### L 400.0001 ####[facility] [address] [place], [address] pH UR 6.0 Normal 5.0 - 8.0 [facility] Comment on above: Order Comment: CLEAN CATCH Performed By: #### L 400.0001 ####[facility] [address] [place], [address] PROT DIPSTX 30 mg/dl Abnormal Negative [facility] Comment on above: Order Comment: CLEAN CATCH Performed By: #### L 400.0001 ####[facility] [address] [place], [address] SP.GR. DIPSTX 1.015 Normal 1.002-1.030 [facility] Comment on above: Order Comment: CLEAN CATCH Performed By: #### L 400.0001 ####[facility] [address] [place], [address] UROBILI 8 mg/dl Abnormal Normal [facility] Comment on above: Order Comment: CLEAN CATCH Performed By: #### L 400.0001 ####[facility] [address] [place], [address] RBC 0 SEEN Normal 0-5 [facility] Comment on above: Order Comment: CLEAN CATCH Performed By: #### L 400.0001 ####[facility] [address] [place], [address] CNOVon 10-28-2024 CNOV Office Visit ([facility] ) MG ROACH ([id number]) 1980 M Date Time Provider Department 10/28/24 9:20 AM MARK CANTU [facility] During your visit today, we recorded the following information about you: Pulse Respiration Blood pressure Weight 72/minute 16/minute 108/72 108.4 kg Height 1.791 m Mark Cantu MD 10/28/2024 9:51 AM Signed Chief Complaint Patient presents with: Physical HPI Mg Roach is a 44 year old male who presents here today for Physical. Patient with Hx of seasonal allergies, obesity, ex-smoker as well as those reviewed and addressed below and in ROS. Patient zackery cordero doing well. Flonase controls his allergies when needed. Past medical history, appointments, medications, allergies reviewed. Previous Medical History PAST MEDICAL HISTORY Diagnosis Date Ex-smoker 08/19/2021 Started age 21 about a pack a week quit age 25 Obesity, Class I, BMI 30-34.9 08/20/2019 Seasonal allergic rhinitis due to pollen 08/20/2018 Previous Surgical History PAST SURGICAL HISTORY Procedure Laterality Date TONSILLECTOMY HX Family History FAMILY HISTORY Problem Relation Age of Onset None Mother Hypertension Father Hyperlipidemia Father None Brother None Brother Alzheimer's Disease Maternal Grandfather Coronary Artery Disease Paternal Grandfather 80's Stroke Paternal Grandfather Colon Cancer No Family History Prostate Cancer No Family History Breast Cancer No Family History Ovarian cancer No Family History Diabetes No Family History Kidney Disease No Family History Seizures No Family History Thyroid No Family History Patient Allergies ALLERGIES Allergen Reactions Seasonal Allergies Other: See Comments runny nose and sneezing Current Medications Current Outpatient Medications on File Prior to Visit Medication Sig sod cdltx-menljq-oyxpmh bottle (NEILMED SINUS RINSE COMPLETE) pkdv Dissolve one packet or sachet in 8 oz (240 mL) or lukewarm distilled, previously boiled or bottled water. Use as directed per package instructions fluticasone (FLONASE) 50 mcg/actuation nasal spray Use 2 Sprays in each nostril once daily. Rinse mouth after use. No current facility-administered medications on file prior to visit. Social History Social History Tobacco Use Smoking status: Former Current packs/day: 0.50 Average packs/day: 0.5 packs/day for 2.0 years (1.0 ttl pk-yrs) Types: Cigarettes Smokeless tobacco: Former Tobacco comments: quit 2006 Vaping Use Vaping status: Never Used Substance Use Topics Alcohol use: Yes Alcohol/week: 2.0 standard drinks of alcohol Types: 2 Glasses of Wine (5oz) per week Drug use: No Review of Symptoms REVIEW OF SYSTEMS GENERAL: No weight loss, malaise or fevers HEENT: Negative for frequent or significant headaches, No changes in hearing or vision, no nose bleeds or other nasal problems NECK: Negative for lumps, goiter, pain and significant neck swelling RESPIRATORY: Negative for cough, hemoptysis, wheezing, COPD, dyspnea or shortness of breath CARDIOVASCULAR: Negative for chest pain, leg swelling, hypertension, CHF or palpitations GI: No nausea, vomiting, or diarrhea and No heartburn or reflux symptoms : No history of dysuria, blood MUSCULOSKELETAL: Negative for joint pain or swelling, back pain or muscle pain SKIN: Negative for lesions, rash, and itching PSYCH: Negative for sleep disturbance, mood disorder and recent psychosocial stressors HEMATOLOGY/LYMPHOLOGY: Negative for prolonged bleeding, bruising easily or swollen nodes ENDOCRINE: Negative for cold or heat intolerance, polyuria, polydipsia and goiter NEURO: No history of headaches, syncope, paralysis, seizures or tremors EXAM: BP 118/86 Pulse 72 Resp 16 Ht 179.1 cm (5' 10.5) Wt 108.4 kg (239 lb) BMI 33.81 kg/m? BP 108/72 Pulse 72 Resp 16 Ht 179.1 cm (5' 10.5) Wt 108.4 kg (239 lb) BMI 33.81 kg/m? Last 5 Encounter Wt Readings: Date: Wt: 10/28/2024 108.4 kg (239 lb) 11/15/2023 109.8 kg (242 lb) 11/11/2023 108.4 kg (239 lb) 11/09/2023 108.2 kg (238 lb 9.6 oz) 08/28/2023 104.8 kg (231 lb) General Appearance: Well appearing, alert, in no acute distress, well-hydrated, well nourished. and Obese. Skin: Skin color, texture, turgor normal, no suspicious rashes or lesions. Head: Normocephalic, no masses, lesions, tenderness or abnormalities. Eyes: Anicteric sclera. Pupils are equally round and reactive to light. Extraocular movements are intact. . Ears: External ears, TM's normal, canals clear. Nose/Sinuses: Nares normal, septum midline, mucosa normal, no drainage or sinus tenderness. Oropharynx: Lips, mucosa, and tongue normal, teeth and gums normal, oropharynx normal. Neck: Supple, no adenopathy; thyroid symmetric, normal size, no bruits. Lungs: Lungs clear to auscultation. No wheezing, rhonchi, rales.. (more content not included)... Normal [facility] CNPNon 10-28-2024 CNPN Telephone (FAMPWS) MG ROACH ([id number]) 1980 M Date Time Provider Department 10/28/24 MARK CANTU [facility] During your visit today, we recorded the following information about you: Mark Cantu MD 10/28/2024 7:20 PM Signed Let patient know his lipid panel showed Trigs slightly elevated at 168 (goal<150), HDL good at 42 and LDL elevated at 165 (goal<130). Advise patient to work on reduced fat/chol in diet and increased exercise for weight loss. His blood sugar lab and prostate lab were good. Vera Galindo MA 10/29/2024 8:13 AM Signed Patient notified and voiced understanding. Vera Galindo MA Allergies As of Date: 10/28/2024 Noted Allergy Reaction SEASONAL ALLERGIES 09/03/2014 14 - Other: See Comments Comments: runny nose and sneezing Date Reviewed: 10/28/2024 Reviewed by: Mark Cantu MD - Fully Assessed Reason for Visit: Results [95] Primary Visit Diagnosis:Hyperlipidemia, mixed [E78.2] Prescriptions as of 10/29/2024 - sod alnck-xbbczw-infasz bottle (NEILMED SINUS RINSE COMPLETE) pkdv Dissolve one packet or sachet in 8 oz (240 mL) or lukewarm distilled, previously boiled or bottled water. Use as directed per package instructions - fluticasone (FLONASE) 50 mcg/actuation nasal spray Use 2 Sprays in each nostril once daily. Rinse mouth after use. Problem List As Of Date 10/28/2024 Noted Resolved Calf pain [M79.669] 09/03/2014 08/20/2018 Seasonal allergic rhinitis due to pollen [J30.1]08/20/2018 Obesity, Class I, BMI 30-34.9 [E66.811] 08/20/2019 Encounter for screening for diabetes mellitus [*08/15/2021 Ex-smoker [Z87.891] 08/19/2021 Well adult exam [Z00.00] 08/19/2021 Screening for prostate cancer [Z12.5] 08/28/2022 Encounter for lipid screening for cardiovascula*10/28/2024 Hyperlipidemia, mixed [E78.2] 10/28/2024 Encounter Status:Closed by VERA GALINDO on 10/29/24 Normal [facility] HbA1c (Bld)on 10-28-2024 Average glucose Estimated from glycated hemoglobin (Bld) [Mass/Vol] 100 mg/dL Normal [facility] Comment on above: Order Comment: Speci men Type: BLOOD SPECIMENOrdering Facility: [facility] Address: [address] [place] [address] Result Comment: eAG: (Estimated average glucose) is a calculated value from HgbA1c and is outside dealer sales representative of the average blood glucose level in the last 2-3 month period. Performed By: #### 5 5454-3 ####[facility] LABCLIA [id number] [place] [address] [place] HbA1c (Bld) [Mass fraction] 5.1 % Normal 4.3-5.6 [facility] Comment on above: Order Comment: Speci men Type: BLOOD SPECIMENOrdering Facility: [facility] Address: [address] [place] [address] Result Comment: Amer ican Diabetes Association guidelines indicate that patients with HgbA1c in the range 5.7-6.4% are at increased risk for development of diabetes, and intervention by lifestyle modification may be beneficial. HgbA1c greater or equal to 6.5% is considered diagnostic of diabetes. Performed By: #### 5 5454-3 ####[facility] LABCLIA [id number] [address] [place] LIPID PANEL, NONFASTINGon Cholesterol [Mass/Vol] 239 mg/dL High <200 [facility] Comment on above: Order Comment: Speci men Type: BLOOD SPECIMENOrdering Facility: [facility] Address: [address] [place] [address] Result Comment: <200 mg/dL, Desirable 200-239 mg/dL, Borderline high >239 mg/dL, High Performed By: #### L IPNF ####[facility] LABCLIA [id number] [address] [place] HDL CHOLESTEROL, NF 42 mg/dL Normal >39 [facility] Comment on above: Order Comment: Speci men Type: BLOOD SPECIMENOrdering Facility: [facility] Address: [address] [place] [address] Result Comment: 40-5 9 mg/dL, Acceptable >59 mg/dL, High: Negative risk factor for coronary heart disease <40 mg/dL, Low: Positive risk factor for coronary heart disease Performed By: #### L IPNF ####[facility] LABCLIA [id number] [address] [place] [facility] LDL CHOLESTEROL, NF 165 mg/dL High <100 [facility] Comment on above: Order Comment: Speci men Type: BLOOD SPECIMENOrdering Facility: [facility] Address: [address] [place] [address] Result Comment: <100 mg/dL, Optimal 100-129 mg/dL, Near optimal/above optimal 130-159 mg/dL, Borderline high 160-189 mg/dL, High >189 mg/dL, Very high Secondary prevention optimal LDL Cholesterol levels are recommended to be < 70 mg/dL Performed By: #### L IPNF ####[facility] LABCLIA [id number] [address] [place] LDL/HDL RATIO, NF 3.93 mg/dL High <2.54 [facility] Comment on above: Order Comment: Speci men Type: BLOOD SPECIMENOrdering Facility: [facility] Address: [address] [place] [address] Result Comment: Maria Del Rosario osborne: 1. National Cholesterol Education Program ATP III Guideline At-A-Glance Quick Desk Reference: National Heart, Lung, and Blood [place]. National Institutes of Health. 2001: NIH Publication No. 01-3305. 2. An International Atherosclerosis Society position paper: global recommendations for the management of dyslipidemia: executive summary, Atherosclerosis. 2014: 232(2):410-413. Performed By: #### L IPNF ####[facility] LABCLIA [id number] [place] [address] [place] NON HDL CHOL, NF 197 mg/dL High <130 [facility] Comment on above: Order Comment: Flavioi natalie Type: BLOOD SPECIMENOrdering Facility: [facility] Address: [address] [place] [address] Result Comment: <130 mg/dL, Optimal 130-159 mg/dL, Near optimal/above optimal 160-189 mg/dL, Borderline high 190-219 mg/dL, High >219 mg/dL, Very high Secondary prevention optimal non HDL Cholesterol levels are recommended to be <100 mg/dL Performed By: #### L IPNF ####[facility] LABCLIA [id number] [address] [place] T CHOL/HDL RATIO NF 5.69 mg/dL High <5.10 [facility] Comment on above: Order Comment: Speci men Type: BLOOD SPECIMENOrdering Facility: [facility] Address: [address] [place] [address] Performed By: #### L IPNF ####[facility] LABCLIA [id number] [place] [address] [place] TRIGLYCERIDES, NF 158 mg/dL High <150 [facility] Comment on above: Order Comment: Speci men Type: BLOOD SPECIMENOrdering Facility: [facility] Address: [address] [place] [address] Result Comment: <150 mg/dL, Normal 150-199 mg/dL, Borderline high 200-499 mg/dL, High >499 mg/dL, Very high Performed By: #### L IPNF ####[facility] LABIA [id number] [place] [address] [place] VLDL CHOLESTEROL, NF 32 mg/dL High <30 [facility] Comment on above: Order Comment: Speci men Type: BLOOD SPECIMENOrdering Facility: [facility] Address: [address] [place] [address] Performed By: #### L IPNF ####[facility] LABIA [id number] [place] [address] [place] PSA/PROSTATE SPECIFIC ANTIGE N SCREENINGon 10-28-2024 Prostate specific Ag [Mass/Vol] 0.55 ng/mL Normal <2.60 [facility] Comment on above: Order Comment: Speci men Type: BLOOD SPECIMENOrdering Facility: [facility] Address: [address] [place] [address] Result Comment: Tota l PSA test methodology used is the Electrochemiluminescence Immunoassay by [employer]. Total PSA values by differing methodologies cannot be interchanged. Performed By: #### P SAS1 ####[facility] LABIA [id number] [address] [place] XR ANKLE GENERAL 3V AP/LAT/O BL RIGHTon 07-06-2023 [facility] XR Ankle - right AP and Late ral and obliqueon 07-06-2023 IMPRESSION: No acute osseous abnormality English Tutor: YAEL Transcribe Date/Time: Jul 06 2023 1:14P Dictated by : OLIVIA EDGE MD This examination was interpreted and the report reviewed and electronically signed by: OLIVIA EDGE MD on Jul 06 2023 1:17PM [facility] DIVISION OF RADIOLOGY * * *Final Report* * * DATE OF EXAM: Jul 06 2023 1:09PM WOX 5297 - XR ANKLE 3V AP/LAT/OBL RT / PROCEDURE REASON: Acute right ankle pain * * * * Physician Interpretation * * * * EXAMINATION: XR ANKLE 3V AP/LAT/OBL RT CLINICAL HISTORY: Acute right ankle pain Technique: XR ANKLE 3V AP/LAT/OBL RT -- RIGHT with 3 views on 3 images Comparison: None RESULT: No acute fracture or dislocation. Joint spaces are maintained. DIVISION OF RADIOLOGY Provider, [facility] - 07/06/2023 * * *Final Report* * * DATE OF EXAM: Jul 06 2023 1:09PM WOX 5297 - XR ANKLE 3V AP/LAT/OBL RT / PROCEDURE REASON: Acute right ankle pain * * * * Physician Interpretation * * * * EXAMINATION: XR ANKLE 3V AP/LAT/OBL RT CLINICAL HISTORY: Acute right ankle pain Technique: XR ANKLE 3V AP/LAT/OBL RT -- RIGHT with 3 views on 3 images Comparison: None RESULT: No acute fracture or dislocation. Joint spaces are maintained. IMPRESSION IMPRESSION: No acute osseous abnormality English Tutor: [facility] HOSPITALPearl Transcribe Date/Time: Jul 06 2023 1:14P Dictated by : OLIVIA EDGE MD This examination was interpreted and the report reviewed and electronically signed by: OLIVIA EDGE MD on Jul 06 2023 1:17PM EST [facility] Radiology Study observation (narrative) [facility] XR Ankle - right AP and Late ral and obliqueOrdered By: Ccf Provider on 07-06-2023 [facility] XR Knee - right AP and Later evi 12-10-2020 IMPRESSION: Unremark able right knee. English Tutor: PSCB Transcribe Date/Time: Dec 10 2020 4:05P Dictated by : JOSIE RUELAS MD This examination was interpreted and the report reviewed and electronically signed by: JOSIE RUELAS MD on Dec 10 2020 4:05PM [facility] DIVISION OF RADIOLOGY * * *Final Report* * * DATE OF EXAM: Dec 10 2020 4:00PM WOX 5207 - XR KNEE 2V AP/LAT RT / PROCEDURE REASON: Acute pain of right knee * * * * Physician Interpretation * * * * PROCEDURE: Right knee INDICATION: Acute pain of right knee .Lateral right knee pain x 1 month without direct injury. Pain increases with kneeling. TECHNIQUE: XR KNEE 2V AP/LAT RT COMPARISON: 09/03/2014 FINDINGS: No fracture or dislocation. Joint spaces are maintained. No joint effusion. Soft tissues are unremarkable. DIVISION OF RADIOLOGY Provider, [facility] [place] - 12/10/2020 * * *Final Report* * * DATE OF EXAM: Dec 10 2020 4:00PM WOX 5207 - XR KNEE 2V AP/LAT RT / PROCEDURE REASON: Acute pain of right knee * * * * Physician Interpretation * * * * PROCEDURE: Right knee INDICATION: Acute pain of right knee .Lateral right knee pain x 1 month without direct injury. Pain increases with kneeling. TECHNIQUE: XR KNEE 2V AP/LAT RT COMPARISON: 09/03/2014 FINDINGS: No fracture or dislocation. Joint spaces are maintained. No joint effusion. Soft tissues are unremarkable. IMPRESSION IMPRESSION: Unremarkable right knee. English Tutor: YAEL Transcribe Date/Time: Dec 10 2020 4:05P Dictated by : JOSIE RUELAS MD This examination was interpreted and the report reviewed and electronically signed by: JOSIE RUELAS MD on Dec 10 2020 4:05PM [facility] Radiology Study observation (narrative) [facility] XR Knee - right AP and Later alOrdered By: Ccf Provider on 12-10-2020 [facility] Total 25-OH Vitamin Don 10-1 Total 25-OH Vitamin D 21.7 ng/mL Low 30.0-100.0 [facility] Comment on above: Performed By: #### 2 5VD1 #### [place] [address] CNOVon 08-20-2019 CNOV Office Visit ([facility] ) MG ROACH ([id number]) 1980 M Date Time Provider Department 08/20/19 9:00 AM ANICETO MOORE [facility] During your visit today, we recorded the following information about you: Pulse Blood pressure Weight Height 78/minute 128/78 100.7 kg 1.803 m Aniceto Moore MD 08/20/2019 9:42 AM Signed Subjective Patient is here for wellness check. This is a 39 year-old male with seasonal allergic sinusitis. He has no active complaints today. He hasn't been needing Flonase frequently, and has not had any new medications. Sleep - 7 to 8 hours a night (rested upon awakening) Exercise - not formally at this time Diet - fair (not ideal) Review of Systems Constitutional: Negative for chills, fever, malaise/fatigue and weight loss. HENT: Negative for ear pain, hearing loss and sore throat. Eyes: Negative for blurred vision, double vision, photophobia and pain. Respiratory: Negative for cough, shortness of breath, wheezing and stridor. Cardiovascular: Negative for chest pain and palpitations. Gastrointestinal: Negative for abdominal pain, constipation, diarrhea, nausea and vomiting. Genitourinary: Negative for dysuria, frequency and urgency. Musculoskeletal: Negative for back pain, falls, joint pain and myalgias. Skin: Negative for itching and rash. Neurological: Negative for dizziness, tremors and headaches. Psychiatric/Behavioral: Negative for depression. The patient is not nervous/anxious. PAST MEDICAL HISTORY Diagnosis Date - Environmental allergies PAST SURGICAL HISTORY Procedure Laterality Date - NONE FAMILY HISTORY Problem Relation Age of Onset - None Mother - Hypertension Father - Heart Paternal Grandfather - Stroke Paternal Grandfather - None Brother - None Brother Social History Socioeconomic History Marital status: Spouse name: Not on file Number of children: Not on file Years of education: Not on file Highest education level: Not on file Occupational History Not on file Social Needs Financial resource strain: Not on file Food insecurity: Worry: Not on file Inability: Not on file Transportation needs: Medical: Not on file Non-medical: Not on file Tobacco Use Smoking status: Former Smoker Packs/day: 0.50 Years: 2.00 Pack years: 1 Types: Cigarettes Smokeless tobacco: Former User Tobacco comment: quit 2005 Substance and Sexual Activity Alcohol use: Yes Alcohol/week: 5.0 standard drinks Types: 2 Glasses of Wine (5oz) per week Drug use: No Sexual activity: Not on file Lifestyle Physical activity: Days per week: Not on file Minutes per session: Not on file Stress: Not on file Relationships Social connections: Talks on phone: Not on file Gets together: Not on file Attends baptism service: Not on file Active member of club or organization: Not on file Attends meetings of clubs or organizations: Not on file Relationship status: Not on file Intimate partner violence: Fear of current or ex partner: Not on file Emotionally abused: Not on file Physically abused: Not on file Forced sexual activity: Not on file Other Topics Concerns: Not on file Social History Narrative Not on file Current Meds fluticasone (FLONASE) 50 mcg/actuation nasal spray Use 2 Sprays in each nostril once daily. Rinse mouth after use. Objective BP 128/78 (BP Site: Right Arm, BP Position: Sitting, BP Cuff Size: Large Adult) Pulse 78 Ht 180.3 cm (5' 11) Wt 100.7 kg (222 lb) SpO2 98% BMI 30.96 kg/m? Physical Exam Constitutional: He is oriented to person, place, and time and well-developed, well-nourished, and in no distress. HENT: Head: Normocephalic and atraumatic. Eyes: Pupils are equal, round, and reactive to light. Conjunctivae and EOM are normal. Neck: Normal range of motion. Neck supple. No tracheal deviation present. No thyromegaly present. Cardiovascular: Normal rate, regular rhythm and intact distal pulses. Exam reveals no gallop and no friction rub. No murmur heard. Pulmonary/Chest: Effort normal and breath sounds normal. No stridor. No respiratory distress. He has no wheezes. Abdominal: Soft. Bowel sounds are normal. He exhibits no distension and no mass. There is no tenderness. There is no guarding. Musculoskeletal: Normal range of motion. He exhibits no edema, tenderness or deformity. Lymphadenopathy: He has no cervical adenopathy. Neurological: He is alert and oriented to person, place, and time. Gait normal. GCS score is 15. Skin: Skin is warm and dry. Psychiatric: Mood and affect normal. Nursing note reviewed. ASSESSMENT/PLAN: 1. Wellness examination - ICD9: V70.0, ICD10: Z00.00 (primary diagnosis) - Recommended introduction of regular aerobic exercise. - Discussed need and benefit for weight loss. BMI 30.96 kg/(m2) - Vaccination(s) recommended today: Influenza - will perform thru work in coming week - Follow up for annual exam in one year. Wellness form completed this AM (faxed to employer) - COMP METABOLIC PANEL - HGB A1C - CBC + DIFF - URINALYSIS WITH MICROSCOPIC - TSH, REFLEX - LIPID PANEL BASIC - VITAMIN D 25 HYDROXY 2. Obesity, Class I, BMI 30-34.9 - ICD9: 278.00, ICD10: E66.9 It was recommended to the patient to follow a heart healthy diet such as the AHA or DASH dietary pattern which is high in vegetables, fruits, low-fat dairy products, whole grains, poultry, fish, and nuts and is low in sweets, sugar-sweetened beverages, and red meats. The DASH dietary pattern is low in saturated fat, total fat, and cholesterol. It is rich in potassium, magnesium, and calcium, as well as protein and fiber. ? They were also advised to get 30 minutes of aerobic exercise of moderate intensity five times a week. If the patient is not able to do at least 30 minutes at one time, they can add up 10-minute sessions throughout the day. ? It was stated to the patient that adhering to a heart-healthy diet, regular exercise habits, avoidance of tobacco products, and maintenance of a healthy weight are crucial components of their heart disease risk reduction. 3. Seasonal allergic rhinitis due to pollen - ICD9: 477.0, ICD10: J30.1 Use of PRN Flonase. 4. Needs flu shot - ICD9: V04.81, ICD10: Z23 Accomplish thru employer. Pedro Luis Quintana Cha, MD Attending Note I evaluated the patient and personally participated in the adair components. I agree with the resident's findings and plan with the following revisions and/or additions: Additional comments in BOLD Signature: Aniceto Moore MD Date: August 20, 2019 Time: 9:40 AM Aniceto Moore MD Referring Provider: SELF [200] Allergies As of Date: 08/20/2019 Noted Allergy Reaction SEASONAL ALLERGIES 09/03/2014 14 - Other: See Comments Comments: runny nose and sneezing Date Reviewed: 08/20/2019 Reviewed by: Aniceto Moore - Fully Assessed Reason for Visit: To Establish [Other] Physical [83] Primary Visit Diagnosis:Wellness examination [Z00.00] Other Visit Diagnoses:Obesity, Class I, BMI 30-34.9 [E66.9] Seasonal allergic rhinitis due to pollen [J30.1] Needs flu shot [Z23] Order(s):COMP METABOLIC PANEL [SQCMP] Order #: [id number] FUTURE HGB A1C [KDMNL1G] Order #: [id number] FUTURE CBC + DIFF [SQCBCDIF] Order #: [id number] FUTURE URINALYSIS WITH MICROSCOPIC [SQUAWMIC] Order #: [id number] FUTURE TSH, REFLEX [[id number]] Order #: [id number] FUTURE LIPID PANEL BASIC [SQLIPB] Order #: [id number] FUTURE VITAMIN D 25 HYDROXY [SQVITD] Order #: [id number] FUTURE Prescriptions as of 08/20/2019 Sig: FLUTICASONE PROPIONATE 50 MCG* Use 2 Sprays in each nostril * Problem List As Of Date 08/20/2019 Noted Resolved Calf pain [M79.669] INVALID FOR*08/20/2018 Seasonal allergic rhinitis due to pollen [J30.1]INVALID FOR* Obesity, Class I, BMI 30-34.9 [E66.9] INVALID FOR* Medications Discontinued During This Encounter fluticasone (FLONASE) 50 mcg/actuati* 1 Kirill* 11 08/20/2018 08/20/2019 Route: EACH NOSTRIL Sig: Use 2 Sprays in each nostril once daily. Rinse mouth after use. Disc: Reason for discontinue is not on file. Disposition: Return in about 1 year (around 08/20/2020) for Annual Examination. Follow-up and Disposition History Recorded Encounter Status:Closed by ANICETO MOORE MD on 08/20/19 Normal [facility] Comprehensive Panelon 2018 Creatinine [Mass/Vol] 0.83 mg/dL Normal 0.67-1.17 [facility] Comment on above: Performed By: #### P 14 #### [address] [address] ALP [Catalytic activity/Vol] 69 U/L Normal 45-117 [facility] Comment on above: Performed By: #### P 14 #### [address] [address] Bilirubin [Mass/Vol] 0.5 mg/dL Normal 0.2-1.0 [facility] Comment on above: Performed By: #### P 14 #### [facility] [address] [place], [place] [address] Protein [Mass/Vol] 7.5 g/dL Normal 6.4-8.2 [facility] Comment on above: Performed By: #### P 14 #### [facility] [address] [place], [place] [address] AST [Catalytic activity/Vol] 16 U/L Normal 15-37 [facility] Comment on above: Performed By: #### P 14 #### [facility] [address] [place], [place] [address] ALT [Catalytic activity/Vol] 30 U/L Normal 12-78 [facility] Comment on above: Performed By: #### P 14 #### [facility] [address] [place], [place] [address] Glucose [Mass/Vol] 83 mg/dL Normal 70-99 [facility] Comment on above: Performed By: #### P 14 #### [facility] [address] [place], [place] [address] Albumin [Mass/Vol] 4.2 g/dL Normal 3.4-5.0 [facility] Comment on above: Performed By: #### P 14 #### [facility] [address] [place], [place] [address] Anion gap [Moles/Vol] 12 mmol/L Normal 8-16 [facility] Comment on above: Performed By: #### P 14 #### [facility] [address] [place], [place] [address] Calcium [Mass/Vol] 9.2 mg/dL Normal 8.5-10.1 [facility] Comment on above: Performed By: #### P 14 #### [facility] [address] [place], [place] [address] CO2 [Moles/Vol] 28 mmol/L Normal 21-32 [facility] Comment on above: Performed By: #### P 14 #### [facility] [address] [place], [place] [address] Urea nitrogen [Mass/Vol] 11 mg/dL Normal 7-18 [facility] Comment on above: Performed By: #### P 14 #### [facility] [address] [place] [address] Chloride [Moles/Vol] 106 mmol/L Normal 98-107 [facility] Comment on above: Performed By: #### P 14 #### [facility] [address] [place] [address] Potassium [Moles/Vol] 4.8 mmol/L Normal 3.5-5.1 [facility] Comment on above: Performed By: #### P 14 #### [facility] [address] [place] [address] Sodium [Moles/Vol] 141 mmol/L Normal 136-145 [facility] Comment on above: Performed By: #### P 14 #### [facility] [address] [place] [address] Hemogram/Diffon 08-20-2019 Abs Immature Grans 0.03 thou/cmm Normal 0.00-0.05 [facility] Comment on above: Performed By: #### C BCD1 #### [facility] [address] [place] [address] Abs Neut (ANC) 4.60 thou/cmm Normal 1.78-5.38 [facility] Comment on above: Performed By: #### C BCD1 #### [facility] [address] [place] [address] Abs. Baso 0.05 thou/cmm Normal 0.01-0.08 [facility] Comment on above: Performed By: #### C BCD1 #### [facility] [address] [place] [address] Abs. [place] 0.74 thou/cmm Normal 0.30-0.82 [facility] Comment on above: Performed By: #### C BCD1 #### [facility] [address] [place] [address] Basophils/100 WBC (Bld) 0.6 % Normal [facility] Comment on above: Performed By: #### C BCD1 #### [facility] [address] [place] [address] Eosinophils (Bld) [#/Vol] 0.24 thou/cmm Normal 0.04-0.54 [facility] Comment on above: Performed By: #### C BCD1 #### [facility] [address] [place], [place] [address] Eosinophils/100 WBC (Bld) 2.9 % Normal [facility] Comment on above: Performed By: #### C BCD1 #### [facility] [address] [place] [address] Erythrocyte distribution width (RBC) [Ratio] 12.6 % Normal 11.6-14.4 [facility] Comment on above: Performed By: #### C BCD1 #### [facility] [address] [place] [address] Hematocrit (Bld) [Volume fraction] 47.1 % Normal 40.1-51.0 [facility] Comment on above: Performed By: #### C BCD1 #### [facility] [address] [place] [address] Hemoglobin (Bld) [Mass/Vol] 14.9 g/dL Normal 13.7-17.5 [facility] Comment on above: Performed By: #### C BCD1 #### [place] [address] Immature Grans 0.40 % Normal [facility] Comment on above: Performed By: #### C BCD1 #### [facility] [address] [place], [place] [address] Lymphocytes (Bld) [#/Vol] 2.54 thou/cmm Normal 0.84-2.85 [facility] Comment on above: Performed By: #### C BCD1 #### [facility] [address] [place], [place] [address] Lymphocytes/100 WBC (Bld) 31.0 % Normal [facility] Comment on above: Performed By: #### C BCD1 #### [facility] [address] [place] [address] MCH (RBC) [Entitic mass] 30.7 pg Normal 25.7-32.2 [facility] Comment on above: Performed By: #### C BCD1 #### [facility] [address] [place], [place] [address] MCHC (RBC) [Mass/Vol] 31.6 % Low 32.3-36.5 [facility] Comment on above: Performed By: #### C BCD1 #### [facility] [address] [place], [place] [address] MCV (RBC) [Entitic vol] 96.9 fL High 83.2-95.6 [facility] Comment on above: Performed By: #### C BCD1 #### [facility] [address] [place] [address] Monocytes/100 WBC (Bld) 9.0 % Normal [facility] Comment on above: Performed By: #### C BCD1 #### [facility] [address] [place] [address] Platelet mean volume (Bld) [Entitic vol] 11.1 fL Normal 8.7-12.0 [facility] Comment on above: Performed By: #### C BCD1 #### [facility] [address] [place] [address] Platelets (Bld) [#/Vol] 294 thou/cmm Normal 141-365 [facility] Comment on above: Performed By: #### C BCD1 #### [facility] [address] [place] [address] RBC (Bld) [#/Vol] 4.86 mil/cmm Normal 4.63-6.08 [facility] Comment on above: Performed By: #### C BCD1 #### [facility] [address] [place] [address] RDW SD 45.1 fl Normal 36.1-45.8 [facility] Comment on above: Performed By: #### C BCD1 #### [facility] [address] [place] [address] Seg Neutrophil 56.1 % Normal [facility] Comment on above: Performed By: #### C BCD1 #### [facility] [address] [place] [address] WBC (Bld) [#/Vol] 8.20 thou/cmm Normal 4.23-9.07 [facility] Comment on above: Performed By: #### C BCD1 #### [facility] [address] [place], [place] [address] Hgb A1con 08-20-2019 HbA1c (Bld) [Mass fraction] 5.2 % Normal 4.2-6.3 [facility] Comment on above: Result Comment: Meth od is National Glycohemoglobin Standardization Program (NGSP) compliant. Performed By: #### H A1C #### [facility] [address] [place], [place] [address] HbA1c (Bld) [Mass fraction] 103 mg/dl Normal [facility] Comment on above: Performed By: #### H A1C #### [place] [address] Lipid Profileon 08-20-2019 Cholesterol in HDL [Mass/Vol] 53 mg/dL Normal >40 [facility] Comment on above: Performed By: #### L IPD2 #### [place] [address] Cholesterol in LDL [Mass/Vol] 168 mg/dL Normal [facility] Comment on above: Result Comment: No C AD and with fewer than 2 CAD risk factors <160 mg/dL No CAD but with 2 or more CAD risk factors <130 mg/dL Definite CAD or other atherosclerotic disease <100 mg/dL Performed By: #### L IPD2 #### [address] [address] Cholesterol in LDL/Cholesterol in HDL [Mass ratio] 3.2 Normal 1.1-4.8 [facility] Comment on above: Result Comment: LDL, VLDL,LDL/HDL, Invalid if Triglyceride >400 Performed By: #### L IPD2 #### [facility] [address] [place], [place] [address] Cholesterol.total/ Cholesterol in HDL [Mass ratio] 4.8 {ratio} Normal 2.1-7.3 [facility] Comment on above: Performed By: #### L IPD2 #### [place] [id number] Cholesterol [Mass/Vol] 256 mg/dL High 0-199 [facility] Comment on above: Result Comment: <200 Desirable 200-240 Borderline >240 High Performed By: #### L IPD2 #### [facility] [address] [place] [id number] Cholesterol in VLDL [Mass/Vol] 35 mg/dL Normal <50 Desired [facility] Comment on above: Performed By: #### L IPD2 #### [facility] [address] [place], [place] [address] Triglyceride [Mass/Vol] 176 mg/dL High 0-149 [facility] Comment on above: Result Comment: < 20 0 Desirable Result invalid if not a fasting specimen. Performed By: #### L IPD2 #### [facility] [address] [place] [id number] MDRD GFRon 08-20-2019 GFR/1.73 sq M predicted among non-blacks MDRD (S/P/Bld) [Vol rate/Area] mL/min/{1.73_m2} Normal >60mL/min/1. 73m2 [facility] Comment on above: Result Comment: If t he patient is , multiply the result by 1.210. Performed By: #### G FR #### [facility] [address] [place] [id number] PROGRESSon 08-20-2019 PROGRESS HNO ID: [id number] Author: Aniceto Moore Service: ? Author Type: Physician Type: Progress Notes Filed: 08/20/2019 9:42 AM Note Text: Subjective Patient is here for wellness check. This is a 39 year-old male with seasonal allergic sinusitis. He has no active complaints today. He hasn't been needing Flonase frequently, and has not had any new medications. Sleep - 7 to 8 hours a night (rested upon awakening) Exercise - not formally at this time Diet - fair (not ideal) Review of Systems Constitutional: Negative for chills, fever, malaise/fatigue and weight loss. HENT: Negative for ear pain, hearing loss and sore throat. Eyes: Negative for blurred vision, double vision, photophobia and pain. Respiratory: Negative for cough, shortness of breath, wheezing and stridor. Cardiovascular: Negative for chest pain and palpitations. Gastrointestinal: Negative for abdominal pain, constipation, diarrhea, nausea and vomiting. Genitourinary: Negative for dysuria, frequency and urgency. Musculoskeletal: Negative for back pain, falls, joint pain and myalgias. Skin: Negative for itching and rash. Neurological: Negative for dizziness, tremors and headaches. Psychiatric/Behavioral: Negative for depression. The patient is not nervous/anxious. PAST MEDICAL HISTORY Diagnosis Date - Environmental allergies PAST SURGICAL HISTORY Procedure Laterality Date - NONE FAMILY HISTORY Problem Relation Age of Onset - None Mother - Hypertension Father - Heart Paternal Grandfather - Stroke Paternal Grandfather - None Brother - None Brother Social History Socioeconomic History Marital status: Spouse name: Not on file Number of children: Not on file Years of education: Not on file Highest education level: Not on file Occupational History Not on file Social Needs Financial resource strain: Not on file Food insecurity: Worry: Not on file Inability: Not on file Transportation needs: Medical: Not on file Non-medical: Not on file Tobacco Use Smoking status: Former Smoker Packs/day: 0.50 Years: 2.00 Pack years: 1 Types: Cigarettes Smokeless tobacco: Former User Tobacco comment: quit 2006 Substance and Sexual Activity Alcohol use: Yes Alcohol/week: 5.0 standard drinks Types: 2 Glasses of Wine (5oz) per week Drug use: No Sexual activity: Not on file Lifestyle Physical activity: Days per week: Not on file Minutes per session: Not on file Stress: Not on file Relationships Social connections: Talks on phone: Not on file Gets together: Not on file Attends baptism service: Not on file Active member of club or organization: Not on file Attends meetings of clubs or organizations: Not on file Relationship status: Not on file Intimate partner violence: Fear of current or ex partner: Not on file Emotionally abused: Not on file Physically abused: Not on file Forced sexual activity: Not on file Other Topics Concerns: Not on file Social History Narrative Not on file Current Meds fluticasone (FLONASE) 50 mcg/actuation nasal spray Use 2 Sprays in each nostril once daily. Rinse mouth after use. Objective BP 128/78 (BP Site: Right Arm, BP Position: Sitting, BP Cuff Size: Large Adult) Pulse 78 Ht 180.3 cm (5' 11) Wt 100.7 kg (222 lb) SpO2 98% BMI 30.96 kg/m? Physical Exam Constitutional: He is oriented to person, place, and time and well-developed, well-nourished, and in no distress. HENT: Head: Normocephalic and atraumatic. Eyes: Pupils are equal, round, and reactive to light. Conjunctivae and EOM are normal. Neck: Normal range of motion. Neck supple. No tracheal deviation present. No thyromegaly present. Cardiovascular: Normal rate, regular rhythm and intact distal pulses. Exam reveals no gallop and no friction rub. No murmur heard. Pulmonary/Chest: Effort normal and breath sounds normal. No stridor. No respiratory distress. He has no wheezes. Abdominal: Soft. Bowel sounds are normal. He exhibits no distension and no mass. There is no tenderness. There is no guarding. Musculoskeletal: Normal range of motion. He exhibits no edema, tenderness or deformity. Lymphadenopathy: He has no cervical adenopathy. Neurological: He is alert and oriented to person, place, and time. Gait normal. GCS score is 15. Skin: Skin is warm and dry. Psychiatric: Mood and affect normal. Nursing note reviewed. ASSESSMENT/PLAN: 1. Wellness examination - ICD9: V70.0, ICD10: Z00.00 (primary diagnosis) - Recommended introduction of regular aerobic exercise. - Discussed need and benefit for weight loss. BMI 30.96 kg/(m2) - Vaccination(s) recommended today: Influenza - will perform thru work in coming week - Follow up for annual exam in one year. Wellness form completed this AM (faxed to employer) - COMP METABOLIC PANEL - HGB A1C - CBC + DIFF - URINALYSIS WITH MICROSCOPIC - TSH, REFLEX - LIPID PANEL BASIC - VITAMIN D 25 HYDROXY 2. Obesity, Class I, BMI 30-34.9 - ICD9: 278.00, ICD10: E66.9 It was recommended to the patient to follow a heart healthy diet such as the AHA or DASH dietary pattern which is high in vegetables, fruits, low-fat dairy products, whole grains, poultry, fish, and nuts and is low in sweets, sugar-sweetened beverages, and red meats. The DASH dietary pattern is low in saturated fat, total fat, and cholesterol. It is rich in potassium, magnesium, and calcium, as well as protein and fiber. ? They were also advised to get 30 minutes of aerobic exercise of moderate intensity five times a week. If the patient is not able to do at least 30 minutes at one time, they can add up 10-minute sessions throughout the day. ? It was stated to the patient that adhering to a heart-healthy diet, regular exercise habits, avoidance of tobacco products, and maintenance of a healthy weight are crucial components of their heart disease risk reduction. 3. Seasonal allergic rhinitis due to pollen - ICD9: 477.0, ICD10: J30.1 Use of PRN Flonase. 4. Needs flu shot - ICD9: V04.81, ICD10: Z23 Accomplish thru employer. Pedro Luis Quintana Cha, MD Attending Note I evaluated the patient and personally participated in the adair components. I agree with the resident's findings and plan with the following revisions and/or additions: Additional comments in BOLD Signature: Aniceto Moore MD Date: August 20, 2019 Time: 9:40 AM Aniceto Moore MD Normal [facility] TSH Reflexon 08-20-2019 TSH Qn 2.610 uIU/mL Normal 0.358-3.740 [facility] Comment on above: Result Comment: Free T4 reflexed if TSH is less than or greater than the reference range. Performed By: #### T SHR #### [place] [address] Urinalysis Routineon 019 Bacteria LM.HPF (Urine sed) [#/Area] NONE Normal None [facility] Comment on above: Performed By: #### U RIN2 #### [place] [address] Ep Cells Urine 0.3 /hpf Normal 0.0-5.0 [facility] Comment on above: Performed By: #### U RIN2 #### [place] [address] Hyaline Cast 0.7 /lpf Normal 0.0-1.0 [facility] Comment on above: Performed By: #### U RIN2 #### [place] [address] RBC LM.HPF (Urine sed) [#/Area] 0.4 /[HPF] Normal 0.0-5.0 [facility] Comment on above: Performed By: #### U RIN2 #### [facility] [address] [place] [address] WBC LM.HPF (Urine sed) [#/Area] 0.2 /[HPF] Normal 0.0-5.0 [facility] Comment on above: Performed By: #### U RIN2 #### [facility] [address] [place] [address] Appearance (U) CLEAR Normal [facility] Comment on above: Performed By: #### U RIN2 #### [facility] [address] [place] [address] Bilirubin (U) [Mass/Vol] Negative Normal Negative [facility] Comment on above: Performed By: #### U RIN2 #### [facility] [address] [place] [address] Color (U) YELLOW Normal [facility] Comment on above: Performed By: #### U RIN2 #### [facility] [address] [place] [address] Glucose Ql (U) Negative Normal Negative [facility] Comment on above: Performed By: #### U RIN2 #### [facility] [address] [place] [address] Hemoglobin,Urine Negative Normal Negative [facility] Comment on above: Performed By: #### U RIN2 #### [place] [address] Ketone Urine Negative Normal Negative [facility] Comment on above: Performed By: #### U RIN2 #### [facility] [address] [place] [address] Leukocytes Esterase Negative Normal Negative [facility] Comment on above: Performed By: #### U RIN2 #### [facility] [address] [place] [address] Nitrites Urine Negative Normal Negative [facility] Comment on above: Performed By: #### U RIN2 #### [facility] [address] [place] [address] pH (U) 8.0 [pH] Normal 5.0-8.0 [facility] Comment on above: Performed By: #### U RIN2 #### [facility] [address] [place], [place] [address] Protein (U) [Mass/Vol] Negative Normal Negative [facility] Comment on above: Performed By: #### U RIN2 #### [facility] [address] [place], [place] [address] Specific [place], Ur 1.018 Normal 1.005-1.030 [facility] Comment on above: Performed By: #### U RIN2 #### [facility] [address] [place], [place] [address] Urobilinogen,Ur 0.2 EU/dL Normal 0.2-1.0 [facility] Comment on above: Performed By: #### U RIN2 #### [facility] [address] [place], [place] [address] Vital Signs Date Time Vital Sign Value Performing Clinician Faci lity 05-18-2025 14:47-0400 Body height 179.1 cm Mark Cantu MD Work Phone: [facility] 05-18-2025 14:47-0400 Body mass index (BMI) [Ratio] 32.62 kg/m2 Mark Cantu MD Work Phone: [facility] 05-18-2025 14:47-0400 Body weight 104.6 kg Mark Cantu MD Work Phone: [facility] 05-18-2025 14:47-0400 Diastolic blood pressure 84 mm[Hg] Mark Cantu MD Work Phone: [facility] 05-18-2025 14:47-0400 Heart rate 82 /min Mark Cantu MD Work Phone: [facility] 05-18-2025 14:47-0400 Respiratory rate 16 /min Mark Cantu MD Work Phone: [facility] 05-18-2025 14:47-0400 Systolic blood pressure 124 mm[Hg] Mark Cantu MD Work Phone: [facility] 10-28-2024 09:38-0500 Diastolic blood pressure 72 mm[Hg] Mark Cantu MD Work Phone: [facility] 10-28-2024 09:38-0500 Systolic blood pressure 108 mm[Hg] Mark Cantu MD Work Phone: [facility] 10-28-2024 09:20-0500 Body height 179.1 cm Mark Cantu MD Work Phone: [facility] 10-28-2024 09:20-0500 Body mass index (BMI) [Ratio] 33.81 kg/m2 Mark Cantu MD Work Phone: [facility] 10-28-2024 09:20-0500 Body weight 108.41 kg Mark Cantu MD Work Phone: [facility] 10-28-2024 09:20-0500 Heart rate 72 /min Mark Cantu MD Work Phone: [facility] 10-28-2024 09:20-0500 Respiratory rate 16 /min Mark Cantu MD Work Phone: [facility] 11-11-2023 08:20-0500 Body temperature 100.6 [degF] Jessica Galindo APRN.AUTOMOTIVE SOFTWARE ENGINEER Work Phone: [facility] 11-11-2023 08:20-0500 Body weight 108.41 kg Jessica Galindo APRN.AUTOMOTIVE SOFTWARE ENGINEER Work Phone: [facility] 11-11-2023 08:20-0500 Diastolic blood pressure 80 mm[Hg] Jessica Galindo APRN.AUTOMOTIVE SOFTWARE ENGINEER Work Phone: [facility] 11-11-2023 08:20-0500 Heart rate 128 /min Jessica Galindo APRN.AUTOMOTIVE SOFTWARE ENGINEER Work Phone: [facility] 11-11-2023 08:20-0500 Respiratory rate 18 /min Jessica Galindo APRN.AUTOMOTIVE SOFTWARE ENGINEER Work Phone: [facility] 11-11-2023 08:20-0500 SaO2% (BldA) [Mass fraction] 97 % Jessica Galindo APRN.AUTOMOTIVE SOFTWARE ENGINEER Work Phone: [facility] 11-11-2023 08:20-0500 Systolic blood pressure 132 mm[Hg] Jessica Galindo APRN.CNP Work Phone: [facility] 08-28-2023 08:13-0400 Diastolic blood pressure 88 mm[Hg] Mark Cantu MD Work Phone: [facility] 08-28-2023 08:13-0400 Systolic blood pressure 132 mm[Hg] Mark Cantu MD Work Phone: [facility] 08-28-2023 07:57-0400 Body height 179.1 cm Mark Cantu MD Work Phone: [facility] 08-28-2023 07:57-0400 Body weight 104.78 kg Mark Cantu MD Work Phone: [facility] 08-28-2023 07:57-0400 Heart rate 64 /min Mark Cantu MD Work Phone: [facility] 08-28-2023 07:57-0400 Respiratory rate 16 /min Mark Cantu MD Work Phone: [facility] 07-06-2023 11:51-0400 Body weight 101.61 kg Mark Cantu MD Work Phone: [facility] 07-06-2023 11:51-0400 Diastolic blood pressure 90 mm[Hg] Mark Cantu MD Work Phone: [facility] 07-06-2023 11:51-0400 Heart rate 60 /min Mark Cantu MD Work Phone: [facility] 07-06-2023 11:51-0400 Respiratory rate 16 /min Mark Cantu MD Work Phone: [facility] 07-06-2023 11:51-0400 SaO2% (BldA) [Mass fraction] 97 % Mark Cantu MD Work Phone: [facility] 07-06-2023 11:51-0400 Systolic blood pressure 128 mm[Hg] Mark Cantu MD Work Phone: [facility] 02-01-2023 12:03-0400 Body temperature 97.39 [degF] Mary Pruitt PA-C Work Phone: [facility] 02-01-2023 12:03-0400 Body weight 96.62 kg Mary Pruitt PA-C Work Phone: [facility] 02-01-2023 12:03-0400 Diastolic blood pressure 82 mm[Hg] Mary Pruitt PA-C Work Phone: [facility] 02-01-2023 12:03-0400 Heart rate 60 /min Marymadi Pruitt PA-C Work Phone: [facility] 02-01-2023 12:03-0400 Respiratory rate 16 /min Mary Pruitt PA-C Work Phone: [facility] 02-01-2023 12:03-0400 Systolic blood pressure 120 mm[Hg] Mary Pruitt PA-C Work Phone: [facility] 08-28-2022 15:16-0400 Diastolic blood pressure 84 mm[Hg] Mark Cantu MD Work Phone: [facility] 08-28-2022 15:16-0400 Systolic blood pressure 122 mm[Hg] Mark Cantu MD Work Phone: [facility] 08-28-2022 14:50-0400 Body weight 106.14 kg Mark Cantu MD Work Phone: [facility] 08-28-2022 14:50-0400 Heart rate 72 /min Mark Cantu MD Work Phone: [facility] 08-28-2022 14:50-0400 Respiratory rate 14 /min Mark Cantu MD Work Phone: [facility] 03-28-2022 16:34-0400 Diastolic blood pressure 86 mm[Hg] Familia Mercado MD Work Phone: [facility] 03-28-2022 16:34-0400 Systolic blood pressure 130 mm[Hg] Familia Mercado MD Work Phone: [facility] 03-28-2022 16:16-0400 Body weight 104.78 kg Familia Mercado MD Work Phone: [facility] 03-28-2022 16:16-0400 Heart rate 64 /min Familia Mercado MD Work Phone: [facility] 03-28-2022 16:16-0400 Respiratory rate 16 /min Familia Mercado MD Work Phone: [facility] Encounters Encounter Date Encounter Type Care Provider Facility Start: 09-03-2025 End: [facility]03[facility] Start: 05-19-2025 End: 05-22-2025 Follow-up encounter Mary Pruitt PA-C Work Phone: [facility] Comment on above: Results Start: 05-18-2025 Encounter for genera l adult medical examination without abnormal findings MARK CANTU [facility] Start: 05-18-2025 End: 05-18-2025 ambulatory MARK CANTU Facility:[facility] Start: 05-18-2025 End: 05-18-2025 Patient encounter procedure Mark Cantu MD Work Phone: [facility] Comment on above: Well adult exam (Gypsy vahid Dx); Hyperlipidemia, mixed; Ex-smoker; Obesity, Class I, BMI 30-34.9; Encounter for screening examination for other mental health and behavioral disorders; Screening for depression; Encounter for screening for diabetes mellitus; Screening for prostate cancer Start: 05-18-2025 End: 05-18-2025 Patient encounter status Mark Cantu MD Work Phone: [facility] Start: 05-18-2025 End: 05-18-2025 Telephone encounter Mark Cantu MD Work Phone: [facility] Comment on above: Orders Start: 05-18-2025 End: 05-18-2025 ambulatory MARK CANTU Facility:[facility] Start: 11-21-2024 End: 11-21-2024 Telephone encounter Karissa De La Fuente APRN.CNP Work Phone: [facility] Comment on above: Forms Start: 11-11-2024 End: 11-11-2024 Telephone encounter Karissa Sudhakar MACK Work Phone: [facility] Comment on above: Results Start: 11-10-2024 End: 11-10-2024 ambulatory MARK CANTU Facility:[facility] Start: 11-07-2024 End: 11-07-2024 Telephone encounter Vera Galindo MA [facility] Comment on above: Appointment Start: 11-03-2024 End: 11-03-2024 Chart abstracting Mark Cantu MD Work Phone: [facility] Comment on above: Consult Start: 11-03-2024 ambulatory Danny Beny Hensons Fac ility:[facility] Start: 11-03-2024 End: 11-04-2024 Evaluation and management of inpatient Danny Beny Donisaccs Facility:[facility] Start: 11-01-2024 ambulatory Danny Beny Weaveremelias Fac ility:[facility] Start: 11-01-2024 End: 11-01-2024 ambulatory SELF Facility:[facility] Start: 11-01-2024 End: 11-01-2024 Patient encounter procedure Donte Beckham MD Work Phone: [facility] Comment on above: Abdominal pain, unsp ecified abdominal location (Primary Dx) Start: 10-28-2024 End: 10-29-2024 Telephone encounter Mark Cantu MD Work Phone: [facility] Comment on above: Results Start: 10-28-2024 End: 10-28-2024 ambulatory MARK CANTU Facility:[facility] Start: 10-28-2024 End: 10-28-2024 Patient encounter procedure Mark Cantu MD Work Phone: [facility] Comment on above: Well adult exam (Gypsy vahid Dx); Seasonal allergic rhinitis due to pollen; Obesity, Class I, BMI 30-34.9; Screening for prostate cancer; Encounter for screening for diabetes mellitus; Encounter for lipid screening for cardiovascular disease Start: 10-28-2024 End: 10-28-2024 Patient encounter status Mark Cantu MD Work Phone: [facility] Work Phone: Start: 11-11-2023 End: 11-11-2023 Patient encounter procedure Jessica Galindo [facility] Work Phone: [facility] Comment on above: Rhinosinusitis (Prim santino Dx) Start: 10-13-2023 Telephone encounter Mark Cantu MD Work Phone: [facility] Comment on above: Results Start: 08-28-2023 End: 08-28-2023 Patient encounter procedure Mark Cantu MD Work Phone: [facility] Comment on above: Well adult exam (Gypsy vahid Dx); Obesity, Class I, BMI 30-34.9; Seasonal allergic rhinitis due to pollen; Encounter for screening for diabetes mellitus; Screening for prostate cancer; Encounter for lipid screening for cardiovascular disease; Acute right ankle pain; Excessive ear wax, left Start: 08-28-2023 End: 08-28-2023 Patient encounter status Mark Cantu MD Work Phone: [facility] Work Phone: Start: 08-22-2023 Telephone encounter Mark Cantu MD Work Phone: [facility] Comment on above: Orders Start: 07-06-2023 Telephone encounter Mary cerda PA-C Work Phone: [facility] Comment on above: Results Start: 07-06-2023 End: 07-06-2023 Subsequent hospital visit by physician Lida [facility] Work Phone: Radiology Comment on above: Acute right ankle pa in [M25.571] Start: 07-06-2023 End: 07-06-2023 Patient encounter procedure Mark Cantu MD Work Phone: [facility] Comment on above: Acute right ankle pa in (Primary Dx) Start: 02-01-2023 End: 02-01-2023 Patient encounter procedure Mary Pruitt PA-C Work Phone: [facility] Comment on above: Irritation, nose (Pr imary Dx) Start: 08-29-2022 Telephone encounter Mark Cantu MD Work Phone: [facility] Comment on above: Results Start: 08-28-2022 End: 08-28-2022 Patient encounter procedure Mark Cantu MD Work Phone: [facility] Comment on above: Well adult exam ([facility] vahid Dx); Fatigue, unspecified type; Seasonal allergic rhinitis due to pollen; Obesity, Class I, BMI 30-34.9; Ex-smoker; Encounter for screening for diabetes mellitus; Encounter for lipid screening for cardiovascular disease; Screening for prostate cancer Start: 08-28-2022 End: 08-28-2022 Patient encounter status Mark Cantu MD Work Phone: [facility] Start: 03-28-2022 End: 03-28-2022 Patient encounter procedure Familia Mercado MD Work Phone: [facility] Comment on above: Inguinal pain, unspe cified laterality (Primary Dx) Start: 08-19-2021 Patient encounter status Forest Mercado MD Work Phone: [facility] Work Phone: Start: 12-10-2020 End: 12-10-2020 Subsequent hospital visit by physician Lida [facility] Work Phone: Radiology Comment on above: Acute pain of right knee [M25.561] Procedures Date Procedure Procedure Detail Performing Clinician Start: 05-18-2025 Adult depression scr eening assessment Mark Cantu MD Work Phone: Start: 05-18-2025 Lipid 1996 panel - S gareth or Plasma Mark Cantu MD Work Phone: Start: 10-28-2024 Lipid 1996 panel - S gareth or Plasma Mark Cantu MD Work Phone: Start: 10-12-2023 Lipid 1996 panel - S gareth or Plasma Mark Cantu MD Work Phone: Start: 07-06-2023 Radex ankle complete minimum 3 views Mark Cantu MD Work Phone: Start: 08-28-2022 Lipid 1996 panel - S gareth or Plasma Mark Cantu MD Work Phone: Start: 08-13-2021 Adult depression scr eening assessment Familia Mercado MD Work Phone: Start: 12-10-2020 Radiologic examinati on knee 1/2 views Awilda Glez APRN.CNP Work Phone: Plan of Treatment Date Care Activity Detail Author Start: 05-18-2030 Lipid panel Lipid Screening [facility] Start: 10-28-2029 Lipid panel Lipid Screening [facility] Start: 10-12-2028 Lipid 1996 panel - Serum or Plasma Lipid Screening [facility] Start: 10-12-2028 Lipid panel Lipid Screening [facility] Start: 08-28-2027 Lipid 1996 panel - Serum or Plasma Lipid Screening [facility] Start: 08-28-2027 LIPID SCREEN LIPID SCREEN [facility] Start: 08-17-2026 LIPID SCREEN LIPID SCREEN [facility] Start: 05-25-2026 Urine microalbumin profile DTaP,Tdap,Td Vaccine (5 - Td or Tdap) [facility] Start: 05-20-2026 End: 05-20-2026 Patient encounter procedure 05/20/2026 9:00 AM EDT Office Visit [facility] [address] [place] [address] Mark Cantu MD [address] [place] [phone] Wellness [facility] Comment on above: Wellness Start: 05-18-2026 Anxiety Screening Anxiety Screening [facility] Start: 05-18-2026 Depression Screening Depression Scre ening [facility] Start: 05-07-2026 End: 08-06-2026 Comprehensive metabolic 2000 panel - Serum or Plasma COMPREHENSIVE METABOLIC PANEL Lab Routine Hyperlipidemia, mixed Expected: 05/07/2026, Expires: 08/06/2026 [facility] Work Phone: Comment on above: Expected: 05/07/2026 , Expires: 08/06/2026 Start: 05-07-2026 End: 08-06-2026 Hemoglobin A1c in Blood HEMOGLOBIN A1C Lab Routine Well adult exam Encounter for screening for diabetes mellitus Expected: 05/07/2026, Expires: 08/06/2026 [facility] Comment on above: Expected: 05/07/2026 , Expires: 08/06/2026 Start: 05-07-2026 End: 08-06-2026 LIPID PANEL, NONFASTING LIPID PANEL, NONFASTING Lab Routine Hyperlipidemia, mixed Expected: 05/07/2026, Expires: 08/06/2026 [facility] Comment on above: Expected: 05/07/2026 , Expires: 08/06/2026 Start: 05-07-2026 End: 08-06-2026 Prostate specific Ag [Mass/volume] in Serum or Plasma PROSTATE-SPECIFIC ANTIGEN DIAGNOSTIC Lab Routine Well adult exam Screening for prostate cancer Expected: 05/07/2026, Expires: 08/06/2026 [facility] Comment on above: Expected: 05/07/2026 , Expires: 08/06/2026 Start: 05-07-2026 End: 08-06-2026 Urinalysis complete panel - Urine URINALYSIS, WITH MICROSCOPIC Lab Routine Hyperlipidemia, mixed Expected: 05/07/2026, Expires: 08/06/2026 [facility] Comment on above: Expected: 05/07/2026 , Expires: 08/06/2026 Start: 10-28-2025 Anxiety Screening Anxiety Screening [facility] Comment on above: Postponed from 03/21 (Declined at this time) Start: 10-28-2025 End: 10-28-2025 Patient encounter procedure 10/28/2025 8:40 AM EST Office [facility] [address] [place] [address] Mark Cantu MD [address] [place] [address] [facility] Comment on above: Physical Start: 10-09-2025 End: 01-08-2026 Hemoglobin A1c in Blood HEMOGLOBIN A1C Lab Routine Well adult exam Encounter for screening for diabetes mellitus Expected: 10/09/2025, Expires: 01/08/2026 [facility] Comment on above: Expected: 10/09/2025 , Expires: 01/08/2026 Start: 10-09-2025 End: 01-08-2026 LIPID PANEL, NONFASTING LIPID PANEL, NONFASTING Lab Routine Well adult exam Encounter for lipid screening for cardiovascular disease Expected: 10/09/2025, Expires: 01/08/2026 [facility] Comment on above: Expected: 10/09/2025 , Expires: 01/08/2026 Start: 10-09-2025 End: 01-08-2026 Prostate specific Ag [Mass/volume] in Serum or Plasma PROSTATE-SPECIFIC ANTIGEN DIAGNOSTIC Lab Routine Well adult exam Screening for prostate cancer Expected: 10/09/2025, Expires: 01/08/2026 [facility] Comment on above: Expected: 10/09/2025 , Expires: 01/08/2026 Start: 05-18-2025 End: 05-18-2025 Patient encounter procedure 05/18/2025 2:40 PM EDT Office Visit [facility] [address] [place] [address] Mark Cantu MD [address] [place] [id number] Physical Family [facility] Comment on above: Physical Start: 05-18-2025 End: 08-17-2025 Comprehensive metabolic 2000 panel - Serum or Plasma [facility] Comment on above: Expected: 05/18/2025 , Expires: 08/17/2025 Start: 05-18-2025 End: 08-17-2025 Hemoglobin A1c in Blood [facility] Comment on above: Expected: 05/18/2025 , Expires: 08/17/2025 Start: 05-18-2025 End: 08-17-2025 LIPID PANEL, NONFASTING [facility] Work Phone: Comment on above: Expected: 05/18/2025 , Expires: 08/17/2025 Start: 05-18-2025 End: 08-17-2025 PSA/PROSTATE SPECIFIC ANTIGEN SCREENING [facility] Comment on above: Expected: 05/18/2025 , Expires: 08/17/2025 Start: 05-18-2025 End: 08-17-2025 Urinalysis complete panel - Urine URINALYSIS, WITH MICROSCOPIC Lab Routine Hyperlipidemia, mixed Expected: 05/18/2025, Expires: 08/17/2025 [facility] Comment on above: Expected: 05/18/2025 , Expires: 08/17/2025 Start: 11-15-2024 Covid-19 Vaccine () Covid-19 Vaccine () [facility] Comment on above: Postponed from 07/13 (Declined at this time) Start: 11-10-2024 End: 11-10-2024 Patient encounter procedure 11/10/2024 1:40 PM EST Office Visit Family [facility] [address] [place], [place] [phone] Karissa De La Fuente APRN.[facility] [address] [place], [place] [phone] [facility] hospital follow up [facility] Comment on above: [facility] hospital follow up Start: 10-28-2024 Depression Screening Depression Scre [facility] Comment on above: Postponed from 03/21 (Declined at this time) Start: 10-28-2024 End: 01-27-2025 Hemoglobin A1c in Blood [facility] Comment on above: Expected: 10/28/2024 , Expires: 01/27/2025 Start: 10-28-2024 End: 01-27-2025 LIPID PANEL, NONFASTING [facility] Work Phone: Comment on above: Expected: 10/28/2024 , Expires: 01/27/2025 Start: 10-28-2024 End: 01-27-2025 PSA/PROSTATE SPECIFIC ANTIGEN SCREENING [facility] Comment on above: Expected: 10/28/2024 , Expires: 01/27/2025 Start: 10-28-2024 End: 10-28-2024 Patient encounter procedure 10/28/2024 9:20 AM EST Office Visit [facility] [address] [facility], [place] [phone] Mark Cantu MD [address] [place], [place] [phone] Physical - per patient requested October [facility] Comment on above: Physical - per patie nt requested October Start: 10-20-2024 End: 10-20-2024 Patient encounter procedure 10/20/2024 8:00 AM EST Office Visit [facility] [address] [facility] [place] [address] Mark Cantu MD [address] [place], [place] [phone] Physical - per patient requested October [facility] Comment on above: Physical - per patie nt requested October Start: 07-13-2024 Covid-19 Vaccine ( season) Covid-19 Vaccine () [facility] Start: 07-13-2024 Covid-19 Vaccine () Covid-19 Vaccine () [facility] Start: 11-12-2023 Behavioral Health Screening Behavioral Health Screening [facility] Start: 11-03-2023 Urine microalbumin profile DTAP,TDAP,TD (3 - Td or Tdap) [facility] Start: 08-28-2023 COVID-19 VACCINE (#1) COVID-19 VACCI NE (#1) [facility] Comment on above: Postponed from 09/21 (Declined at this time) Start: 08-28-2023 End: 11-27-2023 Hemoglobin A1c in Blood HGB A1C Lab Routine Well adult exam Encounter for screening for diabetes mellitus Expected: 08/28/2023, Expires: 11/27/2023 [facility] Work Phone: Comment on above: Expected: 08/28/2023 , Expires: 11/27/2023 Start: 08-28-2023 End: 11-27-2023 LIPID PANEL, NONFASTING LIPID PANEL, NONFASTING Lab Routine Well adult exam Encounter for lipid screening for cardiovascular disease Expected: 08/28/2023, Expires: 11/27/2023 [facility] Work Phone: Comment on above: Expected: 08/28/2023 , Expires: 11/27/2023 Start: 08-28-2023 End: 11-27-2023 Prostate specific Ag [Mass/volume] in Serum or Plasma PSA/PROSTSPECAG DIAG Lab Routine Well adult exam Screening for prostate cancer Expected: 08/28/2023, Expires: 11/27/2023 [facility] Work Phone: Comment on above: Expected: 08/28/2023 , Expires: 11/27/2023 Start: 08-28-2022 End: 10-28-2022 CBC W Auto Differential panel - Blood [facility] Work Phone: Comment on above: Expected: 08/28/2022 , Expires: 10/28/2022 Start: 08-28-2022 End: 10-28-2022 Fasting glucose [Mass/volume] in Serum or Plasma [facility] Work Phone: Comment on above: Expected: 08/28/2022 , Expires: 10/28/2022 Start: 08-28-2022 End: 10-28-2022 Hemoglobin A1c in Blood [facility] Work Phone: Comment on above: Expected: 08/28/2022 , Expires: 10/28/2022 Start: 08-28-2022 End: 10-28-2022 LIPID PANEL, NONFASTING [facility] Work Phone: Comment on above: Expected: 08/28/2022 , Expires: 10/28/2022 Start: 08-28-2022 End: 10-28-2022 Prostate specific Ag [Mass/volume] in Serum or Plasma [facility] Work Phone: Comment on above: Expected: 08/28/2022 , Expires: 10/28/2022 Start: 08-28-2022 End: 10-28-2022 Thyrotropin [Units/volume] in Serum or Plasma [facility] Work Phone: Comment on above: Expected: 08/28/2022 , Expires: 10/28/2022 Start: 08-19-2022 COVID-19 VACCINE (#1) COVID-19 VACCI NE (#1) [facility] Comment on above: Postponed from 03/21 (Declined at this time) Start: 08-13-2022 Adult depression screening assessment DEPRESSION SCREENING [facility] Start: 1999 Anxiety Screening Anxiety Screening [facility] Start: 1999 Depression Screening Depression Scre ening [facility] Start: 1981 Covid-19 Vaccine (#1) Covid-19 Vacci ne (#1) [facility] Removal impacted cerumen irrigation/lvg unilat AMBULATORY EAR LAVAGE/IRRIGATION Procedures Routine Excessive ear wax, left Ordered: 08/28/2023 [facility] Work Phone: Comment on above: Ordered: 08/28/2023 [facility] Immunizations Immunization Date Immunization Notes Care Provider Fa marco 07-12-2020 influenza, seasonal, injectable Familia Mercado MD Work Phone: [facility] 05-25-2016 tetanus toxoid, redu patricia diphtheria toxoid, and acellular pertussis vaccine, adsorbed Mark Cantu MD Work Phone: [facility] 11-03-2013 tetanus and diphther ia toxoids, adsorbed, preservative free, for adult use (2 Lf of tetanus toxoid and 2 Lf of diphtheria toxoid) Familia Mercado MD Work Phone: [facility] 10-20-2008 tetanus toxoid, redu patricia diphtheria toxoid, and acellular pertussis vaccine, adsorbed Familia Mercado MD Work Phone: [facility] 09-08-1996 TD(adult) unspecifie d formulation Mark Cantu MD Work Phone: [facility] Payers Date Payer Category Payer Unknown [id number] 2024 Self-pay 2019 Private Health Insurance [employer] A ETNA CHOICE POS II [id number] 2019-Present [phone] [address] [place] [address] POS [id number] 2019 Private Health Insurance [id number] 2019 Private Health Insurance [id number] Unknown [id number] 62 Unknown [id number] 62 Unknown [id number] 62 Unknown [id number] 62 Unknown [id number] 62 Unknown [id number] 62 Unknown [id number] 62 Social History Date Type Detail Facility Start: 03-28-2013 End: 10-28-2024 Tobacco smoking status NHIS Ex-smoker [facility] History of tobacco use Cigarette Smoker [facility] Start: 03-28-2013 End: 07-06-2023 Cigarettes smoked current (pack per day) - Reported 0.5 [facility] Work Phone: Start: 03-28-2013 End: 10-28-2024 Tobacco use and exposure Former smokeless tobacco user [facility] Start: 03-28-2022 End: 05-18-2025 Alcohol intake Current drinker of alcohol (finding) [facility] Start: 1981 Sex Assigned At Not on file [facility] History of tobacco use Current smoker [facility] Start: 08-28-2022 Tobacco Comment quit 2005 [facility] Start: 11-10-2020 End: 08-28-2022 Exposure to SARS-CoV-2 (event) Not sure [facility] Start: 07-06-2023 End: 05-18-2025 Tobacco use panel [facility] Work Phone: Adult Depression Screening Assessment 0 [facility] Work Phone: Start: 05-18-2025 Alcohol Comment very little [facility] Functional Status Date Assessment Result Facility 12-28-2017 Are you deaf, or do you have serious difficulty hearing No 12/28/2017 12:59 PM Doc Diallo III, MD No [facility] 12-28-2017 Are you blind, or do you have serious difficulty seeing, even when wearing glasses No 12/28/2017 12:59 PM Doc Diallo III, MD No [facility] 12-28-2017 Do you have serious difficulty walking or climbing stairs No 12/28/2017 12:59 PM Doc Diallo III, MD No [facility] 12-28-2017 Do you have difficul ty dressing or bathing No 12/28/2017 12:59 PM Doc Diallo III, MD No [facility] 12-28-2017 Because of a physica l, mental, or emotional condition, do you have difficulty doing errands alone such as visiting a physician's office or shopping No 12/28/2017 12:59 PM Doc Diallo III, MD [facility] Mental Status Date Assessment Result Facility 12-28-2017 Because of a physica l, mental, or emotional condition, do you have serious difficulty concentrating, remembering, or making decisions No 12/28/2017 12:59 PM Doc Diallo III, MD [facility] Clinical Notes 09-03-2014 to 09-03-2025 Telephone Encounter - Ana Cristina Banks MA - 05/21/2025 10:35 AM EDTTelephone Encounter - Ana Cristina Banks MA - 05/21/2025 10:35 AM EDTTelephone Encounter - Ana Cristina Banks MA - 05/19/2025 12:00 PM EDT Note Date & Type Note Facility 09-03-2025 Note HNO ID: [id number] Author: MARK DOMINGO APRN.AUTOMOTIVE SOFTWARE ENGINEER Service: ? Author Type: Nurse Practitioner Type: Progress Notes Filed: 09/03/2025 18:48 Note Text: [facility] Roach is a 45 year old male. Patient presents with: Head Congestion: Fever, sinus pressure, R ear pain x2 days HPI Nontoxic-appearing 45-year-old male presents urgent care chief plaint cough sinus pressure right ear pain. Duration of symptoms 2 days. Associate symptoms cough sinus pressure right ear pain fever body aches chills fatigue. Symptoms started abruptly. OTC medication Sudafed PE. Unknown sick contacts. Does work in the public. Denies any productive cough chest pain shortness of breath pleuritic pain or hemoptysis. No loss hearing otorrhea. Past medical history prescription medications allergies reviewed. Review of Systems Constitutional: Positive for chills, fatigue and fever. Negative for diaphoresis. HENT: Positive for congestion, ear pain, sinus pressure and sinus pain. Negative for ear discharge, rhinorrhea, sneezing and sore throat. Eyes: Negative for pain, discharge, redness, itching and visual disturbance. Respiratory: Negative for cough, chest tightness, shortness of breath and wheezing. Cardiovascular: Negative for chest pain. Gastrointestinal: Negative for abdominal pain, constipation, diarrhea, nausea and vomiting. Musculoskeletal: Negative for joint swelling, neck pain and neck stiffness. Skin: Negative for rash. Neurological: Positive for headaches. Negative for dizziness and weakness. Objective BP 131/87 Pulse 110 Temp (!) 38.6 ?C (101.4 ?F) Resp 18 Wt 105 kg (231 lb 7.7 oz) SpO2 97% BMI 32.74 kg/m? Physical Exam Constitutional: Appearance: Normal appearance. HENT: Head: Normocephalic. Ears: Comments: Unable to visualize bilateral TMs due to cerumen impaction. No tragal tenderness or otorrhea. Nose: Nose normal. No congestion or rhinorrhea. Mouth/Throat: Mouth: Mucous membranes are moist. Pharynx: Oropharynx is clear. Uvula midline. No pharyngeal swelling, oropharyngeal exudate, posterior oropharyngeal erythema or uvula swelling. Eyes: Conjunctiva/sclera: Conjunctivae normal. Cardiovascular: Rate and Rhythm: Normal rate. Pulmonary: Effort: Pulmonary effort is normal. Breath sounds: Normal breath sounds. No wheezing, rhonchi or rales. Abdominal: Palpations: Abdomen is soft. Tenderness: There is no abdominal tenderness. There is no guarding or rebound. Musculoskeletal: General: Normal range of motion. Cervical back: Normal range of motion and neck supple. No rigidity. Lymphadenopathy: Cervical: No cervical adenopathy. Skin: General: Skin is warm. Findings: No rash. Neurological: Mental Status: He is alert. {ASSESSMENT/PLAN: 1. Otalgia, right - ICD9: 388.70, ICD10: H92.01 Diagnosis otalgia right ear. Unable to visualize TM. With fever and pain will place on Augmentin. We discussed returning for ear lavage. We discussed the possibility of this being a viral illness. Patient was educated on supportive therapies. Patient will follow up with primary care provider as needed. Patient was instructed to immediately proceed to emergency room for any new, worsening, or symptoms lasting longer than anticipated. The patient's clinical presentation is otherwise unremarkable at this time. Based on exam and clinical finding, the patient is stable for discharge. Plan of care was discussed with patient. Patient verbalizes understanding and agrees to plan of care. This note was generated using [employer] software. It may contain errors in wording, punctuation, or spelling. Mark Domingo APRN.AUTOMOTIVE SOFTWARE ENGINEER [facility] Procedures [facility] 05-21-2025 Telephone encounter Note Pt has been called and notified of results below, verbalized understanding. Pt did not view message, so made him aware he may see a message but this is regarding his results. Pt made aware that PCP will complete Wellness Form. Once complete we will call and notify him, then he can case picker at Medical Records. Ana Cristina Banks MA [facility] 05-21-2025 Miscellaneous Notes Pt has been called and notified of results below, verbalized understanding. Pt did not view message, so made him aware he may see a message but this is regarding his results. Pt made aware that PCP will complete Wellness Form. Once complete we will call and notify him, then he can case picker at Medical Records. Ana Cristina Banks MA [employer] message sent to pt with results and recommendations below from Provider. Will watch for pt to view message. Once viewed will close encounter. If not viewed, will call pt to notify. Pt has Wellness form yet to be completed. Notified pt in Mychart message that office will update him when PCP completes for case picker at [facility]. Ana Cristina Banks MA Let patient know that his cholesterol is elevated but stable. Need to continue to work on his diet and lower saturated fats. The rest of his labs are normal. Thanks. Mary Pruitt PA-C documented in this encounter [facility] 05-19-2025 Telephone encounter Note [employer] message sent to pt with results and recommendations below from Provider. Will watch for pt to view message. Once viewed will close encounter. If not viewed, will call pt to notify. Pt has Wellness form yet to be completed. Notified pt in [employer] message that office will update him when PCP completes for case picker at [facility]. Ana Cristina Banks MA [facility] 05-19-2025 Telephone encounter Note Let patient know that his cholesterol is elevated but stable. Need to continue to work on his diet and lower saturated fats. The rest of his labs are normal. Thanks. Mary Pruitt PA-C [facility] Work Phone: 05-18-2025 Instructions Mark Cantu MD - 05/18/2025 3:07 PM EDT Please get labs and urine test done on or after 05/07/2026 prior to your next visit. We discussed your annual physical and lab work: - Your labs were completed this morning after fasting for approximately 10.5 hours. I will review the results once they are available, likely late tonight or early tomorrow morning. - I will prepare a copy of your lab results for you to case picker at the office. Please let us know when you plan to come by. We discussed your immunizations: - Your tetanus vaccine is up to date and will be due next year. We discussed your medical history: - You reported no new surgeries, health concerns, or changes in your family medical history over the past year. - You confirmed no recent symptoms, including fevers, headaches, vision or hearing changes, respiratory issues, chest pain, gastrointestinal symptoms, urinary changes, joint or muscle pain, skin issues, or neurological concerns. We discussed your smoking history: - You confirmed that you no longer smoke. Follow-up: - I will contact you with your lab results once they are reviewed. If you have any questions or concerns in the meantime, please reach out to our office. documented in this encounter [facility] 05-18-2025 History of Presen t illness Narrative Chief Complaint Patient presents with: Well Adult HPI Mg Roach is a 45 year old male who presents here today for a Physical and chronic health issues. . Labs currently in process. Patient with Hx of Seasonal allergies, Obesity, Small bowel obstruction, ex-smoker as well as those reviewed and addressed below in ROS. Pt seen by Karissa De La Fuente CNP in October after being admitted into [facility] [place] for SBO, Hypokalemia, elevated LFT's, and elevated TSH. Labs were completed at that visit and were normal. Seasonal allergies controlled with Flonase as needed and Sinus Rinse. Brought Wellness form to be completed into office today for work. Mg completed fasting labs this morning, fasting for approximately 10.5 hours. He is requesting completion of his work health form and plans to pick it up in person. He is currently in the process of moving to a new residence in [place], approximately 3 miles from his current location near [facility]. He denies any surgeries in the past year and is not aware of any new health issues in his blood relatives. He confirms that his maternal and paternal grandparents are . He denies any family history of prostate cancer. He denies recent fevers, frequent headaches, sudden changes in hearing or vision, issues with his nose or throat, lumps or swelling in his neck, wheezing, dyspnea, hemoptysis, or colomycus. He also denies chest pain, palpitations, or leg swelling. He reports no frequent nausea, emesis, diarrhea, or heartburn, and has not noticed any blood in his urine, discomfort with urination, or a sudden increase in urinary frequency. He denies any unusual muscle or joint aches, skin lesions, rashes, or sores. In the past two weeks, he has not felt nervous or on edge, nor has he been worrying excessively. He denies any easy bruising or bleeding that is new or different from usual, and has not experienced any changes in his tolerance to heat or cold. He reports no recent increase in thirst, syncope, seizures, or tremors. He is a nonsmoker. His tetanus vaccination is up to date until next year. Past medical history, appointments, medications, allergies reviewed. Previous Medical History PAST MEDICAL HISTORY Diagnosis Date Ex-smoker 08/19/2021 Started age 21 about a pack a week quit age 25 Hyperlipidemia, mixed 10/28/2024 Obesity, Class I, BMI 30-34.9 08/20/2019 Seasonal allergic rhinitis due to pollen 08/20/2018 Previous Surgical History PAST SURGICAL HISTORY Procedure Laterality Date TONSILLECTOMY HX Family History FAMILY HISTORY Problem Relation Age of Onset None Mother Hypertension Father Hyperlipidemia Father None Brother None Brother Alzheimer's Disease Maternal Grandfather Coronary Artery Disease Paternal Grandfather 80's Stroke Paternal Grandfather Colon Cancer No Family History Prostate Cancer No Family History Breast Cancer No Family History Ovarian cancer No Family History Diabetes No Family History Kidney Disease No Family History Seizures No Family History Thyroid No Family History Patient Allergies ALLERGIES Allergen Reactions Seasonal Allergies Other: See Comments runny nose and sneezing Current Medications Current Outpatient Medications on File Prior to Visit Medication Sig sod yyhac-ezshuj-lwjeaf bottle (NEILMED SINUS RINSE COMPLETE) pkdv Dissolve one packet or sachet in 8 oz (240 mL) or lukewarm distilled, previously boiled or bottled water. Use as directed per package instructions fluticasone (FLONASE) 50 mcg/actuation nasal spray Use 2 Sprays in each nostril once daily. Rinse mouth after use. No current facility-administered medications on file prior to visit. Social History Social History Tobacco Use Smoking status: Former Current packs/day: 0.50 Average packs/day: 0.5 packs/day for 2.0 years (1.0 ttl pk-yrs) Types: Cigarettes Smokeless tobacco: Former Tobacco comments: quit 2006 Vaping Use Vaping status: Never Used Substance Use Topics Alcohol use: Yes Alcohol/week: 2.0 standard drinks of alcohol Types: 2 Glasses of Wine (5oz) per week Comment: very little Drug use: No Review of Symptoms REVIEW OF SYSTEMS GENERAL: No weight loss, malaise or fevers HEENT: Negative for frequent or significant headaches, No changes in hearing or vision, no nose bleeds or other nasal problems NECK: Negative for lumps, goiter, pain and significant neck swelling RESPIRATORY: Negative for cough, hemoptysis, wheezing, COPD, dyspnea or shortness of breath CARDIOVASCULAR: Negative for chest pain, leg swelling, hypertension, CHF or palpitations GI: No nausea, vomiting, or diarrhea and No heartburn or reflux symptoms : No history of dysuria, frequency or blood. MUSCULOSKELETAL: Negative for joint pain or swelling, back pain or muscle pain SKIN: Negative for lesions, rash, and itching PSYCH: Negative for sleep disturbance, mood disorder and recent psychosocial stressors HEMATOLOGY/LYMPHOLOGY: Negative for prolonged bleeding, bruising easily or swollen nodes ENDOCRINE: Negative for cold or heat intolerance, polyuria, polydipsia and goiter NEURO: No history of headaches, syncope, paralysis, seizures or tremors SEE HPI EXAM: BP 124/84 (BP Site: Right Arm, BP Position: Sitting, BP Cuff Size: Large Adult) Pulse 82 Resp 16 Ht 179.1 cm (5' 10.5) Wt 104.6 kg (230 lb 9.6 oz) BMI 32.62 kg/m Last 6 Encounter Wt Readings: Date: Wt: 05/18/2025 104.6 kg (230 lb 9.6 oz) 11/10/2024 103.9 kg (229 lb) 10/28/2024 108.4 kg (239 lb) 11/15/2023 109.8 kg (242 lb) 11/11/2023 108.4 kg (239 lb) 11/09/2023 108.2 kg (238 lb 9.6 oz) General Appearance: Well appearing, alert, in no acute distress, well-hydrated, well nourished. and Obese. Skin: Skin color, texture, turgor normal, no suspicious rashes or lesions. Head: Normocephalic, no masses, lesions, tenderness or abnormalities. Eyes: Anicteric sclera. Pupils are equally round and reactive to light. Extraocular movements are intact. . Ears: External ears, TM's normal, canals clear. Nose/Sinuses: Nares normal, septum midline, mucosa normal, no drainage or sinus tenderness. Oropharynx: Lips, mucosa, and tongue normal, teeth and gums normal, oropharynx normal. Neck: Supple, no adenopathy; thyroid symmetric, normal size, no bruits. Lungs: Lungs clear to auscultation. No wheezing, rhonchi, rales.. Heart: RRR without murmur, gallop, or rubs. No ectopy. Abdomen: Normal abdominal exam, Abdomen soft, non-tender. Bowel sounds normal. No masses, organomegaly. Extremities: No deformities, edema, skin discoloration, Good capillary refill. . Musculoskeletal: Spine range of motion normal. Muscular strength intact, No joint swelling, deformity, or tenderness. Peripheral Pulses: Normal. Neurologic: Gait normal. Reflexes normal and symmetric. Sensation to light touch and crainal nerves 2-12 intact.. Genitalia: Normal, Penis normal. No urethral discharge. Scrotum normal to palpation. No hernia.. Health Maintenance List Depression Screening due on 05/18/2026 Anxiety Screening due on 05/18/2026 DTaP,Tdap,Td Vaccine(5 - Td or Tdap) due on 05/25/2026 Lipid Screening due on 05/18/2030 Hepatitis C Screening Completed HIV Screening Completed Hepatitis B Vaccine Discontinued Influenza Vaccine Discontinued Covid-19 Vaccine Discontinued Data reviewed Assessment and Plan 1. Well adult exam (Z00.00) Comprehensive physical examination performed. No acute issues identified. Patient is an ex-smoker with a history of mixed hyperlipidemia and Class I obesity. No recent surgeries or new health issues reported in family history. No recent fevers, headaches, or changes in hearing or vision. No issues with nose or throat, lumps or swelling in the neck, wheezing, shortness of breath, or hemoptysis. No chest pain, palpitations, or edema in the legs. No gastrointestinal symptoms such as nausea, vomiting, diarrhea, or heartburn. No hematuria, dysuria, or changes in urinary frequency. No musculoskeletal pain or skin lesions. No recent anxiety, excessive worrying, or changes in bleeding or bruising. No changes in heat or cold tolerance, increased thirst, syncope, seizures, or tremors. Neurological examination was normal, with intact sensation and strength in all extremities. No abnormalities detected on abdominal or genitourinary examination. - Reviewed patient's recent hospitalization in October for E. coli and norovirus infections, which required NG tube placement. - Labs ordered and completed this morning; results expected late tonight or early tomorrow. - Will complete work health form and let him know when ready to be picked up. - Follow-up appointment scheduled for May 2026 for [facility] to review lab results and discuss any necessary interventions. 2. Hyperlipidemia, mixed (E78.2) Patient has a history of mixed hyperlipidemia. - Ordered lipid panel to assess current lipid levels. Along with CMP and UA - Will review results and adjust treatment as necessary. 3. Ex-smoker (Z87.891) Patient is an ex-smoker. pt to continue to abstain. 4. Obesity, Class I, BMI 30-34.9 (E66.811) Patient has Class I obesity with a BMI of 40. - Discussed the importance of weight management and lifestyle modifications. - Will monitor weight and BMI. 5. Encounter for screening examination for other mental health and behavioral disorders (Z13.39) Screening for depression (Z13.31) No signs of anxiety, excessive worrying, or depression reported. 6. Encounter for screening for diabetes mellitus (Z13.1) No symptoms of increased thirst, polyuria, or unexplained weight loss reported. - awaiting lab results. 7. Screening for prostate cancer (Z12.5) No family history of prostate cancer reported. - Ordered PSA test to screen for prostate cancer. F/u in year or sooner if needed, check CMP, Lipid, UA A1c and PSA prior. Mark Cantu MD Recording using [employer] software for draft documentation of the visit was discussed with the patient/authorized outside dealer sales representative; all questions welcomed and answered. Patient/authorized outside dealer sales representative agreed to proceed SENSITIVE EXAMINATION CONSENT: The sensitive examination was discussed with the Patient or Patient's Authorized Supervisor [employer]. As applicable, any other physician, advance practice provider, medical student, or other health professional student that will be observing or involved in the sensitive examination for educational or training purposes was discussed with the Patient or Authorized Supervisor [employer]. The Patient or Authorized Supervisor [employer] has agreed to proceed with the sensitive examination. documented in this encounter [facility] 05-18-2025 Note HNO ID: [id number] Author: MARK CANTU MD Service: ? Author Type: Physician Type: Progress Notes Filed: 05/18/2025 23:00 Note Text: Chief Complaint Patient presents with: Well Adult HPI Mg Roach is a 45 year old male who presents here today for a Physical and chronic health issues. . Labs currently in process. Patient with Hx of Seasonal allergies, Obesity, Small bowel obstruction, ex-smoker as well as those reviewed and addressed below in ROS. Pt seen by Karissa De La Fuente CNP in October after being admitted into [facility] [place] for SBO, Hypokalemia, elevated LFT's, and elevated TSH. Labs were completed at that visit and were normal. Seasonal allergies controlled with Flonase as needed and Sinus Rinse. Brought Wellness form to be completed into office today for work. Mg completed fasting labs this morning, fasting for approximately 10.5 hours. He is requesting completion of his work health form and plans to pick it up in person. He is currently in the process of moving to a new residence in [place], approximately 3 miles from his current location near [facility]. He denies any surgeries in the past year and is not aware of any new health issues in his blood relatives. He confirms that his maternal and paternal grandparents are . He denies any family history of prostate cancer. He denies recent fevers, frequent headaches, sudden changes in hearing or vision, issues with his nose or throat, lumps or swelling in his neck, wheezing, dyspnea, hemoptysis, or colomycus. He also denies chest pain, palpitations, or leg swelling. He reports no frequent nausea, emesis, diarrhea, or heartburn, and has not noticed any blood in his urine, discomfort with urination, or a sudden increase in urinary frequency. He denies any unusual muscle or joint aches, skin lesions, rashes, or sores. In the past two weeks, he has not felt nervous or on edge, nor has he been worrying excessively. He denies any easy bruising or bleeding that is new or different from usual, and has not experienced any changes in his tolerance to heat or cold. He reports no recent increase in thirst, syncope, seizures, or tremors. He is a nonsmoker. His tetanus vaccination is up to date until next year. Past medical history, appointments, medications, allergies reviewed. Previous Medical History PAST MEDICAL HISTORY Diagnosis Date Ex-smoker 08/19/2021 Started age 21 about a pack a week quit age 25 Hyperlipidemia, mixed 10/28/2024 Obesity, Class I, BMI 30-34.9 08/20/2019 Seasonal allergic rhinitis due to pollen 08/20/2018 Previous Surgical History PAST SURGICAL HISTORY Procedure Laterality Date TONSILLECTOMY HX Family History FAMILY HISTORY Problem Relation Age of Onset None Mother Hypertension Father Hyperlipidemia Father None Brother None Brother Alzheimer's Disease Maternal Grandfather Coronary Artery Disease Paternal Grandfather 80's Stroke Paternal Grandfather Colon Cancer No Family History Prostate Cancer No Family History Breast Cancer No Family History Ovarian cancer No Family History Diabetes No Family History Kidney Disease No Family History Seizures No Family History Thyroid No Family History Patient Allergies ALLERGIES Allergen Reactions Seasonal Allergies Other: See Comments runny nose and sneezing Current Medications Current Outpatient Medications on File Prior to Visit Medication Sig sod ptavg-yzauag-forukl bottle (NEILMED SINUS RINSE COMPLETE) pkdv Dissolve one packet or sachet in 8 oz (240 mL) or lukewarm distilled, previously boiled or bottled water. Use as directed per package instructions fluticasone (FLONASE) 50 mcg/actuation nasal spray Use 2 Sprays in each nostril once daily. Rinse mouth after use. No current facility-administered medications on file prior to visit. Social History Social History Tobacco Use Smoking status: Former Current packs/day: 0.50 Average packs/day: 0.5 packs/day for 2.0 years (1.0 ttl pk-yrs) Types: Cigarettes Smokeless tobacco: Former Tobacco comments: quit 2005 Vaping Use Vaping status: Never Used Substance Use Topics Alcohol use: Yes Alcohol/week: 2.0 standard drinks of alcohol Types: 2 Glasses of Wine (5oz) per week Comment: very little Drug use: No Review of Symptoms REVIEW OF SYSTEMS GENERAL: No weight loss, malaise or fevers HEENT: Negative for frequent or significant headaches, No changes in hearing or vision, no nose bleeds or other nasal problems NECK: Negative for lumps, goiter, pain and significant neck swelling RESPIRATORY: Negative for cough, hemoptysis, wheezing, COPD, dyspnea or shortness of breath CARDIOVASCULAR: Negative for chest pain, leg swelling, hypertension, CHF or palpitations GI: No nausea, vomiting, or diarrhea and No heartburn or reflux symptoms : No history of dysuria, frequency or blood. MUSCULOSKELETAL: Negative for joint pain or swelling, back thom (more content not included)... [facility] 05-18-2025 Telephone encounter Note Pt at the office today wanting to complete his lab orders that are in for September. His Insurance covers a Physical once per calendar year. He changed his appt to this time from October and would like to complete his lab today prior to his appt. PSR unable to pull lab orders due to expected date being in September. Can we please put in new orders for completion today. Pt is scheduled for Physical today. Update Nurse once complete, to update front lobby staff. Ana Cristina Banks MA [facility] 05-18-2025 Miscellaneous Notes Pt at the office today wanting to complete his lab orders that are in for September. His Insurance covers a Physical once per calendar year. He changed his appt to this time from October and would like to complete his lab today prior to his appt. PSR unable to pull lab orders due to expected date being in September. Can we please put in new orders for completion today. Pt is scheduled for Physical today. Update Nurse once complete, to update front lobby staff. Ana Cristina Banks MA documented in this encounter [facility] 11-21-2024 Telephone encounter Note Patient calls to report that forms (FMLA and yearly check-up form) from appointment on 11/10/2024 with Karissa Sudhakar were not received by his employer. Re-faxed to [phone] with confirmation that forms were received. Notified patient. Gilma Gerber RN [facility] 11-21-2024 Miscellaneous Notes Patient calls to report that forms (FMLA and yearly check-up form) from appointment on 11/10/2024 with Karissa De La Fuente were not received by his employer. Re-faxed to [phone] with confirmation that forms were received. Notified patient. Gilma Gerber RN documented in this encounter [facility] 11-11-2024 Telephone encounter Note Pt called and is notified of providers results. Pt voices understanding. Payal Macias RN [facility] 11-11-2024 Miscellaneous Notes Pt called and is notified of providers results. Pt voices understanding. Payal Macias RN Please let patient know their labs are normal. documented in this encounter [facility] 11-11-2024 Telephone encounter Note Please let patient know their labs are normal. [facility] Work Phone: 11-10-2024 Note HNO ID: [id number] Author: KARISSA DE LA FUENTE APRN.KAYLA Service: ? Author Type: Nurse Practitioner Type: Progress Notes Filed: 11/10/2024 13:56 Note Text: Chief Complaint Patient presents with: Hospital F/U [facility] Mg Roach is a 44 year old male who presents here today for Above Complaints.. Patient presents for ER follow up for SBO. Patient was admitted to [facility] [place] from 11/01-11/04 during which he had an NG tube. Upon D/c patient was instructed to have labs rechecked due to elevated liver enzymes, hypokalemia and elevated TSH. Past medical history, appointments, medications, allergies reviewed. Previous Medical History PAST MEDICAL HISTORY Diagnosis Date Ex-smoker 08/19/2021 Started age 21 about a pack a week quit age 25 Hyperlipidemia, mixed 10/28/2024 Obesity, Class I, BMI 30-34.9 08/20/2019 Seasonal allergic rhinitis due to pollen 08/20/2018 Previous Surgical History PAST SURGICAL HISTORY Procedure Laterality Date TONSILLECTOMY HX Family History FAMILY HISTORY Problem Relation Age of Onset None Mother Hypertension Father Hyperlipidemia Father None Brother None Brother Alzheimer's Disease Maternal Grandfather Coronary Artery Disease Paternal Grandfather 80's Stroke Paternal Grandfather Colon Cancer No Family History Prostate Cancer No Family History Breast Cancer No Family History Ovarian cancer No Family History Diabetes No Family History Kidney Disease No Family History Seizures No Family History Thyroid No Family History Patient Allergies ALLERGIES Allergen Reactions Seasonal Allergies Other: See Comments runny nose and sneezing Current Medications Current Outpatient Medications on File Prior to Visit Medication Sig sod fkehm-qwlrrm-dmonxo bottle (NEILMED SINUS RINSE COMPLETE) pkdv Dissolve one packet or sachet in 8 oz (240 mL) or lukewarm distilled, previously boiled or bottled water. Use as directed per package instructions fluticasone (FLONASE) 50 mcg/actuation nasal spray Use 2 Sprays in each nostril once daily. Rinse mouth after use. No current facility-administered medications on file prior to visit. Social History Social History Tobacco Use Smoking status: Former Current packs/day: 0.50 Average packs/day: 0.5 packs/day for 2.0 years (1.0 ttl pk-yrs) Types: Cigarettes Smokeless tobacco: Former Tobacco comments: quit 2006 Vaping Use Vaping status: Never Used Substance Use Topics Alcohol use: Yes Alcohol/week: 2.0 standard drinks of alcohol Types: 2 Glasses of Wine (5oz) per week Drug use: No Review of Symptoms REVIEW OF SYSTEMS SEE HPI EXAM: BP 113/77 Pulse 89 Resp 14 Wt 103.9 kg (229 lb) BMI 32.39 kg/m? General Appearance: Well appearing, alert, in no acute distress, well-hydrated, well nourished. Lungs: Lungs clear to auscultation. No wheezing, rhonchi, rales.. Heart: RRR without murmur, gallop, or rubs. No ectopy. Abdomen: Normal abdominal exam, Abdomen soft, non-tender. Bowel sounds normal. No masses, organomegaly. Health Maintenance List Depression Screening Never done Anxiety Screening due on 10/28/2025 DTaP,Tdap,Td Vaccine(5 - Td or Tdap) due on 05/25/2026 Lipid Screening due on 10/28/2029 Hepatitis C Screening Completed HIV Screening Completed HPV Vaccine Aged Out Hepatitis B Vaccine Discontinued Influenza Vaccine Discontinued Covid-19 Vaccine Discontinued ASSESSMENT/PLAN: 1. SBO (small bowel obstruction) (HCC) - ICD9: 560.9, ICD10: K56.609 -Resolved. Patient has follow up with general surgery in 2-4 weeks. 2. Hypokalemia - ICD9: 276.8, ICD10: E87.6 - COMPREHENSIVE METABOLIC PANEL 3. Elevated liver function tests - ICD9: 790.6, ICD10: R79.89 - COMPREHENSIVE METABOLIC PANEL 4. 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 [place]. Patient to schedule follow up. Left message for patient that he is scheduled 11/10/2024 at 1:40 pm with Karissa De La Fuente. Paperwork given to there office. Vera Galindo MA [facility] 11-07-2024 Miscellaneous Notes Received D/C summary from [facility] [place]. Patient to schedule follow up. Left message for patient that he is scheduled 11/10/2024 at 1:40 pm with Karissa De La Fuente. Paperwork given to there office. Vera Galindo MA documented in this encounter [facility] 11-04-2024 Note [facility] Medical Records Department [address] [place] [address] Discharge Summary 11/04/24 1426 MR#: [id number] Acct: [id number] Name: MG ROACH Rep #: [id number] : 1980 44 From: Cheryl Mixon MD PCP: Dr. Mark Cantu MD Status:ADM IN [id number] Providers Date of Admission: 11/03/24 Date of Discharge: 11/04/24 Primary Care Physician: Dr. Mark Cantu MD Consultations 11/02/24 22:00 Consult: General Surgery Routine Consulting Provider: Walter Mckeon Reason for Consult: Mesenteric adenitis with florencia-splenic mass and SBO EMERGENT Consult: No MD Notified: Yes Date Notified: 11/02/24 Time Notified: 22:00 Method of Notification: Verbal Reason For Visit: GASTROENTERITIS Diagnosis Discharge Diagnosis (1) Enteritis: Status: Acute Code(s): K52.9 - Noninfective gastroenteritis and colitis, unspecified (2) Viral gastroenteritis: Status: Acute Code(s): A08.4 - Viral intestinal infection, unspecified (3) Infection due to Norovirus species: Status: Acute Code(s): A08.11 - Acute gastroenteropathy due to Nahma agent Plan: DISCHARGE DIAGNOSES: #1. Acute terminal ileitis secondary to norovirus/ciguatoxin with complicating small bowel obstruction #2. Hypokalemia, secondary to GI losses, resolved #3. Mild transaminitis, unclear etiology, Suspect likely underlying fatty liver disease #4. Obesity #5. Former tobacco use Medications at Discharge Home Medications acetaminophen 325 mg tablet 650 mg (2 x 325 mg) PO Q6H PRN PRN Pain 1-10 Or Fever #0 tabs 11/04/24 Hospital Course Operations None Procedures EKG Summary of Care Provided Minutes Spent on Discharge: 35 Hospital Course: The patient is a 44 y/o M w/ PMHx: Obesity, Former tobacco use with otherwise no marked medical history who presented to the [facility] [place] ED on 11/01/2024 with history of intractable nausea, emesis, abdominal pain and cramping not improving prompting eventual ED evaluation. ED evaluation with noted CT concerning for possible developing small bowel obstruction, admitted to medical surgical floor stool study and viral evaluation with evidence of acute norovirus illness, initially NG tube placed, surgery consulted, began to have flatus onset 11/03/2024, NG tube removed, started on a clear liquid diet, 11/03/2024 small bowel follow-through noted to be negative. 11/04/2024 patient maintained on full liquid diet with re-evaluation by general surgery and given patient clinically improved and stable amenable to discharge to home on continue full liquids for at least the next 2 to 3 days with diet transition following with limitation to at least soft foods until completely resolved. During the admission patient with hypokalemia with supplementation with eventual normalization. Patient also with mild transaminitis of unclear etiology although suspected secondary to fatty liver disease. Recommend follow-up with primary care physician within 3 to 5 days for repeat CMP to assess potassium and liver function studies. Given also history of at least hyperlipidemia noted back as far as 2013 recommended follow-up lipid panel as well once patient completely clinically improved potentially at follow-up annual visit. Given patient improvement plan discharge to home with follow-up with primary care physician and also follow-up with general surgery with earlier evaluation if concerns arise. Weight / BMI Weight Weight: 233 lb 14.4 oz Body Mass Index (BMI) 32.5 ABG / Lab / Microbiology Data 11/03/24 07:00 11/04/24 05:23 Laboratory: Laboratory Results - last 24 hr 11/04/24 05:23: Sodium 138, Potassium 3.3 L, Chloride 107, Carbon Dioxide 28.0, Anion Gap 3 L, BUN 9, Creatinine 0.76, Estim Creat Clear Calc 155.32, Est GFR (MDRD) Af Amer 143, Est GFR (MDRD) Non-Af 118, BUN/Creatinine Ratio 11.8, Glucose 96, Calcium 8.8, Total Bilirubin 0.50, AST 29, ALT 86 H, Alkaline Phosphatase 54, Total Protein 6.5, Albumin 3.1 L, Globulin 3.4, Albumin/Globulin Ratio 0.9 Microbiology: Microbiology 11/01/24 14:54 Urine, Clean Catch Urine Culture - Final Culture exhibits no growth. 11/03/24 10:35 Stool Enteric Bacteriology - Final Shiga Toxin 1 Norovirus D/C Instructions Discharge Diet: - (Continue full liquid diet x 2-3 additional days then may transition but maintain soft foods until completely resolved per Surgery request.) May resume sexual activity in: 10-14 days Weight Bearing Status: Weight bearing as tolerated Call your doctor if you observe: Fever of 101 or Higher, Inability to have a bowel movement, Shortness of breath, Dizziness, Swelling in the ankles, Chest pain, Increased palpitations (irregular heartbeat), Calf discomfort and Uncontrolled pain DC O2, CPAP, BIPAP Needs Home O2 Discharge instructions: No Meaningful Use Info Rizwana (more content not included)... [facility] 11-03-2024 Note HNO ID: [id number] Author: FUAD BARCENAS LPN Service: ? Author Type: LICENSED NURSE Type: Progress Notes Filed: 11/03/2024 12:44 Note Text: Scan on 11/03/2024 12:21 PM by ProviderMadie PA-C: Consultation - General Surgery [facility] 11-03-2024 History of Presen t illness Narrative Scan on 11/03/2024 12:21 PM by ProviderMadie PA-C: Consultation - General Surgery documented in this encounter [facility] 11-01-2024 Note HNO ID: [id number] Author: DONTE BECKHAM MD Service: ? Author Type: Physician Type: Progress Notes Filed: 11/01/2024 15:19 Note Text: Express Care Triage Note: Patient presents to the [facility] with complaint of abdominal pain. He had nausea with vomiting and diarrhea starting 2 days ago. He is here because he has been having abdominal pain that is severe at times. He would like to have a serious cause for the pain ruled out. His will take him to the [facility] [place] ED for further evaluation. [facility] 11-01-2024 History of Presen t illness Narrative Express Care Triage Note: Patient presents to the [facility] with complaint of abdominal pain. He had nausea with vomiting and diarrhea starting 2 days ago. He is here because he has been having abdominal pain that is severe at times. He would like to have a serious cause for the pain ruled out. His will take him to the [facility] ED for further evaluation. documented in this encounter [facility] 10-29-2024 Telephone encounter Note Patient notified and voiced understanding. Vera Galindo MA [facility] 10-29-2024 Miscellaneous Notes Patient notified and voiced understanding. Vera Galindo MA Let patient know his lipid panel showed Trigs slightly elevated at 168 (goal<150), HDL good at 42 and LDL elevated at 165 (goal<130). Advise patient to work on reduced fat/chol in diet and increased exercise for weight loss. His blood sugar lab and prostate lab were good. documented in this encounter [facility] 10-28-2024 Telephone encounter Note Let patient know his lipid panel showed Trigs slightly elevated at 168 (goal<150), HDL good at 42 and LDL elevated at 165 (goal<130). Advise patient to work on reduced fat/chol in diet and increased exercise for weight loss. His blood sugar lab and prostate lab were good. [facility] 10-28-2024 Instructions Mark Cantu MD - 10/28/2024 9:46 AM EST Please get labs done on or after 10/09/2025 prior to your next visit. documented in this encounter [facility] 10-28-2024 History of Presen t illness Narrative Chief Complaint Patient presents with: Physical HPI Mg Doc is a 44 year old male who presents here today for Physical. Patient with Hx of seasonal allergies, obesity, ex-smoker as well as those reviewed and addressed below and in ROS. Patient zackery cordero doing well. Flonase controls his allergies when needed. Past medical history, appointments, medications, allergies reviewed. Previous Medical History PAST MEDICAL HISTORY Diagnosis Date Ex-smoker 08/19/2021 Started age 21 about a pack a week quit age 25 Obesity, Class I, BMI 30-34.9 08/20/2019 Seasonal allergic rhinitis due to pollen 08/20/2018 Previous Surgical History PAST SURGICAL HISTORY Procedure Laterality Date TONSILLECTOMY HX Family History FAMILY HISTORY Problem Relation Age of Onset None Mother Hypertension Father Hyperlipidemia Father None Brother None Brother Alzheimer's Disease Maternal Grandfather Coronary Artery Disease Paternal Grandfather 80's Stroke Paternal Grandfather Colon Cancer No Family History Prostate Cancer No Family History Breast Cancer No Family History Ovarian cancer No Family History Diabetes No Family History Kidney Disease No Family History Seizures No Family History Thyroid No Family History Patient Allergies ALLERGIES Allergen Reactions Seasonal Allergies Other: See Comments runny nose and sneezing Current Medications Current Outpatient Medications on File Prior to Visit Medication Sig sod eccua-gpsbxw-oqhrtp bottle (NEILMED SINUS RINSE COMPLETE) pkdv Dissolve one packet or sachet in 8 oz (240 mL) or lukewarm distilled, previously boiled or bottled water. Use as directed per package instructions fluticasone (FLONASE) 50 mcg/actuation nasal spray Use 2 Sprays in each nostril once daily. Rinse mouth after use. No current facility-administered medications on file prior to visit. Social History Social History Tobacco Use Smoking status: Former Current packs/day: 0.50 Average packs/day: 0.5 packs/day for 2.0 years (1.0 ttl pk-yrs) Types: Cigarettes Smokeless tobacco: Former Tobacco comments: quit 2006 Vaping Use Vaping status: Never Used Substance Use Topics Alcohol use: Yes Alcohol/week: 2.0 standard drinks of alcohol Types: 2 Glasses of Wine (5oz) per week Drug use: No Review of Symptoms REVIEW OF SYSTEMS GENERAL: No weight loss, malaise or fevers HEENT: Negative for frequent or significant headaches, No changes in hearing or vision, no nose bleeds or other nasal problems NECK: Negative for lumps, goiter, pain and significant neck swelling RESPIRATORY: Negative for cough, hemoptysis, wheezing, COPD, dyspnea or shortness of breath CARDIOVASCULAR: Negative for chest pain, leg swelling, hypertension, CHF or palpitations GI: No nausea, vomiting, or diarrhea and No heartburn or reflux symptoms : No history of dysuria, blood MUSCULOSKELETAL: Negative for joint pain or swelling, back pain or muscle pain SKIN: Negative for lesions, rash, and itching PSYCH: Negative for sleep disturbance, mood disorder and recent psychosocial stressors HEMATOLOGY/LYMPHOLOGY: Negative for prolonged bleeding, bruising easily or swollen nodes ENDOCRINE: Negative for cold or heat intolerance, polyuria, polydipsia and goiter NEURO: No history of headaches, syncope, paralysis, seizures or tremors EXAM: BP 118/86 Pulse 72 Resp 16 Ht 179.1 cm (5' 10.5) Wt 108.4 kg (239 lb) BMI 33.81 kg/m BP 108/72 Pulse 72 Resp 16 Ht 179.1 cm (5' 10.5) Wt 108.4 kg (239 lb) BMI 33.81 kg/m Last 5 Encounter Wt Readings: Date: Wt: 10/28/2024 108.4 kg (239 lb) 11/15/2023 109.8 kg (242 lb) 11/11/2023 108.4 kg (239 lb) 11/09/2023 108.2 kg (238 lb 9.6 oz) 08/28/2023 104.8 kg (231 lb) General Appearance: Well appearing, alert, in no acute distress, well-hydrated, well nourished. and Obese. Skin: Skin color, texture, turgor normal, no suspicious rashes or lesions. Head: Normocephalic, no masses, lesions, tenderness or abnormalities. Eyes: Anicteric sclera. Pupils are equally round and reactive to light. Extraocular movements are intact. . Ears: External ears, TM's normal, canals clear. Nose/Sinuses: Nares normal, septum midline, mucosa normal, no drainage or sinus tenderness. Oropharynx: Lips, mucosa, and tongue normal, teeth and gums normal, oropharynx normal. Neck: Supple, no adenopathy; thyroid symmetric, normal size, no bruits. Lungs: Lungs clear to auscultation. No wheezing, rhonchi, rales.. Heart: RRR without murmur, gallop, or rubs. No ectopy. Abdomen: Normal abdominal exam, Abdomen soft, non-tender. Bowel sounds normal. No masses, organomegaly. Extremities: No deformities, edema, skin discoloration, Good capillary refill. . Musculoskeletal: Spine range of motion normal. Muscular strength intact, No joint swelling, deformity, or tenderness. Peripheral Pulses: Normal. Neurologic: Gait normal. Reflexes normal and symmetric. Sensation to light touch and crainal nerves 2-12 intact.. Genitalia: Normal, Penis normal. No urethral discharge. Scrotum normal to palpation. No hernia.. Health Maintenance List Depression Screening Never done Anxiety Screening Never done Covid-19 Vaccine(2023- season) Never done DTaP,Tdap,Td Vaccine(5 - Td or Tdap) due on 05/25/2026 Lipid Screening due on 10/12/2028 Hepatitis C Screening Completed HIV Screening Completed HPV Vaccine Aged Out Hepatitis B Vaccine Discontinued Influenza Vaccine Discontinued Data reviewed A/P ASSESSMENT/PLAN: 1. Well adult exam - ICD9: V70.0, ICD10: Z00.00 (primary diagnosis) - Counseled on healthy diet and regular exercise - Discussed need for and benefit of weight loss. BMI 33.81 kg/(m^2) - Follow up for annual exam in one year 2. Seasonal allergic rhinitis due to pollen - ICD9: 477.0, ICD10: J30.1 - cont Flonase as needed. 3. Obesity, Class I, BMI 30-34.9 - ICD9: 278.00, ICD10: E66.811 - patient to work on diet. 4. Screening for prostate cancer - ICD9: V76.44, ICD10: Z12.5 - check PSA 5. Encounter for screening for diabetes mellitus - ICD9: V77.1, ICD10: Z13.1 - check A1c 6. Encounter for lipid screening for cardiovascular disease - ICD9: V77.91, V81.2, ICD10: Z13.220, Z13.6 - check Lipid F/u in year or sooner if needed. Mark Cantu MD The sensitive examination was discussed with the Patient or Patient's Authorized Supervisor [employer]. As applicable, any other physician, advance practice provider, medical student, or other health professional student that will be observing or involved in the sensitive examination for educational or training purposes was discussed with the Patient or Authorized Supervisor [employer]. The Patient or Authorized Supervisor [employer] has agreed to proceed with the sensitive examination. (Sensitive examination includes inspection and/or palpation of the breasts, pelvis, prostate and anorectal regions) documented in this encounter [facility] 10-28-2024 Note HNO ID: [id number] Author: MARK CANTU MD Service: ? Author Type: Physician Type: Progress Notes Filed: 10/28/2024 09:51 Note Text: Chief Complaint Patient presents with: Physical HPI Mg Roach is a 44 year old male who presents here today for Physical. Patient with Hx of seasonal allergies, obesity, ex-smoker as well as those reviewed and addressed below and in ROS. Patient zackery cordero doing well. Flonase controls his allergies when needed. Past medical history, appointments, medications, allergies reviewed. Previous Medical History PAST MEDICAL HISTORY Diagnosis Date Ex-smoker 08/19/2021 Started age 21 about a pack a week quit age 25 Obesity, Class I, BMI 30-34.9 08/20/2019 Seasonal allergic rhinitis due to pollen 08/20/2018 Previous Surgical History PAST SURGICAL HISTORY Procedure Laterality Date TONSILLECTOMY HX Family History FAMILY HISTORY Problem Relation Age of Onset None Mother Hypertension Father Hyperlipidemia Father None Brother None Brother Alzheimer's Disease Maternal Grandfather Coronary Artery Disease Paternal Grandfather 80's Stroke Paternal Grandfather Colon Cancer No Family History Prostate Cancer No Family History Breast Cancer No Family History Ovarian cancer No Family History Diabetes No Family History Kidney Disease No Family History Seizures No Family History Thyroid No Family History Patient Allergies ALLERGIES Allergen Reactions Seasonal Allergies Other: See Comments runny nose and sneezing Current Medications Current Outpatient Medications on File Prior to Visit Medication Sig sod ejzqd-qvfbux-lmlfet bottle (NEILMED SINUS RINSE COMPLETE) pkdv Dissolve one packet or sachet in 8 oz (240 mL) or lukewarm distilled, previously boiled or bottled water. Use as directed per package instructions fluticasone (FLONASE) 50 mcg/actuation nasal spray Use 2 Sprays in each nostril once daily. Rinse mouth after use. No current facility-administered medications on file prior to visit. Social History Social History Tobacco Use Smoking status: Former Current packs/day: 0.50 Average packs/day: 0.5 packs/day for 2.0 years (1.0 ttl pk-yrs) Types: Cigarettes Smokeless tobacco: Former Tobacco comments: quit 2006 Vaping Use Vaping status: Never Used Substance Use Topics Alcohol use: Yes Alcohol/week: 2.0 standard drinks of alcohol Types: 2 Glasses of Wine (5oz) per week Drug use: No Review of Symptoms REVIEW OF SYSTEMS GENERAL: No weight loss, malaise or fevers HEENT: Negative for frequent or significant headaches, No changes in hearing or vision, no nose bleeds or other nasal problems NECK: Negative for lumps, goiter, pain and significant neck swelling RESPIRATORY: Negative for cough, hemoptysis, wheezing, COPD, dyspnea or shortness of breath CARDIOVASCULAR: Negative for chest pain, leg swelling, hypertension, CHF or palpitations GI: No nausea, vomiting, or diarrhea and No heartburn or reflux symptoms : No history of dysuria, blood MUSCULOSKELETAL: Negative for joint pain or swelling, back pain or muscle pain SKIN: Negative for lesions, rash, and itching PSYCH: Negative for sleep disturbance, mood disorder and recent psychosocial stressors HEMATOLOGY/LYMPHOLOGY: Negative for prolonged bleeding, bruising easily or swollen nodes ENDOCRINE: Negative for cold or heat intolerance, polyuria, polydipsia and goiter NEURO: No history of headaches, syncope, paralysis, seizures or tremors EXAM: BP 118/86 Pulse 72 Resp 16 Ht 179.1 cm (5' 10.5) Wt 108.4 kg (239 lb) BMI 33.81 kg/m? BP 108/72 Pulse 72 Resp 16 Ht 179.1 cm (5' 10.5) Wt 108.4 kg (239 lb) BMI 33.81 kg/m? Last 5 Encounter Wt Readings: Date: Wt: 10/28/2024 108.4 kg (239 lb) 11/15/2023 109.8 kg (242 lb) 11/11/2023 108.4 kg (239 lb) 11/09/2023 108.2 kg (238 lb 9.6 oz) 08/28/2023 104.8 kg (231 lb) General Appearance: Well appearing, alert, in no acute distress, well-hydrated, well nourished. and Obese. Skin: Skin color, texture, turgor normal, no suspicious rashes or lesions. Head: Normocephalic, no masses, lesions, tenderness or abnormalities. Eyes: Anicteric sclera. Pupils are equally round and reactive to light. Extraocular movements are intact. . Ears: External ears, TM's normal, canals clear. Nose/Sinuses: Nares normal, septum midline, mucosa normal, no drainage or sinus tenderness. Oropharynx: Lips, mucosa, and tongue normal, teeth and gums normal, oropharynx normal. Neck: Supple, no adenopathy; thyroid symmetric, normal size, no bruits. Lungs: Lungs clear to auscultation. No wheezing, rhonchi, rales.. Heart: RRR without murmur, gallop, or rubs. No ectopy. Abdomen: Normal abdominal exam, Abdomen soft, non-tender. Bowel sounds normal. No masses, organomegaly. Extremities: No deformities, edema, skin discoloration, Good capillary refill. . Musculoskeletal: Spine range of motion no (more content not included)... [facility] 11-11-2023 History of Presen t illness Narrative CC: Patient presents with: Sinus Problem: Returns from Sunday, symptoms worsen HPI: Mg Roach is a 43 year old male who presents to the office with complaint of head congestion, cough, nonproductive, and sinus symptoms for 2 weeks. Symptoms are worsening Associated symptoms includes nasal congestion and facial pain/pressure. Denies fever, nausea, vomiting , and diarrhea. Treatments tried include nothing so far. with no relief of symptoms. Sick contacts: unknown. History of asthma, frequent episodes of bronchitis, chronic bronchitis, bronchiectasis or COPD: No Smoker: No Seasonal/environmental allergies: No The ROS is otherwise negative. The patient's pmh, medications, allergies, and past visits are reviewed. PHYSICAL EXAM: BP 132/80 Pulse (!) 128 Temp (!) 38.1 C (100.6 F) Resp 18 Wt 108.4 kg (239 lb) SpO2 97% BMI 33.81 kg/m General appearance: alert, cooperative, pleasant, in no acute distress Head: Normocephalic Eyes: EOM's intact, conjunctiva pink and moist, no icterus, sclera white, non-injected Ears: Right ear: External ear/canal- Normal, TM - clear with good landmarks. Left ear: External ear/canal- Normal, TM - clear with good landmarks Oropharynx:moist without lesions, No erythema, exudates or tonsillar hypertrophy. Heart: Negative. RRR without obvious murmur, gallop, or rubs. No ectopy. Lungs: clear to auscultation, without rales or wheeze, good air exchange PAST MEDICAL HISTORY Diagnosis Date Ex-smoker 08/19/2021 Started age 21 about a pack a week quit age 25 Obesity, Class I, BMI 30-34.9 08/20/2019 Seasonal allergic rhinitis due to pollen 08/20/2018 PAST SURGICAL HISTORY Procedure Laterality Date TONSILLECTOMY HX ALLERGIES Seasonal Allergies MEDICATIONS loratadine (CLARITIN) 10 mg tablet Take 1 tablet by mouth once daily. sod srddt-ecvpqg-bbpiqv bottle (NEMicrosaicMED SINUS RINSE COMPLETE) pkdv Dissolve one packet or sachet in 8 oz (240 mL) or lukewarm distilled, previously boiled or bottled water. Use as directed per package instructions oxymetazoline (AFRIN, OXYMETAZOLINE,) 0.05 % nasal spray Use 2 Sprays in each nostril two times a day for 5 days. fluticasone (FLONASE) 50 mcg/actuation nasal spray Use 2 Sprays in each nostril once daily. Rinse mouth after use. doxycycline (VIBRA-TABS) 100 mg tablet Take 1 tablet by mouth two times a day for 7 days. FAMILY HISTORY Problem Relation Age of Onset None Mother Hypertension Father Hyperlipidemia Father None Brother None Brother Alzheimer's Disease Maternal Grandfather Coronary Artery Disease Paternal Grandfather 80's Stroke Paternal Grandfather Colon Cancer No Family History Prostate Cancer No Family History Breast Cancer No Family History Ovarian cancer No Family History Diabetes No Family History Kidney Disease No Family History Seizures No Family History Thyroid No Family History Social History Tobacco Use Smoking status: Former Packs/day: 0.50 Years: 2.00 Additional pack years: 0.00 Total pack years: 1.00 Types: Cigarettes Smokeless tobacco: Former Tobacco comments: quit 2006 Vaping Use Vaping Use: Never used Substance Use Topics Alcohol use: Yes Alcohol/week: 2.0 standard drinks of alcohol Types: 2 Glasses of Wine (5oz) per week Drug use: No ASSESSMENT/PLAN: 1. Rhinosinusitis - ICD9: 473.9, ICD10: J32.9 - DOXYCYCLINE HYCLATE 100 MG TABLET Prescription instructions reviewed with patient as applicable. Potential red flag symptoms discussed with the patient. Reviewed appropriate action plan to take if red flag symptoms occur. Patient agreeable to treatment plan. Jessica Galindo APRN.KAYLA documented in this encounter [facility] 10-13-2023 Miscellaneous Notes Left detailed vm on identified vm with provider's message. Let patient know his prostate lab and blood sugar screen were ok. His lipid panel showed Trigs were good at 113, HDL good at 48 and LDL elevated at 179 (goal<130 and was 208). Continue working on diet and exercise for weight loss to help. documented in this encounter [facility] 08-28-2023 History of Presen t illness Narrative Chief Complaint Patient presents with: Physical HPI Mg Roach is a 43 year old male who presents here today for Physical. Patient with Hx of seasonal allergies, obesity, ex-smoker as well as those reviewed and addressed below and in ROS. Any concerns today? Patient was seen back in 07/06 and had xray. Right ankle was getting better but last Sunday he step off of mat and not sure if he twisted it again. Patient is wearing his air cast again. Did ice the area and never saw any swelling or bruising. Past medical history, appointments, medications, allergies reviewed. Previous Medical History PAST MEDICAL HISTORY Diagnosis Date Ex-smoker 08/19/2021 Started age 21 about a pack a week quit age 25 Obesity, Class I, BMI 30-34.9 08/20/2019 Seasonal allergic rhinitis due to pollen 08/20/2018 Previous Surgical History PAST SURGICAL HISTORY Procedure Laterality Date TONSILLECTOMY HX Family History FAMILY HISTORY Problem Relation Age of Onset None Mother Hypertension Father Hyperlipidemia Father None Brother None Brother Alzheimer's Disease Maternal Grandfather Coronary Artery Disease Paternal Grandfather 80's Stroke Paternal Grandfather Colon Cancer No Family History Prostate Cancer No Family History Breast Cancer No Family History Ovarian cancer No Family History Diabetes No Family History Kidney Disease No Family History Seizures No Family History Thyroid No Family History Patient Allergies ALLERGIES Allergen Reactions Seasonal Allergies Other: See Comments runny nose and sneezing Current Medications Current Outpatient Medications on File Prior to Visit Medication Sig mupirocin (BACTROBAN) 2 % ointment Apply to affected area three times daily. fluticasone (FLONASE) 50 mcg/actuation nasal spray Use 2 Sprays in each nostril once daily. Rinse mouth after use. No current facility-administered medications on file prior to visit. Social History Social History Tobacco Use Smoking status: Former Packs/day: 0.50 Years: 2.00 Additional pack years: 0.00 Total pack years: 1.00 Types: Cigarettes Smokeless tobacco: Former Tobacco comments: quit 2006 Vaping Use Vaping Use: Never used Substance Use Topics Alcohol use: Yes Alcohol/week: 5.0 standard drinks of alcohol Types: 2 Glasses of Wine (5oz) per week Drug use: No Review of Symptoms REVIEW OF SYSTEMS GENERAL: No weight loss, malaise or fevers HEENT: Negative for frequent or significant headaches, No changes in hearing or vision, no nose bleeds or other nasal problems NECK: Negative for lumps, goiter, pain and significant neck swelling RESPIRATORY: Negative for cough, hemoptysis, wheezing, COPD, dyspnea or shortness of breath CARDIOVASCULAR: Negative for chest pain, leg swelling, hypertension, CHF or palpitations GI: No nausea, vomiting, or diarrhea, No heartburn or reflux symptoms, and no blood : No history of dysuria, frequency or blood MUSCULOSKELETAL: see HPI SKIN: Negative for lesions, rash, and itching PSYCH: Negative for sleep disturbance, mood disorder and recent psychosocial stressors HEMATOLOGY/LYMPHOLOGY: Negative for prolonged bleeding, bruising easily or swollen nodes ENDOCRINE: Negative for cold or heat intolerance, polyuria, polydipsia and goiter NEURO: No history of headaches, syncope, paralysis, seizures or tremors EXAM: BP 132/90 (BP Site: Left Arm, BP Position: Sitting, BP Cuff Size: Regular Adult) Pulse 64 Resp 16 Ht 179.1 cm (5' 10.5) Wt 104.8 kg (231 lb) BMI 32.68 kg/m BP 132/88 Pulse 64 Resp 16 Ht 179.1 cm (5' 10.5) Wt 104.8 kg (231 lb) BMI 32.68 kg/m Last 4 Encounter Wt Readings: Date: Wt: 08/28/2023 104.8 kg (231 lb) 07/06/2023 101.6 kg (224 lb) 02/01/2023 96.6 kg (213 lb) 08/28/2022 106.1 kg (234 lb) General Appearance: Well appearing, alert, in no acute distress, well-hydrated, well nourished. and Obese. Skin: Skin color, texture, turgor normal, no suspicious rashes or lesions. Head: Normocephalic, no masses, lesions, tenderness or abnormalities. Eyes: Anicteric sclera. Pupils are equally round and reactive to light. Extraocular movements are intact. . Ears: External ears normal, Rt canal clear and TM normal. Lf canal blocked with wax.. Nose/Sinuses: Nares normal, septum midline, mucosa normal, no drainage or sinus tenderness. Oropharynx: Lips, mucosa, and tongue normal, teeth and gums normal, oropharynx normal. Neck: Supple, no adenopathy; thyroid symmetric, normal size, no bruits. Lungs: Lungs clear to auscultation. No wheezing, rhonchi, rales.. Heart: RRR without murmur, gallop, or rubs. No ectopy. Abdomen: Normal abdominal exam, Abdomen soft, non-tender. Bowel sounds normal. No masses, organomegaly. Extremities: No deformities, edema, skin discoloration, Good capillary refill. . Musculoskeletal: No joint swelling, deformity. Right ankle no tenderness on the supporting ligaments for the lateral right ankle. Anterior drawer was normal. There is mild tenderness over the fibular head. There is mild discomfort on forced inversion. Peripheral Pulses: Normal. Neurologic: Gait normal. Reflexes normal and symmetric. Sensation to light touch and crainal nerves 2-12 intact.. Genitalia: Normal, Penis normal. No urethral discharge. Scrotum normal to palpation. No hernia.. Rectal: Normal exam. Health Maintenance List Covid-19 Vaccine(1) due on 08/28/2023 DTaP,Tdap,Td Vaccine(3 - Td or Tdap) due on 11/03/2023 Lipid Screening due on 08/28/2027 Depression Assessment Completed Hepatitis C Screening Completed HIV Screening Completed HPV Vaccine Aged Out Hepatitis B Vaccine Discontinued Influenza Vaccine Discontinued Data reviewed A/P ASSESSMENT/PLAN: 1. Well adult exam - ICD9: V70.0, ICD10: Z00.00 (primary diagnosis) - Counseled on healthy diet and regular exercise - Discussed need for and benefit of weight loss. BMI 32.68 kg/(m^2) - Follow up for annual exam in one year - HGB A1C - PSA/PROSTSPECAG DIAG - LIPID PANEL, NONFASTING 2. Obesity, Class I, BMI 30-34.9 - ICD9: 278.00, ICD10: E66.9 - as above 3. Seasonal allergic rhinitis due to pollen - ICD9: 477.0, ICD10: J30.1 - stable uses Flonase as needed. 4. Encounter for screening for diabetes mellitus - ICD9: V77.1, ICD10: Z13.1 Check - HGB A1C 5. Screening for prostate cancer - ICD9: V76.44, ICD10: Z12.5 Check - PSA/PROSTSPECAG DIAG 6. Encounter for lipid screening for cardiovascular disease - ICD9: V77.91, V81.2, ICD10: Z13.220, Z13.6 Check - LIPID PANEL, NONFASTING 7. Acute right ankle pain - ICD9: 719.47, 338.19, ICD10: M25.571 - discussed repeat x-ray and patient decided to hold off for now. - discussed PHYSICAL THERAPY and patient will let me know if he wants to proceed. 8. Excessive ear wax, left - ICD9: 380.4, ICD10: H61.22 - AMBULATORY EAR LAVAGE/IRRIGATION - discussed removal of wax with use of ear pick and verbal consent given. Provider was able to remove about 1/2 of the large ear wax plug. The remaining wax plug was too far in to continue use of ear pick and therefore nursing used warm water irrigation to get the remaining wax out. Patient tolerated well. F/u in a year WAE sooner if issues. Ambulatory Ear Lavage Pre-treatment: Warm water Treatment: Left ear Equipment and Irrigation solution and Volume used: Single use syringe with single use irrigation tip Return flow appearance: Yellow Debris Patient tolerated procedure: yes Tympanic membrane assessment: Tympanic membrane assessed by LIP pre-procedure ODALIS Collado MD documented in this encounter [facility] 07-06-2023 Miscellaneous Notes Patient notified of results and provider's instructions. Patient verbalizes understanding. Fuad Barcenas LPN Xray looks okay. Cont as discussed with Dr. Cantu. documented in this encounter [facility] 07-06-2023 History of Presen t illness Narrative Chief Complaint Patient presents with: Acute Visit: R ankle pain x1 month; heard a pop about 1 month ago CHILANGO Roach is a 43 year old male who presents here today for Above Complaints.. Patient was camping about a month ago and stepped on a water shut off that was above ground. Not sure if he inverted or everted but he heard and felt a pop on the lateral side of the right ankle. He did having swelling but no bruising. It was slowly improving and then a few weeks ago and was walking on an uneven surface and felt it pop again. It swelled again but no bruising. Still painful at times with certain movements. Past medical history, appointments, medications, allergies reviewed. Previous Medical History PAST MEDICAL HISTORY Diagnosis Date Ex-smoker 08/19/2021 Started age 21 about a pack a week quit age 25 Obesity, Class I, BMI 30-34.9 08/20/2019 Seasonal allergic rhinitis due to pollen 08/20/2018 Previous Surgical History PAST SURGICAL HISTORY Procedure Laterality Date TONSILLECTOMY HX Family History FAMILY HISTORY Problem Relation Age of Onset None Mother Hypertension Father Hyperlipidemia Father None Brother None Brother Alzheimer's Disease Maternal Grandfather Coronary Artery Disease Paternal Grandfather 80's Stroke Paternal Grandfather Colon Cancer No Family History Prostate Cancer No Family History Breast Cancer No Family History Ovarian cancer No Family History Diabetes No Family History Kidney Disease No Family History Seizures No Family History Thyroid No Family History Patient Allergies ALLERGIES Allergen Reactions Seasonal Allergies Other: See Comments runny nose and sneezing Current Medications Current Outpatient Medications on File Prior to Visit Medication Sig mupirocin (BACTROBAN) 2 % ointment Apply to affected area three times daily. fluticasone (FLONASE) 50 mcg/actuation nasal spray Use 2 Sprays in each nostril once daily. Rinse mouth after use. No current facility-administered medications on file prior to visit. Social History Social History Tobacco Use Smoking status: Former Packs/day: 0.50 Years: 2.00 Additional pack years: 0.00 Total pack years: 1.00 Types: Cigarettes Smokeless tobacco: Former Tobacco comments: quit 2005 Vaping Use Vaping Use: Never used Substance Use Topics Alcohol use: Yes Alcohol/week: 5.0 standard drinks of alcohol Types: 2 Glasses of Wine (5oz) per week Drug use: No Review of Symptoms REVIEW OF SYSTEMS See HPI EXAM: BP 128/90 Pulse 60 Resp 16 Wt 101.6 kg (224 lb) SpO2 97% BMI 31.91 kg/m General Appearance: Well appearing, alert, in no acute distress, well-hydrated, well nourished.. Musculoskeletal: Left ankle exam was within normal limits' and neurovascularly intact. Right ankle: neurovascularly intact. No tenderness over the ligaments on either the medical or lateral side. There is tenderness to palpation of the lateral malleoli. Some soft tissue swelling over the lateral malleoli. Inversion, eversion, plantar and dorsi flexion strength were all ok with no pain produced. Health Maintenance List COVID-19 VACCINE(1) due on 08/28/2023 DTAP,TDAP,TD(3 - Td or Tdap) due on 11/03/2023 LIPID SCREEN due on 08/28/2027 DEPRESSION ASSESSMENT Completed HEPATITIS C SCREENING Completed HIV SCREENING Completed HPV VACCINE Aged Out HEPATITIS B Discontinued INFLUENZA Discontinued Data reviewed A/P ASSESSMENT/PLAN: 1. Acute right ankle pain - ICD9: 719.47, 338.19, ICD10: M25.571 - XR ANKLE GENERAL 3V AP/LAT/OBL RIGHT: was neg for fracture. - patient placed in an air cast to wear daily for the next 7-10 days. And then while out of the house for the next 10-14 days. Advised on icing. If not improving will need PHYSICAL THERAPY. Mark Cantu MD documented in this encounter [facility] 02-01-2023 History of Presen t illness Narrative Chief Complaint Patient presents with: Derm Problem: Patient states bump on left side nose HPI Mg Roach is a 42 year old male who presents here today for Above Complaints.. Patient has noted a sore on inside of left nostril for about 2 weeks. In the past couple days he has had some pain on R nostril. Some bleeding if he messes with it. Past medical history, appointments, medications, allergies reviewed. Previous Medical History PAST MEDICAL HISTORY Diagnosis Date Ex-smoker 08/19/2021 Started age 21 about a pack a week quit age 25 Obesity, Class I, BMI 30-34.9 08/20/2019 Seasonal allergic rhinitis due to pollen 08/20/2018 Previous Surgical History PAST SURGICAL HISTORY Procedure Laterality Date TONSILLECTOMY HX Family History FAMILY HISTORY Problem Relation Age of Onset None Mother Hypertension Father Hyperlipidemia Father None Brother None Brother Alzheimer's Disease Maternal Grandfather Coronary Artery Disease Paternal Grandfather 80's Stroke Paternal Grandfather Colon Cancer No Family History Prostate Cancer No Family History Breast Cancer No Family History Ovarian cancer No Family History Diabetes No Family History Kidney Disease No Family History Seizures No Family History Thyroid No Family History Patient Allergies ALLERGIES Allergen Reactions Seasonal Allergies Other: See Comments runny nose and sneezing Current Medications Current Outpatient Medications on File Prior to Visit Medication Sig fluticasone (FLONASE) 50 mcg/actuation nasal spray Use 2 Sprays in each nostril once daily. Rinse mouth after use. No current facility-administered medications on file prior to visit. Social History Social History Tobacco Use Smoking status: Former Packs/day: 0.50 Years: 2.00 Pack years: 1.00 Types: Cigarettes Smokeless tobacco: Former Tobacco comments: quit 2006 Vaping Use Vaping Use: Never used Substance Use Topics Alcohol use: Yes Alcohol/week: 5.0 standard drinks Types: 2 Glasses of Wine (5oz) per week Drug use: No Review of Symptoms REVIEW OF SYSTEMS See hpi EXAM: BP 120/82 (BP Site: Right Arm, BP Position: Sitting, BP Cuff Size: Large Adult) Pulse 60 Temp 36.3 C (97.4 F) Resp 16 Wt 96.6 kg (213 lb) BMI 30.35 kg/m General Appearance: Well appearing, alert, in no acute distress, well-hydrated, well nourished.. Neck: irritation and a scab noted in left nare and irritation noted on R side as well. No abnormal lesions present. Health Maintenance List DEPRESSION ASSESSMENT due on 11/12/2022 COVID-19 VACCINE(1) due on 08/28/2023 DTAP,TDAP,TD(3 - Td or Tdap) due on 11/03/2023 LIPID SCREEN due on 08/28/2027 HEPATITIS C SCREENING Completed HIV SCREENING Completed HEPATITIS B Discontinued INFLUENZA Discontinued Data reviewed ASSESSMENT/PLAN: 1. Irritation, nose - ICD9: 478.19, ICD10: J34.89 - Will begin treatment with as per antibiotic as written, see orders - advised patient to not attempt to pick. Follow up prn Mary Pruitt PA-C documented in this encounter [facility] 08-31-2022 Miscellaneous Notes Patient notified and voiced understanding. Vera Galindo MA Left message for patient to contact office. Vera Galindo MA Let patient know CBC, thyroid lab, PSA and blood sugar tests were all ok. Lipid panel showed Trigs slightly elevated at 160 (goal<150), HDL good at 49 and LDL elevated at 176 (goal<130). Advise working on reduced fat and cholesterol in diet and increased exercise for weight loss. documented in this encounter [facility] 08-28-2022 History of Presen t illness Narrative Chief Complaint Patient presents with: Physical HPI Mg Roach is a 42 year old male who presents here today for Physical. Patient with Hx of seasonal allergies, obesity, ex-smoker as well as those reviewed and addressed below and in ROS. Has been doing ok. Sometimes has some fatigue. Past medical history, appointments, medications, allergies reviewed. Previous Medical History PAST MEDICAL HISTORY Diagnosis Date Ex-smoker 08/19/2021 Started age 21 about a pack a week quit age 25 Obesity, Class I, BMI 30-34.9 08/20/2019 Seasonal allergic rhinitis due to pollen 08/20/2018 Previous Surgical History PAST SURGICAL HISTORY Procedure Laterality Date TONSILLECTOMY HX Family History FAMILY HISTORY Problem Relation Age of Onset None Mother Hypertension Father Hyperlipidemia Father None Brother None Brother Alzheimer's Disease Maternal Grandfather Coronary Artery Disease Paternal Grandfather 80's Stroke Paternal Grandfather Colon Cancer No Family History Prostate Cancer No Family History Breast Cancer No Family History Ovarian cancer No Family History Diabetes No Family History Kidney Disease No Family History Seizures No Family History Thyroid No Family History Patient Allergies ALLERGIES Allergen Reactions Seasonal Allergies Other: See Comments runny nose and sneezing Current Medications Current Outpatient Medications on File Prior to Visit Medication Sig fluticasone (FLONASE) 50 mcg/actuation nasal spray Use 2 Sprays in each nostril once daily. Rinse mouth after use. No current facility-administered medications on file prior to visit. Social History Social History Tobacco Use Smoking status: Former Packs/day: 0.50 Years: 2.00 Pack years: 1.00 Types: Cigarettes Smokeless tobacco: Former Tobacco comments: quit 2006 Vaping Use Vaping Use: Never used Substance Use Topics Alcohol use: Yes Alcohol/week: 5.0 standard drinks Types: 2 Glasses of Wine (5oz) per week Drug use: No Review of Symptoms REVIEW OF SYSTEMS GENERAL: No weight loss, malaise or fevers HEENT: Negative for frequent or significant headaches, No changes in hearing or vision, no nose bleeds or other nasal problems NECK: Negative for lumps, goiter, pain and significant neck swelling RESPIRATORY: Negative for cough, hemoptysis, wheezing, COPD, dyspnea or shortness of breath CARDIOVASCULAR: Negative for chest pain, leg swelling, hypertension, CHF or palpitations GI: No nausea, vomiting, or diarrhea, No heartburn or reflux symptoms, and no blood : No history of dysuria, blood MUSCULOSKELETAL: Negative for joint pain or swelling, back pain or muscle pain SKIN: Negative for lesions, rash, and itching PSYCH: Negative for sleep disturbance, mood disorder and recent psychosocial stressors HEMATOLOGY/LYMPHOLOGY: Negative for prolonged bleeding, bruising easily or swollen nodes ENDOCRINE: Negative for cold or heat intolerance, polyuria, polydipsia and goiter. See HPI NEURO: No history of headaches, syncope, paralysis, seizures or tremors EXAM: BP 126/92 (BP Site: Right Arm, BP Position: Sitting, BP Cuff Size: Large Adult) Pulse 72 Resp 14 Wt 106.1 kg (234 lb) BMI 33.34 kg/m BP 122/84 Pulse 72 Resp 14 Wt 106.1 kg (234 lb) BMI 33.34 kg/m Last 4 Encounter Wt Readings: Date: Wt: 08/28/2022 106.1 kg (234 lb) 03/28/2022 104.8 kg (231 lb) 08/19/2021 105.9 kg (233 lb 6.4 oz) 12/10/2020 104.8 kg (231 lb) General Appearance: Well appearing, alert, in no acute distress, well-hydrated, well nourished.. Skin: Skin color, texture, turgor normal, no suspicious rashes or lesions. Head: Normocephalic, no masses, lesions, tenderness or abnormalities. Eyes: Anicteric sclera. Pupils are equally round and reactive to light. Extraocular movements are intact. . Ears: External ears, TM's normal, canals clear. Neck: Supple, no adenopathy; thyroid symmetric, normal size, no bruits. Lungs: Lungs clear to auscultation. No wheezing, rhonchi, rales.. Heart: RRR without murmur, gallop, or rubs. No ectopy. Abdomen: Normal abdominal exam, Abdomen soft, non-tender. Bowel sounds normal. No masses, organomegaly. Extremities: No deformities, edema, skin discoloration, Good capillary refill. . Musculoskeletal: Spine range of motion normal. Muscular strength intact, No joint swelling, deformity, or tenderness. Peripheral Pulses: Normal. Neurologic: Gait normal. Reflexes normal and symmetric. Sensation to light touch and crainal nerves 2-12 intact.. Genitalia: Normal, Penis normal. No urethral discharge. Scrotum normal to palpation. No hernia.. Rectal: Normal exam. Health Maintenance List HEPATITIS B(1 of 3 - 3-dose series) Never done COVID-19 VACCINE(1) Never done DEPRESSION ASSESSMENT Never done DTAP,TDAP,TD(3 - Td or Tdap) due on 11/03/2023 LIPID SCREEN due on 08/17/2026 HEPATITIS C SCREENING Completed HIV SCREENING Completed INFLUENZA Discontinued Data reviewed A/P ASSESSMENT/PLAN: 1. Well adult exam - ICD9: V70.0, ICD10: Z00.00 (primary diagnosis) - Counseled on healthy diet and regular exercise - Discussed need for and benefit of weight loss. BMI 33.34 kg/(m^2) - Follow up for annual exam in one year - GLUCOSE FASTING BLD - HGB A1C - PSA/PROSTSPECAG DIAG - LIPID PANEL, NONFASTING - TSH BLD - CBC + DIFF 2. Fatigue, unspecified type - ICD9: 780.79, ICD10: R53.83 Check - TSH BLD - CBC + DIFF 3. Seasonal allergic rhinitis due to pollen - ICD9: 477.0, ICD10: J30.1 - cont flonase 4. Obesity, Class I, BMI 30-34.9 - ICD9: 278.00, ICD10: E66.9 Weight increasing - Behavioral intervention 5. Ex-smoker - ICD9: V15.82, ICD10: Z87.891 - patient to continue 6. Encounter for screening for diabetes mellitus - ICD9: V77.1, ICD10: Z13.1 Check - GLUCOSE FASTING BLD - HGB A1C 7. Encounter for lipid screening for cardiovascular disease - ICD9: V77.91, V81.2, ICD10: Z13.220, Z13.6 check - LIPID PANEL, NONFASTING 8. Screening for prostate cancer - ICD9: V76.44, ICD10: Z12.5 check - PSA/PROSTSPECAG DIAG F/u in a year for WAE or sooner if issues. Mark Cantu MD documented in this encounter [facility] 03-28-2022 History of Presen t illness Narrative Patient presents with: Groin Pain: since Sunday no injury HPI: Patient presents today for office visit for acute visit. Has had some issues on and off before. Noted it started on Sunday and is improving. Is between his scrotum and anus. Was tender to touch and felt like it was sticking up. No trauma. No dysuria. Pain on walking. No fever or chills. No testicular pain or swelling. No issues with urine or bowels. Used rest and ibuprofen. MEDICATIONS: Current Outpatient Medications Medication Sig fluticasone (FLONASE) 50 mcg/actuation nasal spray Use 2 Sprays in each nostril once daily. Rinse mouth after use. No current facility-administered medications for this visit. ALLERGIES: ALLERGIES Allergen Reactions Seasonal Allergies Other: See Comments runny nose and sneezing PAST MEDICAL HISTORY Diagnosis Date Ex-smoker 08/19/2021 Started age 21 about a pack a week quit age 25 Obesity, Class I, BMI 30-34.9 08/20/2019 Seasonal allergic rhinitis due to pollen 08/20/2018 PAST SURGICAL HISTORY Procedure Laterality Date TONSILLECTOMY HX FAMILY HISTORY Problem Relation Age of Onset None Mother Hypertension Father Hyperlipidemia Father None Brother None Brother Alzheimer's Disease Maternal Grandfather Coronary Artery Disease Paternal Grandfather 80's Stroke Paternal Grandfather Colon Cancer No Family History Prostate Cancer No Family History Breast Cancer No Family History Ovarian cancer No Family History Diabetes No Family History Kidney Disease No Family History Seizures No Family History Thyroid No Family History Social History Tobacco Use Smoking status: Former Smoker Packs/day: 0.50 Years: 2.00 Pack years: 1.00 Types: Cigarettes Smokeless tobacco: Former User Tobacco comment: quit 2006 Vaping Use Vaping Use: Never used Substance Use Topics Alcohol use: Yes Alcohol/week: 5.0 standard drinks Types: 2 Glasses of Wine (5oz) per week Drug use: No Reviewed current medications, allergies, past medical history, surgical history, family history and social history today. REVIEW OF SYSTEMS All other reviewed and negative other than HPI. HEALTH MAINTENANCE: Reviewed health maintenance issues today and recommended the following in detail. There are no preventive care reminders to display for this patient. VITALS: BP 130/86 Pulse 64 Resp 16 Wt 104.8 kg (231 lb) BMI 32.91 kg/m Last 4 Encounter Wt Readings: Date: Wt: 03/28/2022 104.8 kg (231 lb) 08/19/2021 105.9 kg (233 lb 6.4 oz) 12/10/2020 104.8 kg (231 lb) 08/23/2020 100.7 kg (222 lb) PHYSICAL EXAMINATION: General appearance: Well appearing, alert, in no acute distress, well-hydrated, well nourished. Skin: Skin color, texture, turgor normal, no suspicious rashes or lesions Head: Normocephalic, no masses, lesions, tenderness or abnormalities Extremities: No deformities, edema, skin discoloration, clubbing or cyanosis. Good capillary refill. Musculoskeletal: No joint swelling, deformity, or tenderness He is indicating mid perineum as the area of where he swelling and discomfort. Describes it as linear. No palpable lumps or soft tissue swelling today. Not tender. No redness. ASSESSMENT/PLAN: 1. Inguinal pain, unspecified laterality - ICD9: 789.09, ICD10: R10.30 - ? Muscular. Is better at this point. Continue ibu prn. If recurs, come in when active so we can see it. Familia Mercado RTO and prn. documented in this encounter [facility] 12-10-2020 History of Presen t illness Narrative Radiology Service Progress Note PATIENT NAME: Mg Raoch DATE OF SERVICE: December 10, 2020 TIME: 3:49 PM PATIENT IDENTITY VERIFICATION COMPLETED USING TWO (2) IDENTIFIERS: Name and Date of confirmed by patient verbally. FALL SCREENING: Has the patient had 2 falls in the last year or 1 fall with injury or currently using an Ambulatory Assistive Device (Walker, Cane, Wheelchair, Crutches, etc.)? No PATIENT GENDER DATA: Male PATIENT RELEVANT IMPLANT DATA REVIEWED: Yes RADIOLOGY DEPARTMENT: General X-ray: Exam(s) Completed: Lower Extremity X-Ray(s): Knee, AP / LAT Right and Wt. Bearing: PERIPHERAL IV DATA: Not applicable SIGNED BY: RT Vincenzo December 10, 2020 3:49 PM documented in this encounter [facility] 09-03-2014 History of Past i llness Narrative Problem Noted Date Resolved Date Calf pain 09/03/2014 08/20/2018 documented as of this encounter (statuses as of 03/28/2022) [address]23-2014 History of Past illness Narrative* Problem Noted Date Resolved Date Calf pain 09/03/2014 08/20/2018 documented as of this encounter (statuses as of 08/28/2022) [address]23-2014 History of Past illness Narrative* Problem Noted Date Resolved Date Calf pain 09/03/2014 08/20/2018 documented as of this encounter (statuses as of 08/31/2022) [facility] History of Past illness Narrative* Problem Noted Date Resolved Date Calf pain 09/03/2014 08/20/2018 documented as of this encounter (statuses as of 02/01/2023) [facility] History of Past illness Narrative* Problem Noted Date Diagnosed Date Resolved Date Calf pain 09/03/2014 08/20/2018 documented as of this encounter (statuses as of 07/06/2023) [facility] History of Past illness Narrative* Problem Noted Date Diagnosed Date Resolved Date Calf pain 09/03/2014 08/20/2018 documented as of this encounter (statuses as of 07/08/2023) [address]-2014 History of Past illness Narrative* Problem Noted Date Diagnosed Date Resolved Date Calf pain 09/03/2014 08/20/2018 documented as of this encounter (statuses as of 08/28/2023) [facility] History of Past illness Narrative* Problem Noted Date Diagnosed Date Resolved Date Calf pain 09/03/2014 08/20/2018 documented as of this encounter (statuses as of 10/13/2023) [address]-2014 History of Past illness Narrative* Problem Noted Date Diagnosed Date Resolved Date Calf pain 09/03/2014 08/20/2018 documented as of this encounter (statuses as of 11/11/2023) [facility] Inguinal pain, unspecified laterality- Primary [facility] Diagnosis Well adult exam- Primary Routine general medical examination at a health care facility Fatigue, unspecified type Seasonal allergic rhinitis due to pollen Obesity, Class I, BMI 30-34.9 Obesity, unspecified Ex-smoker Personal history of tobacco use, presenting hazards to health Encounter for screening for diabetes mellitus Screening for diabetes mellitus Encounter for lipid screening for cardiovascular disease Screening for lipoid disorders Screening for prostate cancer Special screening for malignant neoplasm of prostate [facility] Diagnosis Irritation, nose- Primary Other diseases of nasal cavity and sinuses [facility] Diagnosis Acute right ankle pain- Primary [facility] Diagnosis Well adult exam- Primary Routine general medical examination at a health care facility Obesity, Class I, BMI 30-34.9 Obesity, unspecified Seasonal allergic rhinitis due to pollen Encounter for screening for diabetes mellitus Screening for diabetes mellitus Screening for prostate cancer Special screening for malignant neoplasm of prostate Encounter for lipid screening for cardiovascular disease Screening for lipoid disorders Acute right ankle pain Excessive ear wax, left [facility] Diagnosis Rhinosinusitis- Primary Unspecified sinusitis (chronic) [facility] Diagnosis Acute right ankle pain [facility] Diagnosis Acute pain of right knee [facility] Diagnosis Well adult exam- Primary Routine general medical examination at a health care facility Seasonal allergic rhinitis due to pollen Obesity, Class I, BMI 30-34.9 Obesity, unspecified Screening for prostate cancer Special screening for malignant neoplasm of prostate Encounter for screening for diabetes mellitus Screening for diabetes mellitus Encounter for lipid screening for cardiovascular disease Screening for lipoid disorders [facility] Diagnosis Hyperlipidemia, mixed- Primary Mixed hyperlipidemia [facility] Diagnosis Abdominal pain, unspecified abdominal location- Primary [facility] Diagnosis Screening for prostate cancer- Primary Special screening for malignant neoplasm of prostate Hyperlipidemia, mixed Mixed hyperlipidemia Well adult exam Routine general medical examination at a health care facility Encounter for screening for diabetes mellitus Screening for diabetes mellitus [facility] Diagnosis Well adult exam- Primary Routine general medical examination at a health care facility Hyperlipidemia, mixed Mixed hyperlipidemia Ex-smoker Personal history of tobacco use, presenting hazards to health Obesity, Class I, BMI 30-34.9 Obesity, unspecified Encounter for screening examination for other mental health and behavioral disorders Screening for depression Encounter for screening for diabetes mellitus Screening for diabetes mellitus Screening for prostate cancer Special screening for malignant neoplasm of prostate documented in this encounter [facility] for referral (narrative)* Diagnostic Procedure Only (Urgent) - Closed Specialty Diagnoses / Procedures Referred By Contac t Referred To Contact XR IMAGING Diagnoses Acute right ankle pain Procedures XR ANKLE GENERAL 3V AP/LAT/OBL RIGHT RADEX ANKLE COMPLETE MINIMUM 3 VIEWS Mark Cantu MD [address] [place] [address] [place] [address] Referral ID Status Reason Start Date Expiration Date V isits Requested Visits Authorized [id number] Closed Auto-Generate d Referral 07/06/2023 08/04/2024 1 1 [facility] for referral (narrative)* Diagnostic Procedure Only (Urgent) - Closed Specialty Diagnoses / Procedures Referred By Contac t Referred To Contact XR IMAGING Diagnoses Acute right ankle pain Procedures XR ANKLE GENERAL 3V AP/LAT/OBL RIGHT RADEX ANKLE COMPLETE MINIMUM 3 VIEWS Mark Cantu MD [address] [place] [address] [place] [address] Referral ID Status Reason Start Date Expiration Date V isits Requested Visits Authorized [id number] Closed Auto-Generate d Referral 07/06/2023 08/04/2024 1 1 [facility] for visit Narrative* Diagnostic Procedure Only (Urgent) - Closed Specialty Diagnoses / Procedures Referred By Contac t Referred To Contact XR IMAGING Diagnoses Acute right ankle pain Procedures XR ANKLE GENERAL 3V AP/LAT/OBL RIGHT RADEX ANKLE COMPLETE MINIMUM 3 VIEWS Mark Cantu MD [address] [place] [address] [place] [address] Referral ID Status Reason Start Date Expiration Date V isits Requested Visits Authorized [id number] Closed Auto-Generate d Referral 07/06/2023 08/04/2024 1 1 [facility] Summary Purpose Family History No Family History Records FoundNo Family History Records FoundNo Family History Records FoundNo Family History Records Found Advance Directives No Advanced Directives Records FoundNo Advanced Directives Records FoundNo Advanced Directives Records FoundNo Advanced Directives Records Found Additional Source Comments (unrecognized sect ion and content) No Status Records FoundNo Status Records FoundNo Status Records FoundNo Status Records Found INFORMATION SOURCE (unrecogn ized section and content) DATE CREATED AUTHOR 08/20/2019 [facility] DATE CREATED AUTHOR AUTHOR'S ORGANIZ ATION 08/23/2019 [facility] DATE CREATED AUTHOR AUTHOR'S ORGANIZ ATION 11/22/2024 [facility] DATE CREATED AUTHOR AUTHOR'S ORGANIZ ATION 09/05/2025 [facility] Source Comments (unrecognize d section and content) In the event this informatio n is protected by the Federal Confidentiality of Alcohol and Drug Abuse Patient Records regulations: The Federal rules restrict any use of the information to criminally investigate or prosecute any alcohol or drug abuse patient.[facility] the event this information is protected by the Federal Confidentiality of Alcohol and Drug Abuse Patient Records regulations: The Federal rules restrict any use of the information to criminally investigate or prosecute any alcohol or drug abuse patient.[facility] the event this information is protected by the Federal Confidentiality of Alcohol and Drug Abuse Patient Records regulations: The Federal rules restrict any use of the information to criminally investigate or prosecute any alcohol or drug abuse patient.[facility] the event this information is protected by the Federal Confidentiality of Alcohol and Drug Abuse Patient Records regulations: The Federal rules restrict any use of the information to criminally investigate or prosecute any alcohol or drug abuse patient.[facility] the event this information is protected by the Federal Confidentiality of Alcohol and Drug Abuse Patient Records regulations: The Federal rules restrict any use of the information to criminally investigate or prosecute any alcohol or drug abuse patient.[facility] the event this information is protected by the Federal Confidentiality of Alcohol and Drug Abuse Patient Records regulations: The Federal rules restrict any use of the information to criminally investigate or prosecute any alcohol or drug abuse patient.[facility] the event this information is protected by the Federal Confidentiality of Alcohol and Drug Abuse Patient Records regulations: The Federal rules restrict any use of the information to criminally investigate or prosecute any alcohol or drug abuse patient.[facility] the event this information is protected by the Federal Confidentiality of Alcohol and Drug Abuse Patient Records regulations: The Federal rules restrict any use of the information to criminally investigate or prosecute any alcohol or drug abuse patient.[facility] the event this information is protected by the Federal Confidentiality of Alcohol and Drug Abuse Patient Records regulations: The Federal rules restrict any use of the information to criminally investigate or prosecute any alcohol or drug abuse patient.[facility] the event this information is protected by the Federal Confidentiality of Alcohol and Drug Abuse Patient Records regulations: The Federal rules restrict any use of the information to criminally investigate or prosecute any alcohol or drug abuse patient.[facility] the event this information is protected by the Federal Confidentiality of Alcohol and Drug Abuse Patient Records regulations: The Federal rules restrict any use of the information to criminally investigate or prosecute any alcohol or drug abuse patient.[facility] the event this information is protected by the Federal Confidentiality of Alcohol and Drug Abuse Patient Records regulations: The Federal rules restrict any use of the information to criminally investigate or prosecute any alcohol or drug abuse patient.[facility] the event this information is protected by the Federal Confidentiality of Alcohol and Drug Abuse Patient Records regulations: The Federal rules restrict any use of the information to criminally investigate or prosecute any alcohol or drug abuse patient.[facility] the event this information is protected by the Federal Confidentiality of Alcohol and Drug Abuse Patient Records regulations: The Federal rules restrict any use of the information to criminally investigate or prosecute any alcohol or drug abuse patient.[facility] the event this information is protected by the Federal Confidentiality of Alcohol and Drug Abuse Patient Records regulations: The Federal rules restrict any use of the information to criminally investigate or prosecute any alcohol or drug abuse patient.[facility] the event this information is protected by the Federal Confidentiality of Alcohol and Drug Abuse Patient Records regulations: The Federal rules restrict any use of the information to criminally investigate or prosecute any alcohol or drug abuse patient.[facility] Hospital[facility] the event this information is protected by the Federal Confidentiality of Alcohol and Drug Abuse Patient Records regulations: The Federal rules restrict any use of the information to criminally investigate or prosecute any alcohol or drug abuse patient.[facility] the event this information is protected by the Federal Confidentiality of Alcohol and Drug Abuse Patient Records regulations: The Federal rules restrict any use of the information to criminally investigate or prosecute any alcohol or drug abuse patient.[facility] the event this information is protected by the Federal Confidentiality of Alcohol and Drug Abuse Patient Records regulations: The Federal rules restrict any use of the information to criminally investigate or prosecute any alcohol or drug abuse patient.[facility] the event this information is protected by the Federal Confidentiality of Alcohol and Drug Abuse Patient Records regulations: The Federal rules restrict any use of the information to criminally investigate or prosecute any alcohol or drug abuse patient.[facility] the event this information is protected by the Federal Confidentiality of Alcohol and Drug Abuse Patient Records regulations: The Federal rules restrict any use of the information to criminally investigate or prosecute any alcohol or drug abuse patient.[facility] Hospital[facility] the event this information is protected by the Federal Confidentiality of Alcohol and Drug Abuse Patient Records regulations: The Federal rules restrict any use of the information to criminally investigate or prosecute any alcohol or drug abuse patient.[facility] Reason for Visit (unrecogniz ed section and content) Reason Comments Groin Pain since Sunday no in jury Reason Comments Physical Reason Comments Results Reason Comments Derm Problem Patient states bump on left side nose Reason Comments Acute Visit R ankle pain x1 rico h; heard a pop about 1 month ago Reason Comments Sinus Problem Returns from Sunday, symptoms worsen Reason Comments Orders Reason Comments Consult Reason Comments Appointment Reason Comments Forms Reason Comments Well Adult Reason Onset Date Comments Results 05/19/2025 Care Teams (unrecognized sec tion and content) Work Force Advisor Relationship Specialty Start Date End Date Mark Cantu MD [address] [place], [place] [address] [phone] PCP - General Family Practice 11/02/21 Work Force Advisor Relationship Specialty Start Date End Date Mark Cantu MD [address] [place], [place] [address] [phone] PCP - General Family Medicine 11/02/21 Work Force Advisor Relationship Specialty Start Date End Date Mark Cantu MD [address] [place] [address] PCP - General Family Medicine 11/02/21 Work Force Advisor Relationship Specialty Start Date End Date Mark Cantu MD [address] [place], [place] [address] [phone] PCP - General Family Medicine 11/02/21 Work Force Advisor Relationship Specialty Start Date End Date Mark Cantu MD [address] [place], [place] [address] [phone] PCP - General Family Medicine 11/02/21 Work Force Advisor Relationship Specialty Start Date End Date Mark Cantu MD [address] [place], [place] [address] [phone] PCP - General Family Medicine 11/02/21 Work Force Advisor Relationship Specialty Start Date End Date Mark Cantu MD [address] [place] [address] PCP - General Family Medicine 11/02/21 Work Force Advisor Relationship Specialty Start Date End Date Mark Cantu MD [facility] [place] [address] PCP - General Family Medicine 11/02/21 Work Force Advisor Relationship Specialty Start Date End Date Doc Tong III, MD [place]ESS PCP - General 09/02/02 11/01/21 Work Force Advisor Relationship Specialty Start Date End Date Mark Cantu MD [address] [place] [phone] PCP - General Family Medicine 11/02/21 Karissa De La Fuente APRN.AUTOMOTIVE SOFTWARE ENGINEER [address] [place] [phone] Numerical Control Lathe Operator Family Medicine 10/18/24 Mary Pruitt PA-C [address] [place] [address] Numerical Control Lathe Operator Family Medicine 10/18/24 Work Force Advisor Relationship Specialty Start Date End Date Mark Cantu MD [address] [place] [phone] PCP - General Family Medicine 11/02/21 Karissa De La Fuente, SPRING MAKER.AUTOMOTIVE SOFTWARE ENGINEER [address] [place] [phone] Numerical Control Lathe Operator Family Medicine 10/18/24 Mary Pruitt PA-C [facility] [place] [address] Numerical Control Lathe Operator Family Medicine 10/18/24 Work Force Advisor Relationship Specialty Start Date End Date Mark Cantu MD [address] [place] [address] PCP - General Family Medicine 11/02/21 Karissa De La Fuente APRN.AUTOMOTIVE SOFTWARE ENGINEER [address] [place] [address] Numerical Control Lathe Operator Family Medicine 10/18/24 Mary Pruitt PA-C [address] [place] [address] Numerical Control Lathe Operator Family Medicine 10/18/24 Work Force Advisor Relationship Specialty Start Date End Date Mark Cantu MD [address] [place] [address] PCP - General Family Medicine 11/02/21 Karissa De La Fuente APRN.AUTOMOTIVE SOFTWARE ENGINEER [address] [place] [address] Numerical Control Lathe Operator Family Medicine 10/18/24 Mary Pruitt PA-C [address] [place] [address] Numerical Control Lathe Operator Family Medicine 10/18/24 Work Force Advisor Relationship Specialty Start Date End Date Mark Catnu MD [address] [place] [address] PCP - General Family Medicine 11/02/21 Karissa De La Fuente APRN.AUTOMOTIVE SOFTWARE ENGINEER [address] [place] [address] Numerical Control Lathe Operator Family Medicine 04/13/25 Mary Pruitt PA-C [address] [place] [address] [facility] 04/13/25 Work Force Advisor Relationship Specialty Start Date End Date Mark Cantu MD [address] [place], [place] [address] PCP - [facility] 11/02/21 Karissa De La Fuente APRN.AUTOMOTIVE SOFTWARE ENGINEER [address] [place], [place] [address] [phone] [facility] 04/13/25 Mary Pruitt PA-C [address] [place] [address] [facility] 04/13/25 Work Force Advisor Relationship Specialty Start Date End Date Mark Cantu MD [address] [place] [address] PCP - [facility] 11/02/21 Karissa De La Fuente APRN.AUTOMOTIVE SOFTWARE ENGINEER [address] [place] [address] [facility] 04/13/25 Mary Pruitt PA-C [address] [place], [place] [address] [facility] 04/13/25 FOR RECORDS PERTAINING TO PATIENTS WHO ARE OR HAVE BEEN ENROLLED IN A CHEMICAL DEPENDENCY/SUBSTANCEABUSE PROGRAM, SOME INFORMATION MAY BE OMITTED. This clinical summary was aggregated from multiple sources. Caution should be exercised in using it in the provision of clinical care. This summary normalizes information from multiple sources, and as a consequence, information in this document may materially change the coding, format and clinical context of patient data. In addition, data may be omitted in some cases. CLINICAL DECISIONS SHOULD BE BASED ON THE PRIMARY CLINICAL RECORDS. [facility] [employer] [facility]. provides no warranty or guarantee of the accuracy or completeness of information in this document.
[2025-10-21] MEDS: 0.9% Normal Saline (1000mL) 1,000 ML 999 ML IV (22:10)
[2025-10-21 22:11] LABS: Mucous, Urine 0 SEEN /hpf (<or=2+); Squamous Epithelial Cells - UA 0 SEEN /hpf (0-5)
--- NOTE | 2025-10-21 22:15 | CT_ITS ---
PROCEDURE: ABDOMEN/PELVIS W IV CONT ONLY 10/21/2025 REASON FOR EXAM: FEVER, LEUKOCYTOSIS TECHNIQUE: Procedure Code: [id number] Modality: CT Procedure: ABDOMEN/PELVIS W IV CONT ONLY Coronal and Sagittal reconstruction series were provided. CONTRAST: VOLUME: mL One or more dose reduction techniques were used (e.g., Automated exposure control, adjustment of the mA and/or kV according to patient size, use of iterative reconstruction technique. COMPARISON: 11/02/2024. FINDINGS: Patchy and reticular opacities within both lung bases are similar to the previous study and compatible with infiltrates, more pronounced on the left. Mild fatty liver. The gallbladder, pancreas, spleen, adrenal glands, kidneys, and urinary bladder appear unremarkable. Moderate amount of stool within the colon. No evidence of a bowel obstruction. No bowel wall thickening. The appendix is visualized and unremarkable. No intraperitoneal free air or free fluid. No abdominal nor pelvic lymphadenopathy. No acute osseous abnormality. No acute fracture. CT/Abdomen/Pelvis W IV Cont ONLY IMPRESSION: No CT evidence of an acute abdominal or pelvic process. Bibasilar pulmonary infiltrates, more pronounced on the left. Similar findings are noted on the previous study. Reading Location: [id number]
[2025-10-21 22:32] LABS: Color, Urine Yellow (Yellow); Glucose, Dipstick Normal (Normal); Ketone-Dipstick Negative (Negative); Leukocyte Esterase-Dipstick Negative /ul (Negative); Nitrite-Dipstick Negative (Negative); Occult Blood-Urine Negative /ul (Negative); Protein-Dipstick 15 mg/dl (Negative); Specific Gravity, Urine 1.010 (1.002-1.030); Urine Bilirubin Dipstick Negative (Negative)
[2025-10-21 23:32] LABS: Red Blood Cells-Urine 0-5 SEEN /hpf (0-5)
== END 2025-10-21 23:56 | disposition home or self-care (01) ==
PROVIDERS: Emergency Provider Emergency Medicine; PCP Family Medicine; Visit Provider Emergency Medicine
DX: J15.9 Unspecified bacterial pneumonia (principal); R11.10 Vomiting, unspecified; Z87.891 Personal history of nicotine dependence; R00.0 Tachycardia, unspecified; R50.9 Fever, unspecified
CPT/HCPCS: 71045; 74177; 80053; 81001; 83605; 85025; 87631; 87651; 93005; 96361; 96374; 96375; 99284; Q9967; A4216; J2405